=== PATIENT | female | born 1950 | race Caucasian/White ===

== ENCOUNTER 2022-07-30 13:00 | Outpatient (RCR) | payer MEDICARE, MEDICAID, SELFPAY ==
--- NOTE | 2022-05-12 14:20 | HP.PTEVAL_ITS ---
Patient's Visit Information ANA Lopez CASE is a 71 year old F referred to Physical Therapy by DANIEL CASTILLO with a diagnosis of R TKA 02/12/22. Date of Evaluation: 05/12/22 Physical Therapist: Bharath Scott, PT, ATC - Visit Plan Frequency: 3x /Week Duration: 4 Weeks Plan: R knee stretching and strengthening, balance and proprio, core strengthening, everardo, and HEP - Subjective DOS: 02/12/22. Pt reports she had a R TKA performed at that time. Pt reports she had home health after that for only 11 visits over the past 3 months. Pt reports she is still in a lot of pain at this time, more at some times than others. Pt reports she has done pretty well with her rehab at this time, but notes she is unable to fully extend her R knee. Pt reports she continues to experience sleep difficulty at this time secondary to pain. Pt reports occasional tingling and numbness in R LE. Pt has no stairs at home. Pt reports she is able to perform most of her house chores at this time, but is limited secondary to pain and fatigue. 1/10 pain at rest, 4/10 pain at worst (when she goes out and walks for a period of time) - Pain R knee Pain Intensity (Out of 10): 1 Pain Intensity Range: 4 - Objective Neuro: B LE sensation is WNL to light touch. Girth at joint line: L knee 36 cm, R knee 41 cm. ROM: L knee 0-10-120; R knee 0-20-110 degrees. MMT: L knee flex= 30, ext= 37 #F; R knee flex= 23, ext= 25 #F. TU.74 seconds. Stairs: Pt is very slow with negotiation. Requires 2 UE's. reciprocal up stairs, one at a time down stairs - Balance/Special Test Scores Lower Extremity Functional Score: 34 - Goals Goal 1:: Decrease R knee pain x 50% to aid with sleep Goal Time Frame: 4-6 Weeks Goal 2:: Increase R knee ROM x 20 degrees to aid with restoring a more normalized gait pattern Goal Time Frame: 4-6 Weeks Goal 3:: Increase R knee strength x 5-10 #F to aid with stair negotiation Goal Time Frame: 4-6 Weeks Goal 4:: I with HEP Goal Time Frame: 4-6 Weeks - Rehabilitation Potential Physical Therapy Diagnosis: Pt has R knee pain, weakness, and limited ROM secondary to R TKA Rehabilitation Potential: Good - Anticipated Interventions Patient/Client Instruction: Educate patient on: Condition, Plan of Care For the Purpose of:: To improve self management Therapeutic Exercise to Include: Strength training, Endurance training, Balance training, Gait and locomotor training, Passive ROM, Active ROM, Dynamic Lumbar Stabilization For the Purpose of:: To decrease pain, To increase ROM, To improve muscle performance and motor function Cryotherapy (ice pack, ice massage): Yes For the Purpose of:: To decrease pain Thank you for the opportunity to evaluate your patient. For Medicare and Medicare HMO plans, please review the plan of care and approve it. It will need to be FAXED BACK to us at [phone] for Medicare purposes. For Medicare only, by signing this I certify the plan of care. Please let me know if there are questions or concerns regarding this plan of care. Physician Signature: Date:
--- NOTE | 2022-06-15 15:07 | HP.PTREVAL ---
DANIEL CASTILLO, It has been my pleasure to treat ANA Lopez CASE over the last 12 visits for R TKA 02/12/22. Please see the progress note below for an update on the physical therapy plan of care! Subjective: Only mild pain this date Objective/Function: R knee pain ranges from 1-3/10. R knee MMT: flex= 21, ext= 38 #F. R knee ROM: 0-15-107 degrees Plan Plan: Recheck following DrArgelia visit Balance/Gait/Functional tests - Balance/Special Test Scores Lower Extremity Functional Score: 34 Goals Goal 1:: Decrease R knee pain x 50% to aid with sleep Goal Time Frame: 4-6 Weeks Goal Progress: Goal Met Goal 2:: Increase R knee ROM x 20 degrees to aid with restoring a more normalized gait pattern Goal Time Frame: 4-6 Weeks Goal Progress: Progressing Goal 3:: Increase R knee strength x 5-10 #F to aid with stair negotiation Goal Time Frame: 4-6 Weeks Goal Progress: Progressing Goal 4:: I with HEP Goal Time Frame: 4-6 Weeks Goal Progress: Goal Met Anticipated Interventions Patient/Client Instruction: Educate patient on: Condition, Plan of Care For the Purpose of:: To improve self management Therapeutic Exercise to Include: Strength training, Endurance training, Balance training, Gait and locomotor training, Passive ROM, Active ROM, Dynamic Lumbar Stabilization For the Purpose of:: To decrease pain, To increase ROM, To improve muscle performance and motor function Cryotherapy (ice pack, ice massage): Yes For the Purpose of:: To decrease pain Please do not hesitate to contact me at [phone] by phone or if you have questions or concerns regarding this new plan of care! Sincerely, Bharath Scott, PT, ATC
--- NOTE | 2022-07-05 10:35 | HP.PTREVAL ---
DANIEL CASTILLO, It has been my pleasure to treat ANA Lopez CASE over the last 17 visits for R TKA 02/12/22. Please see the progress note below for an update on the physical therapy plan of care! Subjective: Pt reports her pain ranges from 1-3/10 Objective/Function: R knee pain ranges from 1-3/10. R knee MMT: ext= 22 #F, flex= 35 #F. R knee ROM: 0-20-103. Pt is able to negotiate one flight of stairs, but negotiates stairs one step at a time and requires 2 handrails. Pt is showing excellent progress with strength and pain, but still lacks functional ROM for IADL's Plan Plan: Attempt to get 12 more visits to focus on functional strength and ROM of the R knee Balance/Gait/Functional tests - Balance/Special Test Scores Lower Extremity Functional Score: 43 Goals Goal 1:: Decrease R knee pain x 50% to aid with sleep Goal Time Frame: 4-6 Weeks Goal Progress: Goal Met Goal 2:: Increase R knee ROM x 20 degrees to aid with restoring a more normalized gait pattern Goal Time Frame: 4-6 Weeks Goal Progress: Progressing Goal 3:: Increase R knee strength x 5-10 #F to aid with stair negotiation Goal Time Frame: 4-6 Weeks Goal Progress: Progressing Goal 4:: I with HEP Goal Time Frame: 4-6 Weeks Goal Progress: Goal Met Goal 5:: Pt will be able to negotiate 10 stairs reciprocally with no handrails to aid with safety in the community Goal Time Frame: 4-6 Weeks Goal Progress: New goal Anticipated Interventions Patient/Client Instruction: Educate patient on: Condition, Plan of Care For the Purpose of:: To improve self management Therapeutic Exercise to Include: Strength training, Endurance training, Balance training, Gait and locomotor training, Passive ROM, Active ROM, Dynamic Lumbar Stabilization For the Purpose of:: To decrease pain, To increase ROM, To improve muscle performance and motor function Cryotherapy (ice pack, ice massage): Yes For the Purpose of:: To decrease pain Please do not hesitate to contact me at [phone] by phone or if you have questions or concerns regarding this new plan of care! Sincerely, Bharath Scott, PT, ATC
--- NOTE | 2022-11-18 17:36 | HP.PT.NRP ---
ANA Lopez CASE was seen in my office for initial evaluation on 05/12/22. The following Plan of Care was established for this patient: Initial Frequency: 3x /Week Initial Duration: 4 Weeks Patient/Client Instruction: Educate patient on: Condition, Plan of Care For the Purpose of:: To improve self management Therapeutic Exercise to Include: Strength training, Endurance training, Balance training, Gait and locomotor training, Passive ROM, Active ROM, Dynamic Lumbar Stabilization For the Purpose of:: To decrease pain, To increase ROM, To improve muscle performance and motor function Cryotherapy (ice pack, ice massage): Yes For the Purpose of:: To decrease pain This patient was last seen in our office . Pertinent comments regarding their Physical therapy will appear below: Care was transferred to another v # At this point I will be discontinuing this patient from physical therapy. I would be happy to see this patient again in the future if found appropriate by the physician. Thank you! Bharath Scott, PT, ATC Balance/Gait/Functional tests - Balance/Special Test Scores Lower Extremity Functional Score: 43
== END 2022-07-30 19:00 | disposition home or self-care (01) ==
LOC: PT 13:00
PROVIDERS: PCP Family Medicine
DX: M17.11 Unilateral primary osteoarthritis, right knee (principal); Z96.651 Presence of right artificial knee joint; Z47.1 Aftercare following joint replacement surgery
CPT/HCPCS: 97110; 97161; 97164

== ENCOUNTER 2023-02-21 11:00 | Outpatient (RCR) | payer MEDICARE, MEDICAID, SELFPAY ==
--- NOTE | 2022-08-11 10:49 | HP.PTEVAL ---
Patient's Visit Information ANA Lopez CASE is a 72 year old F referred to Physical Therapy by DANIEL CASTILLO with a diagnosis of S/P TOTAL KNEE ARTHOPLASTY ,RIGHT ,OSTOARTHRITIS RIGHT. Date of Evaluation: 08/11/22 Physical Therapist: Jer Herman, PT, Cert MDT, OCS - Visit Plan Frequency: 2x /Week Duration: 4 Weeks Plan: PT INTERVETIONS ROM/FLEXABILITY KNEE ,STRENGTHENING QUADS/HAMS/HIP ,AND FUNCTIIONAL STRENGTHNEING - Subjective This 72 y/o female presents to physical therapy with right TKA done by Dr. Luecro February 12 at [facility]. Patient d/c to home thus had to return to [facility] due pain for~ 5 days then transferred to [facility] ~ 2//2 weeks then had 2 months of [facility] PT . Then had PT at for TKR . Patient has is story home no stairs. Patient has both walk-in in shower and tub/shower. Patient has no pain . Patient uses cane occasionally . Patient sleeping good. Patient denies paresthesia/tingling. Patient seen June. Patient goal to ambualted with no cane and improve function. Patient TKA impairs function and ADLS'. Patient has had 2 other knee surgery arthroscopy . SOCIAL: significant other. VOCATION: retired - Objective POSTURE: mild forward posture knee slightly flexed forward. PALAPTION : unremarkable. NEURO: denies paresthesia/tingling ,reflexes C5-6-7 1/3 ,. EDEMA: absent. AROM: 10- 115 supine knee flexion. MMT: ( peak force) quads 36.7 , hamstrings 30.5 ,hip flexion 32.5 , ankle 5/5. GAIT: reciprocal pattern pattern mild stance swing phase swing phase. STAIRS: one step at descending ,ascending alternating 2 rails - Balance/Special Test Scores % Disability: 100 Lower Extremity Functional Score: 42 TUG Test Time Seconds: 10.2 - Goals Goal 1:: Patient to be I with comprehensive HEP Goal Time Frame: 4-6 Weeks Goal 2:: Patient normalize gait with improved swing phase during gait cycle Goal Time Frame: 4-6 Weeks Goal 3:: Patient to improve peak force by by 5-10 quads/hams improve function Goal Time Frame: 4-6 Weeks Goal 4:: Patient improve WOMAC by 5 points to improve function Goal Time Frame: 4-6 Weeks Goal 5:: Patient improve ROM flexion and extension by 5-10 degrees to improve gait Goal Time Frame: 4-6 Weeks Goal 6:: Patient to improve LFES score by 5 -10 points to improve gait - Rehabilitation Potential Physical Therapy Diagnosis: This patient underwent s/p TKR with current deficits of decrease ,gait ,ROM and stairs thus benefit from skilled PT Rehabilitation Potential: Good - Anticipated Interventions Patient/Client Instruction: Educate patient on: Condition, Plan of Care For the Purpose of:: To decrease pain, To increase ROM, To improve muscle performance and motor function, To improve ability to perform ADL's, To increase tolerance to activity/condition/position, To improve ability of physical actions for home/community/work/leisure, To improve health of tissue, To decrease soft tissue restriction, To increase flexibility/ROM Therapeutic Exercise to Include: Strength training, Endurance training, Balance training, Flexibilty training, Gait and locomotor training, Passive ROM, Active ROM Comment: quads/hams/hip For the Purpose of:: To decrease pain, To increase ROM, To improve muscle performance and motor function, To improve ability to perform ADL's, To increase tolerance to activity/condition/position, To improve ability of physical actions for home/community/work/leisure, To improve gait and locomotor functions, To improve health of tissue, To decrease soft tissue restriction, To increase flexibility/ROM, To improve endurance, To improve balance Thank you for the opportunity to evaluate your patient. For Medicare and Medicare HMO plans, please review the plan of care and approve it. It will need to be FAXED BACK to us at [phone] for Medicare purposes. For Medicare only, by signing this I certify the plan of care. Please let me know if there are questions or concerns regarding this plan of care. Physician Signature: Date:
--- NOTE | 2022-09-10 11:00 | HP.PTREVAL ---
DANIEL CASTILLO, It has been my pleasure to treat ANA Lopez CASE over the last 13 visits for S/P TOTAL KNEE ARTHOPLASTY ,RIGHT ,OSTOARTHRITIS RIGHT. Please see the progress note below for an update on the physical therapy plan of care! Subjective: Pt reports her balance is still poor. She notes she has lost her balance recently, mostly while negotiating stairs Objective/Function: R knee pain ranges from 2-3/10. R knee MMT: flex= 31, ext= 41 #F. R knee ROM: 0-15-115. Pt is progressing well toward Rx goals, but continues to experience unsteadiness with gait Plan Plan: PT INTERVETIONS ROM/FLEXABILITY KNEE ,STRENGTHENING QUADS/HAMS/HIP ,AND FUNCTIIONAL STRENGTHNEING Balance/Gait/Functional tests - Balance/Special Test Scores % Disability: 100 Lower Extremity Functional Score: 40 TUG Test Time Seconds: 10.2 Tug Test: <20 sec.=mostly independent Goals Goal 1:: Patient to be I with comprehensive HEP Goal Time Frame: 4-6 Weeks Goal Progress: Progressing Goal 2:: Patient normalize gait with improved swing phase during gait cycle Goal Time Frame: 4-6 Weeks Goal Progress: Goal Met Goal 3:: Patient to improve peak force by by 5-10 quads/hams improve function Goal Time Frame: 4-6 Weeks Goal Progress: Goal Met Goal 4:: Patient improve WOMAC by 5 points to improve function Goal Time Frame: 4-6 Weeks Goal Progress: Not tested today Goal 5:: Patient improve ROM flexion and extension by 5-10 degrees to improve gait Goal Time Frame: 4-6 Weeks Goal Progress: Progressing Goal 6:: Patient to improve LFES score by 5 -10 points to improve gait Anticipated Interventions Patient/Client Instruction: Educate patient on: Condition, Plan of Care For the Purpose of:: To decrease pain, To increase ROM, To improve muscle performance and motor function, To improve ability to perform ADL's, To increase tolerance to activity/condition/position, To improve ability of physical actions for home/community/work/leisure, To improve health of tissue, To decrease soft tissue restriction, To increase flexibility/ROM Therapeutic Exercise to Include: Strength training, Endurance training, Balance training, Flexibilty training, Gait and locomotor training, Passive ROM, Active ROM Comment: quads/hams/hip For the Purpose of:: To decrease pain, To increase ROM, To improve muscle performance and motor function, To improve ability to perform ADL's, To increase tolerance to activity/condition/position, To improve ability of physical actions for home/community/work/leisure, To improve gait and locomotor functions, To improve health of tissue, To decrease soft tissue restriction, To increase flexibility/ROM, To improve endurance, To improve balance Please do not hesitate to contact me at [phone] by phone or if you have questions or concerns regarding this new plan of care! Sincerely, Bharath Scott, PT, ATC
--- NOTE | 2022-10-29 07:18 | HP.PTREVAL_ITS ---
DANIEL CASTILLO, It has been my pleasure to treat ANA Lopez CASE over the last 26 visits for S/P TOTAL KNEE ARTHOPLASTY ,RIGHT ,OSTOARTHRITIS RIGHT. Please see the progress note below for an update on the physical therapy plan of care! Subjective: I am getting better overall, but I still have pain and feel weak Objective/Function: R knee pain is 2/10 and remains at that level. R knee MMT: flex= 22, ext= 39 #F. R knee ROM: 0-15-115. Pt is still progressing well with strength, but lacks functional ext ROM and still painful Plan Plan: Cont with progressing R LE stretching and strengthening Balance/Gait/Functional tests - Balance/Special Test Scores % Disability: 100 Lower Extremity Functional Score: 41 TUG Test Time Seconds: 10.2 Tug Test: <20 sec.=mostly independent Goals Goal 1:: Patient to be I with comprehensive HEP Goal Time Frame: 4-6 Weeks Goal Progress: Progressing Goal 2:: Patient normalize gait with improved swing phase during gait cycle Goal Time Frame: 4-6 Weeks Goal Progress: Goal Met Goal 3:: Patient to improve peak force by by 5-10 quads/hams improve function Goal Time Frame: 4-6 Weeks Goal Progress: Goal Met Goal 4:: Patient improve WOMAC by 5 points to improve function Goal Time Frame: 4-6 Weeks Goal Progress: Not tested today Goal 5:: Patient improve ROM flexion and extension by 5-10 degrees to improve gait Goal Time Frame: 4-6 Weeks Goal Progress: Progressing Goal 6:: Patient to improve LFES score by 5 -10 points to improve gait Anticipated Interventions Patient/Client Instruction: Educate patient on: Condition, Plan of Care For the Purpose of:: To decrease pain, To increase ROM, To improve muscle performance and motor function, To improve ability to perform ADL's, To increase tolerance to activity/condition/position, To improve ability of physical actions for home/community/work/leisure, To improve health of tissue, To decrease soft tissue restriction, To increase flexibility/ROM Therapeutic Exercise to Include: Strength training, Endurance training, Balance training, Flexibilty training, Gait and locomotor training, Passive ROM, Active ROM Comment: quads/hams/hip For the Purpose of:: To decrease pain, To increase ROM, To improve muscle per formance and motor function, To improve ability to perform ADL's, To increase tolerance to activity/condition/position, To improve ability of physical actions for home/community/work/leisure, To improve gait and locomotor functions, To improve health of tissue, To decrease soft tissue restriction, To increase flexibility/ROM, To improve endurance, To improve balance Please do not hesitate to contact me at [phone] by phone or if you have questions or concerns regarding this new plan of care! Sincerely, Bharath Scott, PT, ATC
--- NOTE | 2022-12-03 09:39 | HP.PTREVAL ---
DANIEL CASTILLO, It has been my pleasure to treat ANA Lopez CASE over the last 35 visits for S/P TOTAL KNEE ARTHOPLASTY ,RIGHT ,OSTOARTHRITIS RIGHT. Please see the progress note below for an update on the physical therapy plan of care! Subjective: I am really sore today. Pain woke me up last night. Objective/Function: R knee pain ranges from 3-5/10. R knee MMT: flex= 16, ext= 23 #F. R knee ROM: 0-10-108 degrees. Pt continues to have pain, limited ROM, and weakness in the R knee Plan Plan: Cont with progressing R knee ROM, R LE stretching and strengthening Balance/Gait/Functional tests - Balance/Special Test Scores % Disability: 100 Lower Extremity Functional Score: 37 TUG Test Time Seconds: 10.2 Tug Test: <20 sec.=mostly independent Goals Goal 1:: Patient to be I with comprehensive HEP Goal Time Frame: 4-6 Weeks Goal Progress: Progressing Goal 2:: Patient normalize gait with improved swing phase during gait cycle Goal Time Frame: 4-6 Weeks Goal Progress: Goal Met Goal 3:: Patient to improve peak force by by 5-10 quads/hams improve function Goal Time Frame: 4-6 Weeks Goal Progress: Progressing Goal 4:: Patient improve WOMAC by 5 points to improve function Goal Time Frame: 4-6 Weeks Goal Progress: Not tested today Goal 5:: Patient improve ROM flexion and extension by 5-10 degrees to improve gait Goal Time Frame: 4-6 Weeks Goal Progress: Not Progressing Goal 6:: Patient to improve LFES score by 5 -10 points to improve gait Goal Progress: regressed as of today due Anticipated Interventions Patient/Client Instruction: Educate patient on: Condition, Plan of Care For the Purpose of:: To decrease pain, To increase ROM, To improve muscle performance and motor function, To improve ability to perform ADL's, To increase tolerance to activity/condition/position, To improve ability of physical actions for home/community/work/leisure, To improve health of tissue, To decrease soft tissue restriction, To increase flexibility/ROM Therapeutic Exercise to Include: Strength training, Endurance training, Balance training, Flexibilty training, Gait and locomotor training, Passive ROM, Active ROM Comment: quads/hams/hip For the Purpose of:: To decrease pain, To increase ROM, To improve muscle performance and motor function, To improve ability to perform ADL's, To increase tolerance to activity/condition/position, To improve ability of physical actions for home/community/work/leisure, To improve gait and locomotor functions, To improve health of tissue, To decrease soft tissue restriction, To increase flexibility/ROM, To improve endurance, To improve balance Please do not hesitate to contact me at [phone] by phone or if you have questions or concerns regarding this new plan of care! Sincerely, Bharath Scott, PT, ATC
--- NOTE | 2023-01-06 11:27 | HP.PTREVAL_ITS ---
DANIEL CASTILLO, It has been my pleasure to treat ANA Lopez CASE over the last 43 visits for S/P TOTAL KNEE ARTHOPLASTY ,RIGHT ,OSTOARTHRITIS RIGHT. Please see the progress note below for an update on the physical therapy plan of care! Subjective: I was very sore yesterday. I am better today Objective/Function: R knee pain ranges from 2-3/10. R knee MMT: flex= 39, ext= 30 #F. R knee ROM: 0-18-110 degrees. Pt still lacks functional strength and ROM in her R knee for all IADL's Plan Plan: Focus on R knee quad strengthening and R knee ROM Balance/Gait/Functional tests - Balance/Special Test Scores % Disability: 100 Lower Extremity Functional Score: 43 TUG Test Time Seconds: 10.2 Tug Test: <20 sec.=mostly independent Goals Goal 1:: Patient to be I with comprehensive HEP Goal Time Frame: 4-6 Weeks Goal Progress: Goal Met Goal 2:: Patient normalize gait with improved swing phase during gait cycle Goal Time Frame: 4-6 Weeks Goal Progress: Goal Met Goal 3:: Patient to improve peak force by by 5-10 quads/hams improve function Goal Time Frame: 4-6 Weeks Goal Progress: Goal Met Goal 4:: Patient improve WOMAC by 5 points to improve function Goal Time Frame: 4-6 Weeks Goal Progress: Not tested today Goal 5:: Patient improve ROM flexion and extension by 5-10 degrees to improve gait Goal Time Frame: 4-6 Weeks Goal Progress: Progressing Goal 6:: Patient to improve LFES score by 5 -10 points to improve gait Goal Progress: Progressing Anticipated Interventions Patient/Client Instruction: Educate patient on: Condition, Plan of Care For the Purpose of:: To decrease pain, To increase ROM, To improve muscle performance and motor function, To improve ability to perform ADL's, To increase tolerance to activity/condition/position, To improve ability of physical actions for home/community/work/leisure, To improve health of tissue, To decrease soft tissue restriction, To increase flexibility/ROM Therapeutic Exercise to Include: Strength training, Endurance training, Balance training, Flexibilty training, Gait and locomotor training, Passive ROM, Active ROM Comment: quads/hams/hip For the Purpose of:: To decrease pain, To increase ROM, To improve muscle perfor diego and motor function, To improve ability to perform ADL's, To increase tolerance to activity/condition/position, To improve ability of physical actions for home/community/work/leisure, To improve gait and locomotor functions, To improve health of tissue, To decrease soft tissue restriction, To increase flexibility/ROM, To improve endurance, To improve balance Please do not hesitate to contact me at [phone] by phone or if you have questions or concerns regarding this new plan of care! Sincerely, Bharath Scott, PT, ATC
--- NOTE | 2023-02-21 11:34 | HP.PTDCSUM ---
Discharge Summary D/C summary: It has been my pleasure to treat ANA Lopez CASE referred by DANIEL CASTILLO, with the diagnosis of S/P TOTAL KNEE ARTHOPLASTY ,RIGHT ,OSTOARTHRITIS RIGHT for a total of 55 visit(s). Discharge Date: Please see the following information for a summary of their discharge status. Subjective Subjective: Minimal pain today, but a lot of stiffness Pain B legs: Pain Intensity (Out of 10): 1 Overall Improvement % Improvement: 90 Objective Objective/Function: R knee pain 1/10 R knee ROM: 0-15-110 R knee MMT: flex= 28, ext= 45 #F Pt is I with HEP Goals Goal 1:: Patient to be I with comprehensive HEP Goal Progress: Goal Met Goal 2:: Patient normalize gait with improved swing phase during gait cycle Goal Progress: Goal Met Goal 3:: Patient to improve peak force by by 5-10 quads/hams improve function Goal Progress: Goal Met Goal 4:: Patient improve WOMAC by 5 points to improve function Goal Progress: Not tested today Goal 5:: Patient improve ROM flexion and extension by 5-10 degrees to improve gait Goal Progress: Progressing Goal 6:: Patient to improve LFES score by 5 -10 points to improve gait Goal Progress: Goal Met Plan Plan: Discharge to HEP D/C Information d/c sentence: If there are questions or concerns regarding this patient's physical therapy, please feel free to call me at [phone]. Thank you for the referral of this patient. Sincerely, Bharath Scott, PT, ATC Balance/Gait/Functional tests Balance/Special Test Scores % Disability: 100 Lower Extremity Functional Score: 42 TUG Test Time Seconds: 10.2 Tug Test: <20 sec.=mostly independent
== END 2023-02-21 19:00 | disposition home or self-care (01) ==
LOC: PT 11:00
PROVIDERS: PCP Family Medicine
DX: M17.11 Unilateral primary osteoarthritis, right knee (principal); Z96.651 Presence of right artificial knee joint
CPT/HCPCS: 97110; 97162; 97164

== ENCOUNTER → 2023-05-19 | Outpatient (CLI) | payer MEDICARE, MEDICAID, SELFPAY ==
[2023-05-19 12:27] LABS: Absolute Lymphocyte Count 1.95 X10^3/uL (0.83-4.51); Absolute Neutrophil Count 4.8 X10^3/uL (2.0-7.7); Basophil# 0.07 X10^3/uL; Basophil% 0.8 % (0-1); Eosinophil# 0.78 X10^3/uL; Eosinophils% 9.4 % (0-5); Hematocrit 40.6 % (37-47); Hemoglobin 12.7 g/dL (12.0-15.0); Lymphocyte # 1.95 X10^3/ul (0.83-4.51); Lymphocyte % 23.6 % (19-41); Mean Corp Hgb Conc 31.3 g/dL (32-36); Mean Corpuscular Hgb 31.4 pg (27.0-32.0); Mean Corpuscular Volume 100.2 fL (81-99); Mean Platelet Vol. 11.5 fl (6.2-12.0); Monocyte# 0.63 X10^3/uL; Monocyte% 7.6 % (0-10); NRBC Flagged by Analyzer 0 % (0-5); Neutrophil # 4.81 X10^3/uL (2.7-7.7); Neutrophil % 58.2 % (47-70); Platelet Count 231 K/mm3 (150-450); RBC Distribution Width SD 51.5 fl (35.1-43.9); Red Blood Count 4.05 M/mm3 (4.2-5.4); White Blood Count 8.3 K/mm3 (4.4-11.0)
[2023-05-19 13:14] LABS: AST(SGOT) 9 U/L (15-37); Alanine Aminotransfer ALT/SGPT 23 U/L (13-56); Albumin, Serum 3.4 g/dL (3.2-5.0); Alkaline Phosphatase 86 U/L (45-117); Anion Gap 6 (5-15); BUN 15 mg/dL (7-18); BUN/Creat Ratio 13.5 RATIO (10-20); Calcium,Total 9.4 mg/dL (8.5-10.1); Chloride 111 mmol/L (98-107); Cholesterol 102 mg/dL (200); Creatinine, Serum 1.11 mg/dL (0.55-1.02); EST Glomerular Filtration Rate 51 mL/min (>60); Est Glom Filt Rate - Afr Amer 62 mL/min (>60); Globulin 3.3 g/dL (2.2-4.2); Glucose 127 mg/dL (74-106); High Density Lipoprotein 48 mg/dL; Potassium 4.7 mmol/L (3.5-5.1); Protein, Total 6.7 g/dL (6.4-8.2); Sodium Level 141 mmol/L (136-145); Thyroid Stim Hormone (TSH) 1.89 uIU/mL (0.358-3.74); Triglycerides 49 mg/dL; Very Low Density Lipoprotein 10 mg/dL (5-40)
== END | disposition home or self-care (01) ==
LOC: MFPLAB 10:27
PROVIDERS: PCP Family Medicine; Visit Provider Family Medicine
DX: E11.9 Type 2 diabetes mellitus without complications (principal); Z80.0 Family history of malignant neoplasm of digestive organs; E78.5 Hyperlipidemia, unspecified; I10 Essential (primary) hypertension
CPT/HCPCS: 36415; 80053; 80061; 83036; 84443; 85025

== ENCOUNTER 2023-05-24 20:16 | Emergency (ER) | payer MEDICARE, MEDICAID, SELFPAY ==
[2023-05-24 20:18] VITALS: BP 132/88; PULSE 83; RESP 15; TEMP 36.4; O2SAT 96
--- NOTE | 2023-05-24 20:53 | EKG12_ITS ---
Test Reason : LIGHT HEADEDNESS Blood Pressure : / mmHG Vent. Rate : 076 BPM Atrial Rate : 076 BPM P-R Int : 188 ms QRS Dur : 120 ms QT Int : 422 ms P-R-T Axes : 029 -53 -07 degrees QTc Int : 474 ms Normal sinus rhythm Left axis deviation Low voltage QRS Right bundle branch block Inferior infarct , age undetermined Anterolateral infarct , age undetermined Abnormal ECG Confirmed by EBENEZER SANTOS MD ([id number]), mapping editor CONOR VILLAR ([id number]) on 05/26/2023 2:06:13 PM Referred By: AYAZ Confirmed By:EBENEZER SANTOS MD
--- NOTE | 2023-05-24 20:55 | EX.ED.DYSGE1 ---
HPI History of Present Illness Chief Complaint: Dizziness Detail of Chief Complaint: Lightheaded Informant: patient Onset/Context/Timing Onset: Today Narrative Narrative: Patient presents secondary to feeling lightheaded. She has had recent vertigo and is currently on meclizine. She is currently going to physical therapy for both her knee as well as vestibular therapy for her vertigo. She states today she feels lightheaded and specifically designates this is different than her vertigo. She states she did see a new physician last week and they called her and told her she needs to drink more water. She does admit that she has been drinking a lot of plain water for the past 5 days. She is not sure if this is related to her symptoms. [facility] Medical History Diabetes type 2, controlled HTN (hypertension) Vertigo Allergy/AdvReac Type Severity Reaction Status Date / Time codeine AdvReac HYPERACTIVI Verified 05/24/23 20:24 TY hydrochlorothiazide AdvReac DRY MOUTH Verified 05/24/23 20:24 [From Hyzaar] losartan [From Hyzaar] AdvReac DRY MOUTH Verified 05/24/23 20:24 pioglitazone [From Actos] AdvReac WEIGHT GAIN Verified 05/24/23 20:25 ADVAIR DISKUS AdvReac Mild ELEVATED Uncoded 05/24/23 20:25 LIVER FUNCTION Social History Smoking Status: Unknown if ever smoked ROS ROS ED Constitutional Constitutional ED: Denies chills or fever(s) Eyes Eyes: Denies discharge from eye(s) ENT ENT ED: Denies discharge from eye(s), rhinorrhea or sore throat Cardiovascular Cardiovascular: Denies chest pain or palpitations Respiratory/Chest Respiratory/Chest: Denies cough or dyspnea Gastrointestinal Gastrointestinal: Denies abdominal pain, nausea or vomiting Genitourinary Genitourinary ED: Denies difficulty urinating or dysuria Musculoskeletal Musculoskeletal: Denies back pain or extremity pain Integumentary Denies Abrasions or rash Neurologic Neurologic: Denies headache(s) or weakness Psychiatric Psychiatric: Denies anxiety or depression Allergic/Immunologic Allergic/Immunologic ED: Denies lip swelling or urticaria EXAM Physical Exam Const Vital Signs: 05/24/23 20:18 05/24/23 20:44 05/24/23 22:04 Temperature 97.5 F L Temperature Source Temporal Pulse Rate 83 79 Respiratory Rate 15 20 H Respiratory Pattern Normal Blood Pressure 132/88 H 139/79 H Blood Pressure Mean 102 99 Pulse Ox 96 96 Oxygen Delivery Method Room Air Room Air Positive well nourished and well developed General Appearance ED: well developed HEENT Reports normocephalic and head/scalp atraumatic Eyes PERRL and EOMs intact bilaterally Neck supple Chest Wall inspection of chest normal and palpation of chest normal Resp normal respiratory effort and clear to auscultation bilaterally Cardio regular rate and regular rhythm GI non-tender Palpation: soft Extremity Extremity Narrative: Mild right knee tenderness palpation. Neuro oriented x3 and no sensory deficits noted Sensorium / Orientation: alert Motor Exam: strength 5/5 throughout Psych mental status grossly normal Skin no rashes or lesions noted MDM MDM MDM Narrative Medical decision making narrative: Patient placed on monitoring specialist. EKG obtained to evaluate for cardiac arrhythmia/ischemia. Labwork obtained to evaluate for leukocytosis, anemia, and electrolyte derangement. Patient given IV fluids. Lab Data Attestation: I reviewed the patient's lab results. Labs: Laboratory Results - last 24 hr 05/24/23 05/24/23 21:15 21:30 WBC 10.6 RBC 4.53 Hgb 14.1 Hct 44.2 MCV 97.6 MCH 31.1 MCHC 31.9 L RDW Std Deviation 49.3 H RDW Coeff of Kwesi 13.7 Plt Count 255 MPV 11.0 Immature Gran % (Auto) 0.400 Neut % (Auto) 60.0 Lymph % (Auto) 23.4 [place] % (Auto) 8.3 Eos % (Auto) 7.0 H Baso % (Auto) 0.9 Absolute Neuts (auto) 6.3 Absolute Lymphs (auto) 2.47 Nucleated RBC % 0 Sodium 141 Potassium 4.3 Chloride 110 H Carbon Dioxide 24.0 Anion Gap 7 BUN 12 Creatinine 1.40 H Est GFR (MDRD) Af Amer 47 L Est GFR (MDRD) Non-Af 39 L BUN/Creatinine Ratio 8.6 L Glucose 148 H Calcium 9.8 Total Bilirubin 0.30 Direct Bilirubin 0.10 AST 18 ALT 36 Alkaline Phosphatase 93 Total Protein 7.2 Albumin 3.8 Globulin 3.4 Urine Color Yellow Urine Clarity Clear Urine pH 6.5 Ur Specific [place] 1.010 Urine Protein Negative Urine Glucose (UA) 1000 H Urine Ketones Negative Urine Occult Blood Negative Urine Nitrite Negative Urine Bilirubin Negative Urine Urobilinogen Normal Ur Leukocyte Esterase 25 H Urine RBC 0 SEEN Urine WBC 0-5 SEEN Ur Squamous Epith Cells 0-5 SEEN Urine Bacteria 0 SEEN Urine Mucus 0 SEEN EKG Initial EKG: Attestation: I personally reviewed and interpreted this EKG as follows: Interpretation: Sinus Rhythm (Sinus at 76 with no acute ischemia.) Treatment and Re-Evaluation :: CBC was normal white count at 10.6 with a hemoglobin of 14.1. Chemistry studies remarkable for a BUN of 12 and a creatinine 1.4. On the her creatinine was 1.11. Her glucose is 148. LFTs are unremarkable. Urinalysis reveals glucose but no evidence of infection. EKG is sinus rhythm at 76 bpm with no acute ischemia. Patient was able to get up and ambulate to the restroom and back without difficulty. She states she does feel improved. I did review her medication list. She is on metformin. I advised her we would need to keep a close eye on her creatinine values given that she is on metformin. After she had blood work drawn on the her PCP advised her to increase fluid intake and she has been drinking a lot of water since that time. In spite of that, her creatinine has increased to 1.4. I have asked her to call her PCPs office tomorrow to notify them of her symptoms and lab findings tonight. My guess is she will have repeat labs drawn next week. Patient is comfortable with this plan. Discharge Plan Triage Chief Complaint: Dizziness ED Provider: Ingrid Castro Dx/Rx/DC Orders Clinical Impression: Lightheadedness Instructions: ED Dizziness, Uncertain Cause Primary Care Provider: Jessica Felder Referrals: Jessica Felder MD [Primary Care Provider] - 1 Week Activity Restrictions/Additional Instructions: As discussed, please call Dr. Felder's office tomorrow. Your creatinine was 1.11 on May 19. In spite of increasing your fluid intake and drinking more water, your creatinine has worsened to 1.4 on tonight's labs. My guess is they will want to follow this closely because of your metformin use. You will likely need repeat labs next week. Disposition Disposition: Home, Self Care
[2023-05-24] MEDS: 0.9% Normal Saline (500mL Bag) 500 ML 1000 ML IV (21:18)
[2023-05-24 21:25] LABS: Absolute Lymphocyte Count 2.47 X10^3/uL (0.83-4.51); Absolute Neutrophil Count 6.3 X10^3/uL (2.0-7.7); Basophil% 0.9 % (0-1); Eosinophil# 0.74 X10^3/uL; Hematocrit 44.2 % (37-47); Hemoglobin 14.1 g/dL (12.0-15.0); Lymphocyte # 2.47 X10^3/ul (0.83-4.51); Lymphocyte % 23.4 % (19-41); Mean Corp Hgb Conc 31.9 g/dL (32-36); Mean Corpuscular Hgb 31.1 pg (27.0-32.0); Mean Corpuscular Volume 97.6 fL (81-99); Monocyte# 0.88 X10^3/uL; Monocyte% 8.3 % (0-10); NRBC Flagged by Analyzer 0 % (0-5); Neutrophil # 6.34 X10^3/uL (2.7-7.7); Platelet Count 255 K/mm3 (150-450); RBC Distribution Width CV 13.7 % (11.6-14.6); RBC Distribution Width SD 49.3 fl (35.1-43.9); Red Blood Count 4.53 M/mm3 (4.2-5.4); White Blood Count 10.6 K/mm3 (4.4-11.0)
[2023-05-24 21:38] LABS: Bacteria 0 SEEN /hpf (None Seen); Mucous, Urine 0 SEEN /hpf (<or=2+); Red Blood Cells-Urine 0 SEEN /hpf (0-5)
[2023-05-24 21:40] LABS: Color, Urine Yellow (Yellow); Glucose, Dipstick 1000 mg/dl (Normal); Ketone-Dipstick Negative (Negative); Leukocyte Esterase-Dipstick 25 /ul (Negative); Nitrite-Dipstick Negative (Negative); Occult Blood-Urine Negative /ul (Negative); Protein-Dipstick Negative (Negative); Urine Bilirubin Dipstick Negative (Negative); Urine Clarity Clear (Clear); Urine Urobilinogen Normal (Normal); Urine pH 6.5 (5.0 - 8.0)
[2023-05-24 21:42] LABS: AST(SGOT) 18 U/L (15-37); Alanine Aminotransfer ALT/SGPT 36 U/L (13-56); Albumin, Serum 3.8 g/dL (3.2-5.0); Alkaline Phosphatase 93 U/L (45-117); Anion Gap 7 (5-15); BUN 12 mg/dL (7-18); BUN/Creat Ratio 8.6 RATIO (10-20); Calcium,Total 9.8 mg/dL (8.5-10.1); Chloride 110 mmol/L (98-107); EST Glomerular Filtration Rate 39 mL/min (>60); Est Glom Filt Rate - Afr Amer 47 mL/min (>60); Globulin 3.4 g/dL (2.2-4.2); Glucose 148 mg/dL (74-106); Potassium 4.3 mmol/L (3.5-5.1); Protein, Total 7.2 g/dL (6.4-8.2); Sodium Level 141 mmol/L (136-145)
[2023-05-24 21:58] LABS: Squamous Epithelial Cells - UA 0-5 SEEN /hpf (5-10); White Blood Cells 0-5 SEEN /hpf (0-5)
[2023-05-24 22:04] VITALS: BP 139/79; PULSE 79; RESP 20; O2SAT 96
== END 2023-05-24 22:40 | disposition home or self-care (01) ==
PROVIDERS: Emergency Provider Emergency Medicine; PCP Family Medicine; Visit Provider Emergency Medicine
DX: R42 Dizziness and giddiness (principal); E11.9 Type 2 diabetes mellitus without complications; I10 Essential (primary) hypertension
CPT/HCPCS: 80048; 80076; 81001; 85025; 93005; 96360; 99283; J7040; A4216

== ENCOUNTER → 2023-06-06 | Outpatient (CLI) | payer MEDICARE, MEDICAID, SELFPAY ==
--- NOTE | 2023-06-06 12:36 | US_ITS ---
STUDY: RENAL ULTRASOUND - COMPLETE REASON FOR EXAM: Female, 72 years old. Hx of cyst on right kidney TECHNIQUE: Ultrasound evaluation of the kidneys was performed with real-time and static durán-scale imaging. COMPARISON: None. FINDINGS: RIGHT KIDNEY: Normal location of the right kidney, which is normal in size. The right kidney measures 12.7 cm. There is a normal cortex of the right kidney. The renal cortex measures 1.2 cm. 2 cm parapelvic cyst in the midsection of right kidney. There are no right renal calculi. There is no right hydronephrosis. DISTAL RIGHT URETER: There is non-visualization of the distal right ureter. There is no demonstrated right ureterovesical junction calculus. There is a visualized right ureteral jet. LEFT KIDNEY: Normal location of the left kidney, which is normal in size. The left kidney measures 13.6 cm. There is a normal cortex of the left kidney. The renal cortex measures 1.1 cm. 2 cm parapelvic cyst in the midsection left kidney. There are no left renal calculi. There is no left hydronephrosis. DISTAL LEFT URETER: There is non-visualization of the distal left ureter. There is no demonstrated left ureterovesical junction calculus. There is a visualized left ureteral jet. BLADDER: The distended urinary bladder has a volume of 88 ml. The empty urinary bladder has a volume of ml. There is a normal wall thickness of the distended urinary bladder. There is no demonstrated mass within the urinary bladder. There are no demonstrated bladder calculi. US/Kidney and Bladder IMPRESSION: Normal ultrasound of the kidneys and urinary bladder. Small bilateral renal cysts. Electronically Signed: Chava Fong MD at 23:27 EDT ,
== END | disposition home or self-care (01) ==
LOC: US 12:36
PROVIDERS: PCP Family Medicine; Referring Provider Family Medicine; Visit Provider Family Medicine
DX: N28.1 Cyst of kidney, acquired (principal)
CPT/HCPCS: 76770

== ENCOUNTER 2023-07-18 10:30 | Outpatient (RCR) | payer MEDICARE, MEDICAID, SELFPAY ==
--- NOTE | 2023-03-04 15:14 | HP.PTEVAL ---
Patient's Visit Information Visit Information Visit Information: ANA Lopez CASE is a 72 year old F referred to Physical Therapy by AIMEE GIBSON with a diagnosis of R TKA. Date of Evaluation: 03/04/23 Physical Therapist: Bharath Scott, PT, ATC Visit Plan Frequency: 2x /Week Duration: 4-6 Weeks Plan: R knee stretching and strengthening, balance and proprio, core stab ex's, nustep, and HEP Subjective Subjective: DOS: February 12 2022. Pt notes she had a R TKA performed at that time. Pt reports she had home health for 8 weeks after her surgery which was not very helpful. Pt notes her knee has been stiff and sore ever since her surgery. Pt reports she did come here for a couple months in the past, but notes she continues to struggle with stair negotiation and prolonged standing/walking. Pt notes she has to sit down if she is on her feet for greater than one hour. Pt is retired at this time. Pt reports no tingling or numbness in her feet other than the bottom of her feet secondary to neuropathy. Pt reports she continues to have sleep difficulty secondary to pain. Pt reports her major goal for coming back at this time is to return to being able to perform all her IADL's without limitation. 2/10 pain while sitting here in the clinic, 6/10 with prolonged standing (like when she is cooking in her kitchen) Pain R knee: Pain Intensity (Out of 10): 2 Pain Intensity Range: 6 Objective Objective: Neuro: B LE sensation is WNL to light touch. B patellar reflex= 1/3 Girth at joint line: L knee 37 cm, R knee 42 cm ROM: R knee 0-15-107, L knee 0-7-115 MMT: R knee flex= 31, ext= 22 #F: L knee flex= 35, ext= 40 #F Gait: Pt is able to ambulate 340 feet until feeling fatigued and needing to rest Balance/Special Test Scores WOMAC Total Score: 35 WOMAC Percentatge: 63.5500 Goals Goal 1:: Decrease R knee pain x 50% to aid with sleep Goal Time Frame: 4-6 Weeks Goal 2:: Increase R knee ext ROM x 10 degrees to aid with IADL's Goal Time Frame: 4-6 Weeks Goal 3:: Pt will be able to ambulate greater than 1000 feet to aid with community ambulation Goal Time Frame: 4-6 Weeks Goal 4:: I with HEP Goal Time Frame: 4-6 Weeks Rehabilitation Potential Physical Therapy Diagnosis: Pt has R knee pain, weakness, and limited ROM secondary to R TKA Rehabilitation Potential: Good Anticipated Interventions Patient/Client Instruction: Educate patient on: Condition and Plan of Care For the Purpose of:: To improve self management Therapeutic Exercise to Include: Strength training, Endurance training, Balance training, Flexibilty training, Passive ROM, Active ROM and Dynamic Lumbar Stabilization For the Purpose of:: To decrease pain, To increase ROM and To improve muscle performance and motor function Text: Thank you for the opportunity to evaluate your patient. For Medicare and Medicare HMO plans, please review the plan of care and approve it. It will need to be FAXED BACK to us at [phone] for Medicare purposes. For Medicare only, by signing this I certify the plan of care. Please let me know if there are questions or concerns regarding this plan of care. Physician Signature: Date:
--- NOTE | 2023-05-16 14:08 | HP.PTEVAL_ITS ---
Patient's Visit Information Visit Information Visit Information: ANA Lopez CASE is a 72 year old F referred to Physical Therapy by AIMEE GIBSON with a diagnosis of R TKA 02/12/22. Date of Evaluation: 03/04/23 Physical Therapist: Los Mejía, DPT, OCS, CSCS Visit Plan Frequency: 2x /Week Duration: 4-6 Weeks Plan: Attempt to get 12 more Rx's approved for strengthening, balance, and ROM Subjective Subjective: DOS: February 12 2022. Pt notes she had a R TKA performed at that time. Pt reports she had home health for 8 weeks after her surgery which was not very helpful. Pt notes her knee has been stiff and sore ever since her surgery. Pt reports she did come here for a couple months in the past, but notes she continues to struggle with stair negotiation and prolonged standing/walking. Pt notes she has to sit down if she is on her feet for greater than one hour. Pt is retired at this time. Pt reports no tingling or numbness in her feet other than the bottom of her feet secondary to neuropathy. Pt reports she continues to have sleep difficulty secondary to pain. Pt reports her major goal for coming back at this time is to return to being able to perform all her IADL's without limitation. 2/10 pain while sitting here in the clinic, 6/10 with prolonged standing (like when she is cooking in her kitchen) Pain R knee: Pain Intensity (Out of 10): 1 Pain Intensity Range: 6 Objective Objective: Neuro: B LE sensation is WNL to light touch. B patellar reflex= 1/3 Girth at joint line: L knee 37 cm, R knee 42 cm ROM: R knee 0-15-107, L knee 0-7-115 MMT: R knee flex= 31, ext= 22 #F: L knee flex= 35, ext= 40 #F Gait: Pt is able to ambulate 340 feet until feeling fatigued and needing to rest Balance/Special Test Scores Dizziness Score: 30 Lower Extremity Functional Score: 39 WOMAC Total Score: 35 WOMAC Percentatge: 63.5500 Goals Goal 1:: Decrease R knee pain x 50% to aid with sleep Goal Time Frame: 4-6 Weeks Goal 2:: Increase R knee ext ROM x 10 degrees to aid with IADL's Goal Time Frame: 4-6 Weeks Goal 3:: Pt will be able to ambulate greater than 1000 feet to aid with community ambulation Goal Time Frame: 4-6 Weeks Goal 4:: I with HEP Goal Time Frame: 4-6 Weeks Rehabilitation Potential Physical Therapy Diagnosis: Pt has R knee pain, weakness, and limited ROM secondary to R TKA Rehabilitation Potential: Good Anticipated Interventions Patient/Client Instruction: Educate patient on: Condition and Plan of Care For the Purpose of:: To improve self management Therapeutic Exercise to Include: Strength training, Endurance training, Balance training, Flexibilty training, Passive ROM, Active ROM and Dynamic Lumbar Stabilization For the Purpose of:: To decrease pain, To increase ROM and To improve muscle performance and motor function Text: Thank you for the opportunity to evaluate your patient. For Medicare and Medicare HMO plans, please review the plan of care and approve it. It will need to be FAXED BACK to us at [phone] for Medicare purposes. For Medicare only, by signing this I certify the plan of care. Please let me know if there are questions or concerns regarding this plan of care. Physician Signature: Date:___
--- NOTE | 2023-05-16 14:22 | HP.PTEVAL2 ---
Patient's Visit Information Visit Information Visit Information: ANA Lopez CASE is a 72 year old F referred to Physical Therapy by AIMEE GIBSON with a diagnosis of vertigo. Date of Evaluation: 05/16/23 Physical Therapist: Los Mejía, DANIELLET, OCS, CSCS Visit Plan Frequency: 1-2x /Week Duration: 2-4 Weeks Plan: 1-2x/week x 2-4 weeks as needed for positional treatments and exercises to tolerance and need. Subjective Subjective: HAving PT for R TKA currently. Has been getting dizzy for 3 weeks. Woke up in middle of night and went to bathroom and had to sit down quick as things were spinning, rested for 15 min then went back to bed and lied down and it started spinning again. That lasted for a while spinning every time she moved. Went to ER, 7 hours, diagnosed as vertigo. Wanted to see ENT adn neurosurgeon. Treated with meclizine which helped a little. Had manpreet x ray and EKG in hospital and bloodwork. Lately is sleeping in recliner to avoid lying. no spinning lately. Bent over to clean up floor and spun at that point. Would spin if she lies down. Went away when she rested. Feels normal when not spinning. No balance problems or falls. Objective Objective: Walks into PT with a limp on R due to TKA but I without AD. Trasnfer I. Steps with L only with rail. cervical AROM WFL and without pain but hesitant. UE AROM WFL. - R HD + L HD for 12 second up torsional nystagmus. Treeated with L modified caitlyn adn then did not wish to lie down again. Balance/Special Gait Scores Functional Gait Assessment Score: 23 % Disability: 23.3400 Goals Goal 1:: abolish vertigo 100% Goal Time Frame: 2-4 Weeks Goal 2:: Lie down at night and get to sleep without spinning Goal Time Frame: 2-4 Weeks Goal 3:: 100% activities including bending without issues Goal Time Frame: 2-4 Weeks Goal 4:: DHI 4 or less Goal Time Frame: 2-4 Weeks Rehabilitation Potential Physical Therapy Diagnosis: L PC BPPV casuing trouble lying down and danger with bending and spinning. Rehabilitation Potential: Good Anticipated Interventions Patient/Client Instruction: Educate patient on: Condition and Plan of Care For the Purpose of:: To increase tolerance to activity/condition/position For the Purpose of:: To increase tolerance to activity/condition/position text: Thank you for the opportunity to evaluate your patient. For Medicare and Medicare HMO plans, please review the plan of care and approve it. It will need to be FAXED BACK to us at [phone] for Medicare purposes. For Medicare only, by signing this I certify the plan of care. Please let me know if there are questions or concerns regarding this plan of care. Physician Signature: Date:
--- NOTE | 2023-06-02 12:00 | HP.PTDCSUM ---
Discharge Summary D/C summary: It has been my pleasure to treat ANA PAPPAS CASE referred by AIMEE GIBSON, with the diagnosis of R TKA 02/12/22 for a total of 23 visit(s). Discharge Date: Please see the following information for a summary of their discharge status. Subjective Subjective: I am a little sore from cleaning yesterday Pain R knee: Pain Intensity (Out of 10): 1 Overall Improvement % Improvement: 85 Objective Objective/Function: No increase in pain today with Rx. Goals Goal 1:: Decrease R knee pain x 50% to aid with sleep Goal Progress: Progressing Goal 2:: Increase R knee ext ROM x 10 degrees to aid with IADL's Goal Progress: Goal Met Goal 3:: Pt will be able to ambulate greater than 1000 feet to aid with community ambulation Goal Progress: Not Progressing Goal 4:: I with HEP Goal Progress: Progressing Plan Plan: Cont to focus on R LE strengthening at this time D/C Information d/c sentence: If there are questions or concerns regarding this patient's physical therapy, please feel free to call me at [phone]. Thank you for the referral of this patient. Sincerely, Los Mejía, DPT, OCS, CSCS Balance/Gait/Functional tests Balance/Special Test Scores Dizziness Score: 2 Lower Extremity Functional Score: 39 WOMAC Total Score: 35 WOMAC Percentage: 63.5500 Improvement % Improvement: 85
--- NOTE | 2023-06-09 13:50 | HP.PTREVAL ---
Re-Evaluation Intro: AIMEE GIBSON, It has been my pleasure to treat ANA PAPPAS CASE over the last 25 visits for R TKA 02/12/22. Please see the progress note below for an update on the physical therapy plan of care! Subjective Subjective: Pt reports pain ranges from 1-3/10 Objective Objective/Function: R knee pain ranges from 1-3/10 Pt is able to ambulate 680 feet until needing to sit and rest R knee ext ROM -5 degrees Pt is I with HEP Plan Plan Plan: Wait for Dr visit next week. Discharge or continue pending on visit. Balance/Gait/Functional tests Balance/Special Test Scores Dizziness Score: 2 Lower Extremity Functional Score: 38 WOMAC Total Score: 35 WOMAC Percentage: 63.5500 Goals Goals Goal 1:: Decrease R knee pain x 50% to aid with sleep Goal Time Frame: 4-6 Weeks Goal Progress: Goal Met Goal 2:: Increase R knee ext ROM x 10 degrees to aid with IADL's Goal Time Frame: 4-6 Weeks Goal Progress: Progressing Goal 3:: Pt will be able to ambulate greater than 1000 feet to aid with community ambulation Goal Time Frame: 4-6 Weeks Goal Progress: Progressing Goal 4:: I with HEP Goal Time Frame: 4-6 Weeks Goal Progress: Progressing Anticipated Interventions Anticipated Interventions Patient/Client Instruction: Educate patient on: Condition and Plan of Care For the Purpose of:: To improve self management Therapeutic Exercise to Include: Strength training, Endurance training, Balance training, Flexibilty training, Passive ROM, Active ROM and Dynamic Lumbar Stabilization For the Purpose of:: To decrease pain, To increase ROM and To improve muscle performance and motor function Re-Evaluation Ending Re-evaluation ending: Please do not hesitate to contact me at [phone] by phone or if you have questions or concerns regarding this new plan of care! Sincerely, Bharath Scott, PT, ATC
== END 2023-07-18 19:00 | disposition home or self-care (01) ==
LOC: PT 10:30
PROVIDERS: PCP Family Medicine
DX: M17.11 Unilateral primary osteoarthritis, right knee (principal); Z96.651 Presence of right artificial knee joint
CPT/HCPCS: 97110; 97161; 97164; 97530

== ENCOUNTER 2023-12-01 10:00 | Outpatient (RCR) | payer MEDICARE, MEDICAID, SELFPAY ==
[2023-12-01 10:40] VITALS: BP 128/65; PULSE 91; RESP 18; TEMP 35.8; BMI 32.8
--- NOTE | 2023-12-01 13:09 | HP.PCM_ITS ---
History of Present Illness Date of Service: 12/01/23 Chief Complaint: Left foot ulceration History of Wound: Patient is a 73-year-old female with PMHx of diabetes mellitus type 2, HTN, obesity who presents to the wound care center with new ulceration of the dorsal aspect of the left foot. Patient states that 3 weeks ago her foot began to swell and overnight developed a blister to the top of the left foot which subsequently ruptured and broke down into a ulceration. She did follow with her PCP Dr. Felder. Patient was prescribed antibiotics however she does not know what they were but did complete antibiotic course. Patient has been applying antibiotic ointment and Band-Aids to the top of the foot. Patient feels that her wound is not progressing and healing. Her most recent A1c on 11/23/2023 was 7.5%. Patient states that she was down around 6.4% however this has gone up since last year. Patient continues to wear shoe gear but states she goes barefoot inside of her house and refuses to wear shoe gear inside house. She denies constitutional symptoms. Denies further complaints. [facility] Medical History Diabetes type 2, controlled HTN (hypertension) Vertigo Home Medications atorvastatin 40 mg tablet 40 mg PO DAILY 12/01/23 [History Last Taken Unknown] canagliflozin 300 mg tablet (Invokana) 300 mg PO DAILY 12/01/23 [History Last Taken Unknown] carvedilol 6.25 mg tablet 6.25 mg PO BID 12/01/23 [History Last Taken Unknown] lisinopril 20 mg tablet 20 mg PO DAILY 12/01/23 [History Last Taken Unknown] metformin 500 mg tablet 500 mg PO BID 12/01/23 [History Last Taken Unknown] phentermine 37.5 mg tablet 37.5 mg PO DAILY 12/01/23 [History Last Taken Unknown] topiramate 25 mg tablet 25 mg PO BID 12/01/23 [History Last Taken Unknown] Allergy/AdvReac Type Severity Reaction Status Date / Time codeine AdvReac HYPERACTIVI Verified 05/24/23 20:24 TY hydrochlorothiazide AdvReac DRY MOUTH Verified 05/24/23 20:24 [From Hyzaar] losartan [From Hyzaar] AdvReac DRY MOUTH Verified 05/24/23 20:24 pioglitazone [From Actos] AdvReac WEIGHT GAIN Verified 05/24/23 20:25 ADVAIR DISKUS AdvReac Mild ELEVATED Uncoded 05/24/23 20:25 LIVER FUNCTION Social History Smoking Status: Never smoker ROS Constitutional Constitutional: Denies change in weight, chills, fatigue or fever(s) Eyes Eyes: Denies blurry vision, change in vision or double vision ENT HEENT: Denies dysphagia, nasal congestion or sore throat Cardiovascular Cardiovascular: Denies chest pain, claudication or palpitations Respiratory/Chest Respiratory/Chest: Denies cough, shortness of breath at rest or wheezing Gastrointestinal Gastrointestinal: Denies abdominal pain, constipation, diarrhea, nausea or vomiting Genitourinary Genitourinary: Denies dysuria, hematuria or urinary urgency Musculoskeletal Musculoskeletal: Denies joint pain, joint stiffness or joint swelling Integumentary Integumentary: Denies lesions, pruritus or rash Neurologic Neurologic: Denies dizziness, numbness or seizures Psychiatric Psychiatric: Denies depression Endocrine Endocrinology: Denies cold intolerance or heat intolerance Hematologic/Lymphatic Hematologic/Lymphatic: Denies easy bleeding or easy bruising Vital Signs Vital Signs Vital Signs: 12/01/23 10:40 Temperature 96.4 F L Temperature Source Temporal Pulse Rate 91 Respiratory Rate 18 Blood Pressure 128/65 H Blood Pressure Mean 86 Blood Pressure Source Monitor Blood Pressure Position Semi-Fowlers Blood Pressure Location Left Arm Weight Weight: 92.079 kg Body Mass Index (BMI) 32.8 Physical Exam Const alert, oriented x3 and no apparent distress General Appearance: cooperative HEENT normocephalic Eyes General Eye: normal appearance of both eyes Neck General: normal visual inspection Lymph Lymphatic: no lymphadenopathy noted and no lymphedema noted Resp normal respiratory effort Cardio regular rate and regular rhythm Extremity normal capillary refill, no calf tenderness and no pedal edema Extremity Narrative: Vascular: DP and PT pulses weakly palpable bilateral. CFT less than 5 seconds to digits of foot bilateral. Doppler demonstrates biphasic pedal pulses bilateral. Normal temperature gradient. Hair growth is diminished to the digits of the foot bilateral. Neurologic: Gross sensation intact. Light sensation intact. Protective sensation is diminished to bilateral foot consistent with diabetic peripheral polyneuropathy. Dermatological: Skin is mildly xerotic on the plantar aspect. Skin demonstrates normal turgor. Negative Stemmer sign second digit bilateral. Dorsal aspect of the left foot demonstrates full-thickness ulceration to the level of the subcutaneous tissue at the central aspect of the ulceration with surrounding fibrogranular tissue. There is some undermining of the wound from the 6:00 to 12 o'clock position. No exposure of tendinous structures. There is periwound rubor noted in addition to skin irritation secondary to application of Band-Aids/adhesive dressing. No erythema, no malodor, no purulent drainage, no lymphangitis/lymphedema, no palpable fluctuance/bogginess noted. Musculoskeletal: Muscle strength 5 of 5 age-appropriate bilateral. Decreased range of motion of the ankle joint dorsiflexion with the knee extended without pain or crepitus bilateral. Decreased range of motion of the first metatarsophalangeal joint in dorsiflexion without pain or crepitus bilateral. Skin no rashes or lesions noted, skin turgor normal and no jaundice Neuro moves all extremities Debridement Note Debridement Note Wound debrided: Dorsal left foot Laterality: Left Wound Grade/Stage: Kaur stage I Type of Debridement: Excisional debridement Anesthesia Used: 5% Lidocaine Gel Depth: Down to and including healthy tissue and in the subcutaneous layer Percentage of wound debrided: 100 Instrument Used: 5mm curette Tissue Removed: Fibrous, devitalized subcutaneous, biofilm, slough Severity: Fat Layer Exposed Amount of bleeding with debridement: Mild Bleeding Controlled with: Compression and gauze Patient tolerated procedure: Patient tolerated procedure well Post-Debridement Measurements and Additional Note: Post-Debridement Measurements/Treatment - Nurse 1 - General Ulcer Assessment Start: 12/01/23 10:39 Freq: Status: Active Protocol: [email or web address] Activity Type Activity Date Activity User E-sign Co-sign Detail Recorded Client Recorded Date Recorded By Document 12/01/23 10:40 Desktop 12/01/23 10:47 RB 12/01/23 10:40 - Today's Visit Information Type of service Initial Visit Arrival Mode Ambulatory Transfer Assistance None Patient Identification Verified (Name & Yes ) Patient Requires Transmission-Based No Precautions Height and Weight Height 5 ft 6 in Weight 92.079 kg Weight in Pounds 203.0 lbs Body Mass Index (BMI) 32.8 BMI Classification Obese BSA - Jasiel 2.01 Vital Signs Temperature (97.8 F-99.1 F) 96.4 F L Temperature Source Temporal Pulse Rate (60-100) 91 Pulse Location Monitor Respiratory Rate (12-18) 18 Respiratory rate source Observation Blood Pressure (90/60-120/80) 128/65 H Blood Pressure Mean 86 Source Monitor Position Semi-Fowlers Blood Pressure Location Left Arm History Since Last Visit- (Skip if this is Patient's initial visit) Have you changed medications since your No last visit? Any new allergies or adverse reactions No Had a fall/change in ADL's that may No increase risk of falls Signs or symptoms of abuse and/or No neglect since last visit Have you been in the hospital since your No last visit? Has dressing in place as prescribed Yes Has compression in place as prescribed No Has offloadiing in place as prescribed No Experienced any changes in pain level or No management Pain Scale: 0-10 Numeric Is Patient Pain Free? Yes Lower Extremity Assessment/ Foot Assessment/ Toe Nail Assessment Right -Posterior Tibial Palpable Yes -Posterior Tibial Doppler Multiphasic -Dorsalis Pedis Palpable Yes -Dorsalis Pedis Doppler Inaudible -Extremity Color Normal -Hair Growth on Legs Yes -Hair Growth on Toes Yes -Temperature of Extremity Cool -Capillary Refill Less than 3 Seconds -Dependent Rubor No -Blanched when Elevated No -Lipodermatosclerosis No -Thick No -Discolored No -Deformed No -Improper Length & Hygeine Yes Left -Posterior Tibial Palpable Yes -Posterior Tibial Doppler Multiphasic -Dorsalis Pedis Palpable Yes -Dorsalis Pedis Doppler Multiphasic -Extremity Color Red -Hair Growth on Legs Yes -Hair Growth on Toes No -Temperature of Extremity Cool -Capillary Refill Less than 3 Seconds -Dependent Rubor No -Blanched when Elevated No -Lipodermatosclerosis No -Other Deformity No -Prior Foot Ulcer No -Charcot Joint No -Prior Amputation No -Thick No -Discolored No -Deformed No -Improper Length & Hygeine Yes Neuropathy Assessment Feet - Top Side and Bottom <Entered> (a) Communication Assessment Preferred language Japanese Business Analyst Required No Able to Read Yes Able to Write Yes Communication Tools None Caregiver Communication Skills No Impairment Impairment Right Hearing Abillity Normal Left Hearing Abillity Normal Visual Assistive Devices Glasses Teaching Assessment Preferences Verbal,Written Barriers to Learning None Readiness To Learn Good Willingness to Engage in Self Management Med Activies Readiness to Engage in Self Management Med Activities Anxiety Level Calm Cooperation Cooperative Perception Coherent Interest in Health Problem Asks Questions Education Importance Acknowledges Need Does Patient Smoke tobacco or other No substances Smoking Status Never smoker Is Patient Diabetic No Functional Assessment Recent Decline in Ability to Perform Denies Any Declines Assistive Device With Patient No Culture/Taoism/Electro Mechanical Solar Technician Cultural/Taoism Needs that may affect No Treatment Plan Would you allow our [facility] presentation team member to No meet you for the purpose of spiritual/ emotional support? Electro Mechanical Solar Technician to contact place of mormonism No Teaching: Wound Center *Welcome to the Wound Center -Person Taught Patient -Teaching Method Discussion -Response to teaching Verbalize understanding (a) 1 - - plantar 2 - + dorsal WC - Nurse 1 - General Ulcer Measurement Start: 12/01/23 10:39 Freq: Status: Active Protocol: Activity Type Activity Date Activity User E-sign Co-sign Detail Recorded Client Recorded Date Recorded By Document 12/01/23 10:40 RB Desktop 12/01/23 10:47 RB 12/01/23 10:40 Wound Center Nurse 1 1. L foot dorsal -Combined with other wound No -Current Size (cm) - Length 2 -Current Size (cm) - Width 1.2 -Current Size (cm) - Depth 0.6 -Total Square Cm 2.4 -Photo Taken Yes -Tunneling No -Undermining/Tunneling Yes -Undermining/Tunneling Starts (O'clock 4 ) -Undermining/Tunneling Ends (O'clock) 8 -Maximum Distance (cm) 1.8 -Circular Undermining No -Exudate Amt Medium -Exudate Type Serosanguineous -Wound Margin Distinct, Outline Attached -Granulation Amt Medium (34-66%) -Granulation Quality [place] -Slough/Fibrin Yes -Necrosis Amt Medium (34-66%) -Necrotic Tissue Type Adherent Slough -Structure Exposed N/A -Texture (Stormy-wound Skin Appearance) Assessed -Moisture (Stormy-wound Skin Appearance) Assessed -Color (Stormy-wound Skin Appearance) Erythema -Temperature (Stormy-wound Skin No Abnormality Appearance) (Pt Warm) -Tenderness on Palpation (Stormy-wound No Skin Appearance) -Ulcer Cleansing Wound Cleanser -Foul Odor after Cleansing No -Anesthetic Used 5% Lidocaine Gel Lower Limb Edema Present Yes Right Calf (cm) 33 Right Ankle (cm) 21 Left Calf (cm) 34.3 Left Ankle (cm) 21.5 WC - Nurse 2 - General Ulcer CM Notes Start: 12/01/23 10:39 Freq: Status: Active Protocol: Activity Type Activity Date Activity User E-sign Co-sign Detail Recorded Client Recorded Date Recorded By Document 12/01/23 11:04 [facility] Desktop 12/01/23 11:20 [facility] 12/01/23 11:04 Wound Center Nurse 2 1. L foot dorsal -Time 11:04 -Correct Patient Yes -Correct Side, Site, Position Yes -Correct Procedure Yes -Procedure Performed Yes -Type of Procedure Debridement -Clinical Debridement Subcutaneous -Tissue Removed Subcutaneous -Post Debridement (cm) - Length 2.4 -Post Debridement (cm) - Width 1.4 -Post Debridement (cm) - Depth 1 -Total Square (Post) (cm) 3.36 -Area of Debridement (cm) - Length 2.4 -Area of Debridement (cm) - Width 1.4 -Total Square (Area) (cm) 3.36 -Tunneling No -Undermining/Tunneling Yes -Undermining/Tunneling Starts (O'clock 6 ) -Undermining/Tunneling Ends (O'clock) 12 -Maximum Distance (cm) 1.2 -Wound/Ulcer Outcome Not Healed -Ulcer Cleansing Rinsed/ Irrigated with Saline -Foul Odor after Cleansing No -Bioengineered Tissue No -Bleeding Controlled with Pressure -Treatment Response Procedure Tolerated Well -Debridement - Subq, 1st 20sq cm Yes Pain Scale: 0-10 Numeric Is Patient Pain Free? Yes Assessment/Plan Assessment/Plan (1) Non-pressure chronic ulcer of other part of right foot with fat layer exposed: CODE(S): L97.512 - Non-pressure chronic ulcer of other part of right foot with fat layer exposed (2) Type 2 diabetes mellitus without complications: CODE(S): E11.9 - Type 2 diabetes mellitus without complications (3) Type 2 diabetes mellitus with foot ulcer: CODE(S): E11.621 - Type 2 diabetes mellitus with foot ulcer; L97.509 - Non-pressure chronic ulcer of other part of unspecified foot with unspecified severity (4) Essential (primary) hypertension: CODE(S): I10 - Essential (primary) hypertension (5) Obesity, unspecified: CODE(S): E66.9 - Obesity, unspecified PLAN: Plan Patient seen and evaluated Ulceration has been present for 3 weeks treated at home by patient and by PCP prior to referral to wound care center. Dorsal aspect of the left foot demonstrates full-thickness ulceration to the level of the subcutaneous tissue at the central aspect of the ulceration with surrounding fibrogranular tissue. There is some undermining of the wound from the 6:00 to 12 o'clock position. No exposure of tendinous structures. No signs of infection Ulceration underwent debridement as noted in the clinical panel above. Ulceration postdebridement measures 2.4 cm x 1.4 cm x 1.0 cm. No signs of infection. Dakin's wet-to-dry dressing was applied to the foot. She was instructed to change dressing daily. She was then offloaded in surgical shoe to the left foot to prevent dorsal irritation secondary to shoe gear strapping/laces. Will consider application of advanced wound care product, EpiFix for application at next visit. Previous A1c 7.5% on 11/23/2023. Discussed continued glycemic control to bring A1c down with goal of 6.5% to optimize wound healing. Encourage lifestyle modification with daily exercise. Discussed proper diabetic diet today. Discussed adequate protein intake to continue to aid in wound healing. Gage supplementation was also recommended. Long discussion was had with patient about the necessity to not go barefoot about her house as she has lack of protective sensation secondary to diabetic peripheral polyneuropathy. Discussed that socks include barefoot. Encouraged shoe gear to be worn at all times. Supportive shoe gear was discussed with the patient today. Patient adamantly states I am not can wear shoes in my house, I go barefoot everywhere. Discussed continued progression of ulceration with possible infection given lack of sensation increases her risk of lower extremity amputation. Patient remains adamant stating will this is the first wound I have ever had on my feet, so I think I am doing okay. Given our discussion today it is obvious patient will not continue to follow recommended advice for shoe gear. Discussed signs and symptoms of infection. Discussed with the patient that if she begins to have increasing redness about the ulcerative site that moves up the foot/leg, purulent drainage from the wound site, increasing foul odor from the wound, or if she experiences fever greater than 101 degree accompanied by nausea, vomiting, chills that these are signs of a progressing infection and she should report to the ED to receive IV antibiotics and further evaluation. She voices understanding of this today. The following work up and care recommendations were made: Dressing: Dakin's wet-to-dry. Change dressing daily. Wash: Soap and water Tissue growth optimization: Ashley's Offload: Surgical shoe to left foot to offload preventing dorsal irritation from shoe gear Vascular: Weakly DP and PT pulses, biphasic Doppler pulses. Edema: Currently no edema. Continue to elevate lower extremities at times of rest Infection: No signs of infection Pain: May take [id number] Tylenol for discomfort Host factors: DM type II with peripheral polyneuropathy, noncompliance in shoe gear/barefoot status, HTN, obesity I answered all the patient's questions. To return to the wound healing center in 1 week or call sooner if the patient has any questions or concerns.
== END 2023-12-06 23:59 | disposition home or self-care (01) ==
LOC: WC 10:00
PROVIDERS: PCP Family Medicine; Referring Provider Family Medicine; Visit Provider Student in an Organized Health Care Education/Training Program
DX: E11.621 Type 2 diabetes mellitus with foot ulcer (principal); L97.512 Non-pressure chronic ulcer of other part of right foot with fat layer exposed; L97.522 Non-pressure chronic ulcer of other part of left foot with fat layer exposed; E11.42 Type 2 diabetes mellitus with diabetic polyneuropathy; I10 Essential (primary) hypertension; E66.9 Obesity, unspecified; Z79.84 Long term (current) use of oral hypoglycemic drugs
CPT/HCPCS: 11042; 99214; G0463

== ENCOUNTER 2024-01-05 11:15 | Outpatient (RCR) | payer MEDICARE, MEDICAID, SELFPAY ==
[2023-12-07 00:57] VITALS: BP 128/65; PULSE 91; RESP 18; TEMP 35.8; BMI 32.8
[2023-12-08 11:06] VITALS: BP 116/61; PULSE 105; RESP 18; TEMP 36.6; BMI 32.8
--- NOTE | 2023-12-08 12:29 | PN.PCM_ITS ---
History of Present Illness Date of Service: 12/08/23 Chief Complaint: Left foot ulceration History of Wound: Patient is a 73-year-old female with PMHx of diabetes mellitus type 2, HTN, obesity who presents to the wound care center with new ulceration of the dorsal aspect of the left foot. Patient states that 3 weeks ago her foot began to swell and overnight developed a blister to the top of the left foot which subsequently ruptured and broke down into a ulceration. She did follow with her PCP Dr. Felder. Patient was prescribed antibiotics however she does not know what they were but did complete antibiotic course. Patient has been applying antibiotic ointment and Band-Aids to the top of the foot. Patient feels that her wound is not progressing and healing. Her most recent A1c on 11/23/2023 was 7.5%. Patient states that she was down around 6.4% however this has gone up since last year. Patient continues to wear shoe gear but states she goes barefoot inside of her house and refuses to wear shoe gear inside house. She denies constitutional symptoms. Denies further complaints. Objective Data Objective Data Vital Signs: Vital Signs Temp Pulse Resp BP O2 Del Method 97.8 F 105 H 18 116/61 Room Air 12/08/23 11:06 12/08/23 11:06 12/08/23 11:06 12/08/23 11:06 12/08/23 11:06 Oxygen Delivery Method Room Air Weight: 92.079 kg Body Mass Index (BMI) 32.8 Physical Exam Const alert, oriented x3 and no apparent distress General Appearance: cooperative HEENT normocephalic Eyes General Eye: normal appearance of both eyes Neck General: normal visual inspection Lymph Lymphatic: no lymphadenopathy noted and no lymphedema noted Resp normal respiratory effort Cardio regular rate and regular rhythm Extremity normal capillary refill, no calf tenderness and no pedal edema Extremity Narrative: Vascular: DP and PT pulses weakly palpable bilateral. CFT less than 5 seconds to digits of foot bilateral. Doppler demonstrates biphasic pedal pulses bilateral. Normal temperature gradient. Hair growth is diminished to the digits of the foot bilateral. Neurologic: Gross sensation intact. Light sensation intact. Protective sensation is diminished to bilateral foot consistent with diabetic peripheral polyneuropathy. Dermatological: Skin is mildly xerotic on the plantar aspect. Skin demonstrates normal turgor. Negative Stemmer sign second digit bilateral. Dorsal aspect of the left foot demonstrates full-thickness ulceration to the level of the subcutaneous tissue at the central aspect of the ulceration with surrounding fibrogranular tissue. There is some undermining of the wound from the 6:00 to 12 o'clock position. No exposure of tendinous structures. There is periwound rubor noted in addition to skin irritation secondary to application of Band- Aids/adhesive dressing. No erythema, no malodor, no purulent drainage, no lymphangitis/lymphedema, no palpable fluctuance/bogginess noted. Musculoskeletal: Muscle strength 5 of 5 age-appropriate bilateral. Decreased ra nge of motion of the ankle joint dorsiflexion with the knee extended without pain or crepitus bilateral. Decreased range of motion of the first metatarsophalangeal joint in dorsiflexion without pain or crepitus bilateral. Skin no rashes or lesions noted, skin turgor normal and no jaundice Neuro moves all extremities Debridement Note Debridement Note Wound debrided: Left dorsal foot Laterality: Left Wound Grade/Stage: Kaur stage I Type of Debridement: Excisional debridement Anesthesia Used: 5% Lidocaine Gel Depth: Down to and including healthy tissue and in the subcutaneous layer Percentage of wound debrided: 100 Instrument Used: 5mm curette Tissue Removed: Fibrous, devitalized subcutaneous, biofilm, slough Severity: Fat Layer Exposed Amount of bleeding with debridement: Mild Bleeding Controlled with: Compression and gauze Patient tolerated procedure: Patient tolerated procedure well Post-Debridement Measurements and Additional Note: Post-Debridement Measurements/Treatment - Nurse 1 - General Ulcer Assessment Start: 12/08/23 11:04 Freq: Status: Active Protocol: MACIE Activity Type Activity Date Activity User E-sign Co-sign Detail Recorded Client Recorded Date Recorded By Document 12/08/23 11:06 KW Desktop 12/08/23 11:11 KW 12/08/23 11:06 - Today's Visit Information Type of service Follow-up Visit (Physician/ACCOUNTING REPRESENTATIVE ) Arrival Mode Ambulatory Patient Identification Verified (Name & Yes ) Height and Weight Body Mass Index (BMI) 32.8 BMI Classification Obese Vital Signs Temperature (97.8 F-99.1 F) 97.8 F Temperature Source Temporal Pulse Rate (60-100) 105 H Pulse Location Monitor Respiratory Rate (12-18) 18 Respiratory rate source Observation Oxygen Delivery Method Room Air Blood Pressure (90/60-120/80) 116/61 Blood Pressure Mean (mm Hg) 79 Source Monitor Position Semi-Fowlers Blood Pressure Location Left Arm History Since Last Visit- (Skip if this is Patient's initial visit) Have you changed medications since your No last visit? Any new allergies or adverse reactions No Had a fall/change in ADL's that may No increase risk of falls Signs or symptoms of abuse and/or No neglect since last visit Have you been in the hospital since your No last visit? Has dressing in place as prescribed Yes Has compression in place as prescribed Yes Has offloadiing in place as prescribed Yes Experienced any changes in pain level or No management Left Footwear Surgical Shoe with pressure relief insole Right Footwear Regular Shoe Pain Scale: 0-10 Numeric Is Patient Pain Free? Yes - Nurse 1 - General Ulcer Measurement Start: 12/08/23 11:04 Freq: Status: Active Protocol: Activity Type Activity Date Activity User E-sign Co-sign Detail Recorded Client Recorded Date Recorded By Document 12/08/23 11:06 [employer] 12/08/23 11:11 12/08/23 11:06 Wound Center Nurse 1 1. L foot dorsal -Current Size (cm) - Length 1.5 -Current Size (cm) - Width 1 -Current Size (cm) - Depth 0.3 -Total Square Cm 1.5 -Exudate Amt Small -Exudate Type Serosanguineous -Wound Margin Distinct, Outline Attached -Granulation Amt Large (67-100%) -Granulation Quality Red -Necrosis Amt Small (1-33%) -Necrotic Tissue Type Adherent Slough -Texture (Stormy-wound Skin Appearance) Assessed -Moisture (Stormy-wound Skin Appearance) Assessed -Color (Stormy-wound Skin Appearance) Assessed, Erythema -Temperature (Stormy-wound Skin No Abnormality Appearance) (Pt Warm) -Ulcer Cleansing Rinsed/ Irrigated with Saline -Foul Odor after Cleansing No -Anesthetic Used 5% Lidocaine Gel - Nurse 2 - General Ulcer CM Notes Start: 12/08/23 11:04 Freq: Status: Active Protocol: Activity Type Activity Date Activity User E-sign Co-sign Detail Recorded Client Recorded Date Recorded By Document 12/08/23 11:34 [facility] [employer] 12/08/23 11:49 [facility] 12/08/23 11:34 Wound Center Nurse 2 -Time 11:34 -Correct Patient Yes -Correct Side, Site, Position Yes -Correct Procedure Yes -Procedure Performed Yes -Type of Procedure Debridement -Clinical Debridement Subcutaneous -Tissue Removed Subcutaneous -Post Debridement (cm) - Length 2 -Post Debridement (cm) - Width 1.1 -Post Debridement (cm) - Depth 0.6 -Total Square (Post) (cm) 2.2 -Area of Debridement (cm) - Length 2 -Area of Debridement (cm) - Width 1.1 -Total Square (Area) (cm) 2.2 -Tunneling No -Undermining/Tunneling Yes -Undermining/Tunneling Starts (O'clock 12 ) -Undermining/Tunneling Ends (O'clock) 12 -Maximum Distance (cm) 1 -Undermining/Tunneling Starts #2 (O' 9 clock) -Undermining/Tunneling Ends #2 (O' 9 clock) -Maximum Distance #2 (cm) 0.5 -Circular Undermining No -Wound/Ulcer Outcome Not Healed -Ulcer Cleansing Rinsed/ Irrigated with Saline -Foul Odor after Cleansing No -Bioengineered Tissue No -Bleeding Controlled with Pressure -Treatment Response Procedure Tolerated Well -Offloading Yes -Type of Offloading Surgical Shoe -Debridement - Subq, 1st 20sq cm Yes Pain Scale: 0-10 Numeric Is Patient Pain Free? Yes - Nurse 3 - General Ulcer D/C NN Start: 12/08/23 11:04 Freq: Status: Active Protocol: Activity Type Activity Date Activity User E-sign Co-sign Detail Recorded Client Recorded Date Recorded By Document 12/08/23 11:54 KW Desktop 12/08/23 11:55 KW 12/08/23 11:54 Wound Care Center Nurse 3 1. L foot dorsal -Other Dressing gauze moistened with dakins -Primary Dressing Covered/Secured with Dry Gauze & Roll Gauze, Secured with Tape Pain Scale: 0-10 Numeric Is Patient Pain Free? 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 layer exposed: CODE(S): L97.512 - Non-pressure chronic ulcer of other part of right foot with fat layer exposed (2) Type 2 diabetes mellitus without complications: CODE(S): E11.9 - Type 2 diabetes mellitus without complications (3) Type 2 diabetes mellitus with foot ulcer: CODE(S): E11.621 - Type 2 diabetes mellitus with foot ulcer; L97.509 - Non-pressure chronic ulcer of other part of unspecified foot with unspecified severity (4) Essential (primary) hypertension: CODE(S): I10 - Essential (primary) hypertension (5) Obesity, unspecified: CODE(S): E66.9 - Obesity, unspecified PLAN: Plan Patient seen and evaluated Ulceration has been present for 3 weeks treated at home by patient and by PCP prior to referral to wound care center. Dorsal aspect of the left foot demonstrates full-thickness ulceration to the level of the subcutaneous tissue at the central aspect of the ulceration with surrounding fibrogranular tissue. There is some undermining of the wound from the 6:00 to 12 o'clock position. No exposure of tendinous structures. No signs of infection Ulceration underwent debridement as noted in the clinical panel above. Ulceration postdebridement measures 1.8 cm x 1.1 cm x 0.6 cm. No signs of infection. Dakin's wet-to-dry dressing was applied to the foot. She was instructed to change dressing daily. She was then offloaded in surgical shoe to the left foot to prevent dorsal irritation secondary to shoe gear strapping/laces. There is reduction in ulcerative size versus previous visit. Applied for advanced wound care product, EpiFix for application, awaiting insurance approval. Will consider collagen based product at next visit. Previous A1c 7.5% on 11/23/2023. Discussed continued glycemic control to bring A1c down with goal of 6.5% to optimize wound healing. Encourage lifestyle modification with daily exercise. Discussed proper diabetic diet today. Discussed adequate protein intake to continue to aid in wound healing. Gage supplementation was also recommended. Long discussion was had with patient on 12/01/23 about the necessity to not go barefoot about her house as she has lack of protective sensation secondary to diabetic peripheral polyneuropathy. Discussed that socks include barefoot. Encouraged shoe gear to be worn at all times. Supportive shoe gear was discussed with the patient today. Patient adamantly states I am not can wear shoes in my house, I go barefoot everywhere. Discussed continued progression of ulceration with possible infection given lack of sensation increases her risk of lower extremity amputation. Patient remains adamant stating will this is the first wound I have ever had on my feet, so I think I am doing okay. Given our discussion today it is obvious patient will not continue to follow recommended advice for shoe gear. Discussed signs and symptoms of infection. Discussed with the patient that if she begins to have increasing redness about the ulcerative site that moves up the foot/leg, purulent drainage from the wound site, increasing foul odor from the wound, or if she experiences fever greater than 101 degree accompanied by nausea, vomiting, chills that these are signs of a progressing infection and she should report to the ED to receive IV antibiotics and further evaluation. She voices understanding of this today. The following work up and care recommendations were made: Dressing: Dakin's wet-to-dry. Change dressing daily. Wash: Soap and water Tissue growth optimization: Dakin's Offload: Surgical shoe to left foot to offload preventing dorsal irritation from shoe gear Vascular: Weakly DP and PT pulses, biphasic Doppler pulses. Edema: Currently no edema. Continue to elevate lower extremities at times of rest Infection: No signs of infection Pain: May take [id number] Tylenol for discomfort Host factors: DM type II with peripheral polyneuropathy, noncompliance in shoe gear/barefoot status, HTN, obesity I answered all the patient's questions. To return to the wound healing center in 1 week or call sooner if the patient has any questions or concerns.
[2023-12-15 10:54] VITALS: BP 110/60; PULSE 102; RESP 20; TEMP 36.7; BMI 32.8
--- NOTE | 2023-12-15 12:17 | PN.PCM_ITS ---
History of Present Illness Date of Service: 12/15/23 Chief Complaint: Left foot ulceration History of Wound: Patient is a 73-year-old female with PMHx of diabetes mellitus type 2, HTN, obesity who presents to the wound care center with new ulceration of the dorsal aspect of the left foot. Patient states that 3 weeks ago her foot began to swell and overnight developed a blister to the top of the left foot which subsequently ruptured and broke down into a ulceration. She did follow with her PCP Dr. Felder. Patient was prescribed antibiotics however she does not know what they were but did complete antibiotic course. Patient has been applying antibiotic ointment and Band-Aids to the top of the foot. Patient feels that her wound is not progressing and healing. Her most recent A1c on 11/23/2023 was 7.5%. Patient states that she was down around 6.4% however this has gone up since last year. Patient continues to wear shoe gear but states she goes barefoot inside of her house and refuses to wear shoe gear inside house. She denies constitutional symptoms. Denies further complaints. Subjective Subjective This is a 73-year-old female who presents to the wound care center today for a follow-up of a left dorsal foot ulceration. She states that she has been continuing to change the dressing daily with Dakin's. States that she can see that the wound is improving. Denies constitutional symptoms. Denies further complaints. Objective Data Objective Data Vital Signs: Vital Signs Temp Pulse Resp BP O2 Del Method 98.1 F 102 H 20 H 110/60 Room Air 12/15/23 10:54 12/15/23 10:54 12/15/23 10:54 12/15/23 10:54 12/08/23 11:06 Oxygen Delivery Method Room Air Weight: 92.079 kg Body Mass Index (BMI) 32.8 Physical Exam Const alert, oriented x3 and no apparent distress General Appearance: cooperative HEENT normocephalic Eyes General Eye: normal appearance of both eyes Neck General: normal visual inspection Lymph Lymphatic: no lymphadenopathy noted and no lymphedema noted Resp normal respiratory effort Cardio regular rate and regular rhythm Extremity normal capillary refill, no calf tenderness and no pedal edema Extremity Narrative: Vascular: DP and PT pulses weakly palpable bilateral. CFT less than 5 seconds to digits of foot bilateral. Doppler demonstrates biphasic pedal pulses bilateral. Normal temperature gradient. Hair growth is diminished to the digits of the foot bilateral. Neurologic: Gross sensation intact. Light sensation intact. Protective sensation is diminished to bilateral foot consistent with diabetic peripheral polyneuropathy. Dermatological: Skin is mildly xerotic on the plantar aspect. Skin demonstrates normal turgor. Negative Stemmer sign second digit bilateral. Dorsal aspect of the left foot demonstrates full-thickness ulceration to the level of the subcutaneous tissue at the central aspect of the ulceration with surrounding fibrogranular tissue. There is some undermining of the wound from the 6:00 to 12 o'clock position. No exposure of tendinous structures. There is periwound rubor noted in addition to skin irritation secondary to application of Band-A ids/adhesive dressing. No erythema, no malodor, no purulent drainage, no lymphangitis/lymphedema, no palpable fluctuance/bogginess noted. Musculoskeletal: Muscle strength 5 of 5 age-appropriate bilateral. Decreased range of motion of the ankle joint dorsiflexion with the knee extended without pain or crepitus bilateral. Decreased range of motion of the first metatarsophalangeal joint in dorsiflexion without pain or crepitus bilateral. Skin no rashes or lesions noted, skin turgor normal and no jaundice Neuro moves all extremities Debridement Note Debridement Note Wound debrided: Left dorsal foot Laterality: Left Wound Grade/Stage: Kaur stage I Type of Debridement: Excisional debridement Anesthesia Used: 5% Lidocaine Gel and - (8 cc 1% lidocaine with epinephrine) Depth: Down to and including healthy tissue and in the subcutaneous layer Percentage of wound debrided: 100 Instrument Used: 5mm curette Tissue Removed: Fibrous, devitalized subcutaneous, biofilm, slough Severity: Fat Layer Exposed Amount of bleeding with debridement: Mild Bleeding Controlled with: Compression and gauze Patient tolerated procedure: Patient tolerated procedure well Post-Debridement Measurements and Additional Note: Post-Debridement Measurements/Treatment MADELINE - Nurse 1 - General Ulcer Assessment Start: 12/08/23 11:04 Freq: Status: Active Protocol: MACIE Activity Type Activity Date Activity User E-sign Co-sign Detail Recorded Client Recorded Date Recorded By Document 12/08/23 11:06 KW Desktop 12/08/23 11:11 KW Document 12/15/23 10:54 DL Desktop 12/15/23 10:57 DL 12/08/23 12/15/23 11:06 10:54 - Today's Visit Information Type of service Follow-up Visit Follow-up Visit (Physician/FOUNDRY TECHNICIAN (Physician/FOUNDRY TECHNICIAN ) ) Arrival Mode Ambulatory Ambulatory Transfer Assistance None Patient Identification Verified (Name & Yes Yes ) Patient Requires Transmission-Based No Precautions Height and Weight Body Mass Index (BMI) 32.8 32.8 BMI Classification Obese Obese Vital Signs Temperature (97.8 F-99.1 F) 97.8 F 98.1 F Temperature Source Temporal Temporal Pulse Rate (60-100) 105 H 102 H Pulse Location Monitor Monitor Respiratory Rate (12-18) 18 20 H Respiratory rate source Observation Observation Oxygen Delivery Method Room Air Blood Pressure (90/60-120/80) 116/61 110/60 Blood Pressure Mean (mm Hg) 79 76 Source Monitor Monitor Position Semi-Fowlers Blood Pressure Location Left Arm History Since Last Visit- (Skip if this is Patient's initial visit) Have you changed medications since your No No last visit? Any new allergies or adverse reactions No No Had a fall/change in ADL's that may No No increase risk of falls Signs or symptoms of abuse and/or No No neglect since last visit Have you been in the hospital since your No No last visit? Has dressing in place as prescribed Yes Yes Has compression in place as prescribed Yes Yes Has offloadiing in place as prescribed Yes Yes Experienced any changes in pain level or No management Left Footwear Surgical Shoe Surgical Shoe with pressure with pressure relief insole relief insole Right Footwear Regular Shoe Pain Scale: 0-10 Numeric Is Patient Pain Free? Yes Yes - Nurse 1 - General Ulcer Measurement Start: 12/08/23 11:04 Freq: Status: Active Protocol: Activity Type Activity Date Activity User E-sign Co-sign Detail Recorded Client Recorded Date Recorded By Document 12/08/23 11:06 KW Desktop 12/08/23 11:11 KW Document 12/15/23 10:54 DL Desktop 12/15/23 10:57 DL 12/08/23 12/15/23 11:06 10:54 Wound Center Nurse 1 1. L foot dorsal -Current Size (cm) - Length 1.5 1.6 -Current Size (cm) - Width 1 1.1 -Current Size (cm) - Depth 0.3 0.6 -Total Square Cm 1.5 1.76 -Exudate Amt Small Medium -Exudate Type Serosanguineous Serosanguineous -Wound Margin Distinct, Distinct, Outline Outline Attached Attached -Granulation Amt Large (67-100%) Large (67-100%) -Granulation Quality Red Red -Necrosis Amt Small (1-33%) Small (1-33%) -Necrotic Tissue Type Adherent Slough Adherent Slough -Structure Exposed N/A -Texture (Stormy-wound Skin Appearance) Assessed Scarring -Moisture (Stormy-wound Skin Appearance) Assessed No Abnormality -Color (Stormy-wound Skin Appearance) Assessed, Erythema Erythema -Temperature (Stormy-wound Skin No Abnormality No Abnormality Appearance) (Pt Warm) (Pt Warm) -Tenderness on Palpation (Stormy-wound No Skin Appearance) -Ulcer Cleansing Rinsed/ Soap and Water Irrigated with Saline -Foul Odor after Cleansing No No -Anesthetic Used 5% Lidocaine 5% Lidocaine Gel Gel WC - Nurse 2 - General Ulcer CM Notes Start: 12/08/23 11:04 Freq: Status: Active Protocol: Activity Type Activity Date Activity User E-sign Co-sign Detail Recorded Client Recorded Date Recorded By Document 12/08/23 11:34 [facility] Desktop 12/08/23 11:49 [facility] Document 12/15/23 11:06 Desktop 12/15/23 11:23 DS 12/08/23 12/15/23 11:34 11:06 Wound Center Nurse 2 1. L foot dorsal -Time 11:34 11:07 -Correct Patient Yes Yes -Correct Side, Site, Position Yes Yes -Correct Procedure Yes Yes -Procedure Performed Yes Yes -Type of Procedure Debridement Debridement -Clinical Debridement Subcutaneous Subcutaneous -Tissue Removed Subcutaneous Subcutaneous -Post Debridement (cm) - Length 2 1.6 -Post Debridement (cm) - Width 1.1 1.3 -Post Debridement (cm) - Depth 0.6 0.6 -Total Square (Post) (cm) 2.2 2.08 -Area of Debridement (cm) - Length 2 1.6 -Area of Debridement (cm) - Width 1.1 1.3 -Total Square (Area) (cm) 2.2 2.08 -Tunneling No Yes -Tunneling Position (O'clock) 12 -Tunneling Distance (cm) 0.4 -Undermining/Tunneling Yes No -Undermining/Tunneling Starts (O'clock 12 ) -Undermining/Tunneling Ends (O'clock) 12 -Maximum Distance (cm) 1 -Undermining/Tunneling Starts #2 (O' 9 clock) -Undermining/Tunneling Ends #2 (O' 9 clock) -Maximum Distance #2 (cm) 0.5 -Circular Undermining No No -Wound/Ulcer Outcome Not Healed Not Healed -Ulcer Cleansing Rinsed/ Rinsed/ Irrigated with Irrigated with Saline Saline -Foul Odor after Cleansing No -Bioengineered Tissue No -Injectable Lidocaine w/ Epi (%) 1 -Injectable Lidocaine w/ Epi (mls) 10 -Bleeding Controlled with Pressure Pressure -Treatment Response Procedure Procedure Tolerated Well Tolerated Well -Offloading Yes Yes -Type of Offloading Surgical Shoe Surgical Shoe -Debridement - Subq, 1st 20sq cm Yes Yes Pain Scale: 0-10 Numeric Is Patient Pain Free? Yes Yes - Nurse 3 - General Ulcer D/C NN Start: 12/08/23 11:04 Freq: Status: Active Protocol: Activity Type Activity Date Activity User E-sign Co-sign Detail Recorded Client Recorded Date Recorded By Document 12/08/23 11:54 KW Desktop 12/08/23 11:55 KW 12/08/23 11:54 Wound Care Center Nurse 3 1. L foot dorsal -Other Dressing gauze moistened with dakins -Primary Dressing Covered/Secured with Dry Gauze & Roll Gauze, Secured with Tape Pain Scale: 0-10 Numeric Is Patient Pain Free? Yes WC - Visit Discharge Discharge Condition Stable Ambulatory Status Ambulatory Transportation Private Auto Medication Reconcilliation completed & No provided to patient/care provider Clinical Summary of Care Provided Yes Assessment/Plan Assessment/Plan (1) Non-pressure chronic ulcer of other part of left foot with fat layer exposed: CODE(S): L97.522 - Non-pressure chronic ulcer of other part of left foot with fat layer exposed (2) Type 2 diabetes mellitus without complications: CODE(S): E11.9 - Type 2 diabetes mellitus without complications (3) Type 2 diabetes mellitus with foot ulcer: CODE(S): E11.621 - Type 2 diabetes mellitus with foot ulcer; L97.509 - Non-pressure chronic ulcer of other part of unspecified foot with unspecified severity (4) Essential (primary) hypertension: CODE(S): I10 - Essential (primary) hypertension (5) Obesity, unspecified: CODE(S): E66.9 - Obesity, unspecified PLAN: Plan Patient seen and evaluated Ulceration has been present for 3 weeks treated at home by patient and by PCP prior to referral to wound care center. Dorsal aspect of the left foot demonstrates full-thickness ulceration to the level of the subcutaneous tissue at the central aspect of the ulceration with surrounding fibrogranular tissue. There is some undermining of the wound from the 6:00 to 12 o'clock position, which is improving. No exposure of tendinous structures. No signs of infection Ulceration underwent debridement as noted in the clinical panel above. Ulceration postdebridement measures 1.6 cm x 1.3 cm x 0.6 cm. No signs of infection. Dakin's wet-to-dry dressing was applied to the foot. She was instructed to change dressing daily. She was then offloaded in surgical shoe to the left foot to prevent dorsal irritation secondary to shoe gear strapping/laces. There is continued reduction in ulcerative size versus previous visit. Ulceration is granulating in well at previous areas of undermining. Applied for advanced wound care product, EpiFix for application, awaiting insurance approval. Will consider collagen based product at next visit. Previous A1c 7.5% on 11/23/2023. Discussed continued glycemic control to bring A1c down with goal of 6.5% to optimize wound healing. Encourage lifestyle mo dification with daily exercise. Discussed proper diabetic diet today. Discussed adequate protein intake to continue to aid in wound healing. Gage supplementation was also recommended. Long discussion was had with patient on 12/01/23 about the necessity to not go barefoot about her house as she has lack of protective sensation secondary to diabetic peripheral polyneuropathy. Discussed that socks include barefoot. Encouraged shoe gear to be worn at all times. Supportive shoe gear was discussed with the patient today. Patient adamantly states I am not can wear shoes in my house, I go barefoot everywhere. Discussed continued progression of ulceration with possible infection given lack of sensation increases her risk of lower extremity amputation. Patient remains adamant stating will this is the first wound I have ever had on my feet, so I think I am doing okay. Given our discussion today it is obvious patient will not continue to follow recommended advice for shoe gear. Discussed signs and symptoms of infection. Discussed with the patient that if she begins to have increasing redness about the ulcerative site that moves up the foot/leg, purulent drainage from the wound site, increasing foul odor from the wound, or if she experiences fever greater than 101 degree accompanied by nausea, vomiting, chills that these are signs of a progressing infection and she should report to the ED to receive IV antibiotics and further evaluation. She voices understanding of this today. The following work up and care recommendations were made: Dressing: Dakin's wet-to-dry. Change dressing daily. Wash: Soap and water Tissue growth optimization: Dakin's Offload: Surgical shoe to left foot to offload preventing dorsal irritation from shoe gear Vascular: Weakly DP and PT pulses, biphasic Doppler pulses. Edema: Currently no edema. Continue to elevate lower extremities at times of rest Infection: No signs of infection Pain: May take [id number] Tylenol for discomfort Host factors: DM type II with peripheral polyneuropathy, noncompliance in shoe gear/barefoot status, HTN, obesity I answered all the patient's questions. To return to the wound healing center in 1 week or call sooner if the patient has any questions or concerns.
[2023-12-22 11:06] VITALS: BP 125/78; PULSE 98; RESP 20; TEMP 36.6; BMI 32.8
--- NOTE | 2023-12-22 13:12 | PCM.WC.PN ---
History of Present Illness Date of Service: 12/22/23 Chief Complaint: Left foot ulceration History of Wound: Patient is a 73-year-old female with PMHx of diabetes mellitus type 2, HTN, obesity who presents to the wound care center with new ulceration of the dorsal aspect of the left foot. Patient states that 3 weeks ago her foot began to swell and overnight developed a blister to the top of the left foot which subsequently ruptured and broke down into a ulceration. She did follow with her PCP Dr. Felder. Patient was prescribed antibiotics however she does not know what they were but did complete antibiotic course. Patient has been applying antibiotic ointment and Band-Aids to the top of the foot. Patient feels that her wound is not progressing and healing. Her most recent A1c on 11/23/2023 was 7.5%. Patient states that she was down around 6.4% however this has gone up since last year. Patient continues to wear shoe gear but states she goes barefoot inside of her house and refuses to wear shoe gear inside house. She denies constitutional symptoms. Denies further complaints. Subjective Subjective This is a 73-year-old female who presents to the wound care center today for a follow-up of a left dorsal foot ulceration. She states that she has been continuing to change the dressing daily with Dakin's. States that she can see that the wound continuing to improve. Denies constitutional symptoms. Denies further complaints. Objective Data Objective Data Vital Signs: Vital Signs Temp Pulse Resp BP O2 Del Method 98 F 98 20 H 125/78 H Room Air 12/22/23 11:06 12/22/23 11:06 12/22/23 11:06 12/22/23 11:06 12/08/23 11:06 Oxygen Delivery Method Room Air Weight: 92.079 kg Body Mass Index (BMI) 32.8 Physical Exam Const alert, oriented x3 and no apparent distress General Appearance: cooperative HEENT normocephalic Eyes General Eye: normal appearance of both eyes Neck General: normal visual inspection Lymph Lymphatic: no lymphadenopathy noted and no lymphedema noted Resp normal respiratory effort Cardio regular rate and regular rhythm Extremity normal capillary refill, no calf tenderness and no pedal edema Extremity Narrative: Vascular: DP and PT pulses weakly palpable bilateral. CFT less than 5 seconds to digits of foot bilateral. Doppler demonstrates biphasic pedal pulses bilateral. Normal temperature gradient. Hair growth is diminished to the digits of the foot bilateral. Neurologic: Gross sensation intact. Light sensation intact. Protective sensation is diminished to bilateral foot consistent with diabetic peripheral polyneuropathy. Dermatological: Skin is mildly xerotic on the plantar aspect. Skin demonstrates normal turgor. Negative Stemmer sign second digit bilateral. Dorsal aspect of the left foot demonstrates full-thickness ulceration to the level of the subcutaneous tissue at the central aspect of the ulceration with surrounding fibrogranular tissue. There is some undermining of the wound from the 6:00 to 12 o'clock position. No exposure of tendinous structures. There is periwound rubor noted in addition to skin irritation secondary to application of Band-Aids/adhesive dressing. No erythema, no malodor, no purulent drainage, no lymphangitis/lymphedema, no palpable fluctuance/bogginess noted. Musculoskeletal: Muscle strength 5 of 5 age-appropriate bilateral. Decreased range of motion of the ankle joint dorsiflexion with the knee extended without pain or crepitus bilateral. Decreased range of motion of the first metatarsophalangeal joint in dorsiflexion without pain or crepitus bilateral. Skin no rashes or lesions noted, skin turgor normal and no jaundice Neuro moves all extremities Debridement Note Debridement Note Wound debrided: Left dorsal foot Laterality: Left Wound Grade/Stage: Kaur stage I Type of Debridement: Excisional debridement Anesthesia Used: 5% Lidocaine Gel Depth: Down to and including healthy tissue and in the subcutaneous layer Percentage of wound debrided: 100 Instrument Used: 5mm curette Tissue Removed: Fibrous, devitalized subcutaneous, biofilm, slough Severity: Fat Layer Exposed Amount of bleeding with debridement: Mild Bleeding Controlled with: Compression and gauze Patient tolerated procedure: Patient tolerated procedure well Post-Debridement Measurements and Additional Note: Post-Debridement Measurements/Treatment MADELINE - Nurse 1 - General Ulcer Assessment Start: 12/08/23 11:04 Freq: Status: Active Protocol: MACIE Activity Type Activity Date Activity User E-sign Co-sign Detail Recorded Client Recorded Date Recorded By Document 12/08/23 11:06 KW Desktop 12/08/23 11:11 KW Document 12/15/23 10:54 DL Desktop 12/15/23 10:57 DL Document 12/22/23 11:06 DL [email or web address] 12/22/23 11:11 DL 12/08/23 12/15/23 12/22/23 11:06 10:54 11:06 WC - Today's Visit Information Type of service Follow-up Visit Follow-up Visit Follow-up Visit (Physician/DIAL REFINISHER (Physician/DIAL REFINISHER (Physician/DIAL REFINISHER ) ) ) Arrival Mode Ambulatory Ambulatory Ambulatory Transfer Assistance None None Patient Identification Verified (Name & Yes Yes Yes ) Patient Requires Transmission-Based No No Precautions Height and Weight Body Mass Index (BMI) 32.8 32.8 32.8 BMI Classification Obese Obese Obese Vital Signs Temperature (97.8 F-99.1 F) 97.8 F 98.1 F 98 F Temperature Source Temporal Temporal Temporal Pulse Rate (60-100) 105 H 102 H 98 Pulse Location Monitor Monitor Monitor Respiratory Rate (12-18) 18 20 H 20 H Respiratory rate source Observation Observation Observation Oxygen Delivery Method Room Air Blood Pressure (90/60-120/80) 116/61 110/60 125/78 H Blood Pressure Mean (mm Hg) 79 76 93 Source Monitor Monitor Monitor Position Semi-Fowlers Blood Pressure Location Left Arm History Since Last Visit- (Skip if this is Patient's initial visit) Have you changed medications since your No No No last visit? Any new allergies or adverse reactions No No No Had a fall/change in ADL's that may No No No increase risk of falls Signs or symptoms of abuse and/or No No No neglect since last visit Have you been in the hospital since your No No No last visit? Has dressing in place as prescribed Yes Yes Yes Has compression in place as prescribed Yes Yes Yes Has offloadiing in place as prescribed Yes Yes Yes Experienced any changes in pain level or No No management Left Footwear Surgical Shoe Surgical Shoe Surgical Shoe with pressure with pressure with pressure relief insole relief insole relief insole Right Footwear Regular Shoe Pain Scale: 0-10 Numeric Is Patient Pain Free? Yes Yes Yes - Nurse 1 - General Ulcer Measurement Start: 12/08/23 11:04 Freq: Status: Active Protocol: Activity Type Activity Date Activity User E-sign Co-sign Detail Recorded Client Recorded Date Recorded By Document 12/08/23 11:06 KW Desktop 12/08/23 11:11 KW Document 12/15/23 10:54 DL Desktop 12/15/23 10:57 DL Document 12/22/23 11:06 DL 10..25.7 12/22/23 11:11 DL 12/08/23 12/15/23 12/22/23 11:06 10:54 11:06 Wound Center Nurse 1 1. L foot dorsal -Current Size (cm) - Length 1.5 1.6 1.6 -Current Size (cm) - Width 1 1.1 1 -Current Size (cm) - Depth 0.3 0.6 0.5 -Total Square Cm 1.5 1.76 1.6 -Exudate Amt Small Medium Small -Exudate Type Serosanguineous Serosanguineous Serosanguineous -Wound Margin Distinct, Distinct, Distinct, Outline Outline Outline Attached Attached Attached -Granulation Amt Large (67-100%) Large (67-100%) Medium (34-66%) -Granulation Quality Red Red Red -Necrosis Amt Small (1-33%) Small (1-33%) Medium (34-66%) -Necrotic Tissue Type Adherent Slough Adherent Slough Adherent Slough -Structure Exposed N/A N/A -Texture (Stormy-wound Skin Appearance) Assessed Scarring Scarring -Moisture (Stormy-wound Skin Appearance) Assessed No Abnormality No Abnormality -Color (Stormy-wound Skin Appearance) Assessed, Erythema Erythema Erythema -Temperature (Tsormy-wound Skin No Abnormality No Abnormality No Abnormality Appearance) (Pt Warm) (Pt Warm) (Pt Warm) -Tenderness on Palpation (Stormy-wound No No Skin Appearance) -Ulcer Cleansing Rinsed/ Soap and Water Soap and Water Irrigated with Saline -Foul Odor after Cleansing No No No -Anesthetic Used 5% Lidocaine 5% Lidocaine 5% Lidocaine Gel Gel Gel WC - Nurse 2 - General Ulcer CM Notes Start: 12/08/23 11:04 Freq: Status: Active Protocol: Activity Type Activity Date Activity User E-sign Co-sign Detail Recorded Client Recorded Date Recorded By Document 12/08/23 11:34 [facility] Desktop 12/08/23 11:49 BM Document 12/15/23 11:06 DS Desktop 12/15/23 11:23 DS Document 12/22/23 11:25 [facility] [email or web address] 12/22/23 11:29 [facility] 05/02/24 05/09/24 05/16/24 11:34 11:06 11:25 Wound Center Nurse 2 1. L foot dorsal -Time : 11:07 11:25 -Correct Patient Yes Yes Yes -Correct Side, Site, Position Yes Yes Yes -Correct Procedure Yes Yes Yes -Procedure Performed Yes Yes Yes -Type of Procedure Debridement Debridement Debridement -Clinical Debridement Subcutaneous Subcutaneous Subcutaneous -Tissue Removed Subcutaneous Subcutaneous Subcutaneous -Post Debridement (cm) - Length 2 1.6 1.6 -Post Debridement (cm) - Width 1.1 1.3 1 -Post Debridement (cm) - Depth 0.6 0.6 0.4 -Total Square (Post) (cm) 2.2 2.08 1.6 -Area of Debridement (cm) - Length 2 1.6 1.6 -Area of Debridement (cm) - Width 1.1 1.3 1 -Total Square (Area) (cm) 2.2 2.08 1.6 -Tunneling No Yes No -Tunneling Position (O'clock) 12 -Tunneling Distance (cm) 0.4 -Undermining/Tunneling Yes No No -Undermining/Tunneling Starts (O'clock 12 ) -Undermining/Tunneling Ends (O'clock) 12 -Maximum Distance (cm) 1 -Undermining/Tunneling Starts #2 (O' 9 clock) -Undermining/Tunneling Ends #2 (O' 9 clock) -Maximum Distance #2 (cm) 0.5 -Circular Undermining No No No -Wound/Ulcer Outcome Not Healed Not Healed Not Healed -Ulcer Cleansing Rinsed/ Rinsed/ Rinsed/ Irrigated with Irrigated with Irrigated with Saline Saline Saline -Foul Odor after Cleansing No No -Bioengineered Tissue No No -Injectable Lidocaine w/ Epi (%) 1 -Injectable Lidocaine w/ Epi (mls) 10 -Bleeding Controlled with Pressure Pressure Pressure -Treatment Response Procedure Procedure Procedure Tolerated Well Tolerated Well Tolerated Well -Offloading Yes Yes Yes -Type of Offloading Surgical Shoe Surgical Shoe Surgical Shoe -Debridement - Subq, 1st 20sq cm Yes Yes Yes Pain Scale: 0-10 Numeric Is Patient Pain Free? Yes Yes Yes WC - Nurse 3 - General Ulcer D/C NN Start: 12/08/23 11:04 Freq: Status: Active Protocol: Activity Type Activity Date Activity User E-sign Co-sign Detail Recorded Client Recorded Date Recorded By Document 12/08/23 11:54 KW Desktop 05/02/24 11:55 KW Document 12/22/23 11:33 [id number] 12/22/23 11:34 GM 12/08/23 12/22/23 11:54 11:33 Wound Care Center Nurse 3 1. L foot dorsal -Ulcer Cleansing Not Cleansed -Negative Pressure Wound Therapy N/A -Primary Dressing Applied AMD Dressing 4x4,C Hydrogel ($),Collagen Powder ($) -Other Dressing gauze moistened with dakins -Primary Dressing Covered/Secured with Dry Gauze & Dry Gauze & Roll Gauze, Roll Gauze, Secured with Secured with Tape Tape -AMD Dressing 4x4 1 Pain Scale: 0-10 Numeric Is Patient Pain Free? Yes Yes WC - Visit Discharge Discharge Condition Stable Stable Ambulatory Status Ambulatory Ambulatory Transportation Private Auto Private Auto Medication Reconcilliation completed & No provided to patient/care provider Clinical Summary of Care Provided Yes Yes Assessment/Plan Assessment/Plan (1) Non-pressure chronic ulcer of other part of left foot with fat layer exposed: CODE(S): L97.522 - Non-pressure chronic ulcer of other part of left foot with fat layer exposed (2) Type 2 diabetes mellitus without complications: CODE(S): E11.9 - Type 2 diabetes mellitus without complications (3) Type 2 diabetes mellitus with foot ulcer: CODE(S): E11.621 - Type 2 diabetes mellitus with foot ulcer; L97.509 - Non-pressure chronic ulcer of other part of unspecified foot with unspecified severity (4) Essential (primary) hypertension: CODE(S): I10 - Essential (primary) hypertension (5) Obesity, unspecified: CODE(S): E66.9 - Obesity, unspecified PLAN: Plan Patient seen and evaluated Ulceration has been present for 3 weeks treated at home by patient and by PCP prior to referral to wound care center. Dorsal aspect of the left foot demonstrates full-thickness ulceration to the level of the subcutaneous tissue at the central aspect of the ulceration with surrounding fibrogranular tissue. There is some undermining of the wound from the 6:00 to 12 o'clock position, which is resolved. No exposure of tendinous structures. No signs of infection Ulceration underwent debridement as noted in the clinical panel above. Ulceration postdebridement measures 1.6 cm x 1.0 cm x 0.4 cm. No signs of infection. Collagen powder, hydrogel, and PHMB dressing applied to the foot. She was instructed to change dressing daily. Discussed washing with Dakin's prior to her applying the collagen powder. She was then offloaded in surgical shoe to the left foot to prevent dorsal irritation secondary to shoe gear strapping/laces. There is continued reduction in ulcerative size versus previous visit. Ulceration is granulating in well at previous areas of undermining. Applied for advanced wound care product, EpiFix for application, insurance has denied stating not medically necessary. Previous A1c 7.5% on 11/23/2023. Discussed continued glycemic control to bring A1c down with goal of 6.5% to optimize wound healing. Encourage lifestyle modification with daily exercise. Discussed proper diabetic diet today. Discussed adequate protein intake to continue to aid in wound healing. Gage supplementation was also recommended. Long discussion was had with patient on 12/01/23 about the necessity to not go barefoot about her house as she has lack of protective sensation secondary to diabetic peripheral polyneuropathy. Discussed that socks include barefoot. Encouraged shoe gear to be worn at all times. Supportive shoe gear was discussed with the patient today. Patient adamantly states I am not can wear shoes in my house, I go barefoot everywhere. Discussed continued progression of ulceration with possible infection given lack of sensation increases her risk of lower extremity amputation. Patient remains adamant stating will this is the first wound I have ever had on my feet, so I think I am doing okay. Given our discussion today it is obvious patient will not continue to follow recommended advice for shoe gear. Discussed signs and symptoms of infection. Discussed with the patient that if she begins to have increasing redness about the ulcerative site that moves up the foot/leg, purulent drainage from the wound site, increasing foul odor from the wound, or if she experiences fever greater than 101 degree accompanied by nausea, vomiting, chills that these are signs of a progressing infection and she should report to the ED to receive IV antibiotics and further evaluation. She voices understanding of this today. The following work up and care recommendations were made: Dressing: Wash with Dakin's. Apply collagen powder, hydrogel, PHMB dressing. Change dressing daily. Wash: Soap and water Tissue growth optimization: Collagen powder/hydrogel Offload: Surgical shoe to left foot to offload preventing dorsal irritation from shoe gear Vascular: Weakly DP and PT pulses, biphasic Doppler pulses. Edema: Currently no edema. Continue to elevate lower extremities at times of rest Infection: No signs of infection Pain: May take [id number] Tylenol for discomfort Host factors: DM type II with peripheral polyneuropathy, noncompliance in shoe gear/barefoot status, HTN, obesity I answered all the patient's questions. To return to the wound healing center in 1 week or call sooner if the patient has any questions or concerns.
[2023-12-29 11:43] VITALS: BP 118/42; PULSE 93; RESP 18; TEMP 35.5; BMI 32.8
--- NOTE | 2023-12-29 12:30 | PN.PCM_ITS ---
History of Present Illness Date of Service: 12/29/23 Chief Complaint: Left foot ulceration History of Wound: Patient is a 73-year-old female with PMHx of diabetes mellitus type 2, HTN, obesity who presents to the wound care center with new ulceration of the dorsal aspect of the left foot. Patient states that 3 weeks ago her foot began to swell and overnight developed a blister to the top of the left foot which subsequently ruptured and broke down into a ulceration. She did follow with her PCP Dr. Felder. Patient was prescribed antibiotics however she does not know what they were but did complete antibiotic course. Patient has been applying antibiotic ointment and Band-Aids to the top of the foot. Patient feels that her wound is not progressing and healing. Her most recent A1c on 11/23/2023 was 7.5%. Patient states that she was down around 6.4% however this has gone up since last year. Patient continues to wear shoe gear but states she goes barefoot inside of her house and refuses to wear shoe gear inside house. She denies constitutional symptoms. Denies further complaints. Subjective Subjective This is a 73-year-old female who presents to the wound care center today for a follow-up of a left dorsal foot ulceration. She states that she has been continuing to change the dressing daily with the collagen powder. States that she can see that the wound continuing to improve. States she has called the insurance about her being denied for wound care product. Denies constitutional symptoms. Denies further complaints. Objective Data Objective Data Vital Signs: Vital Signs Temp Pulse Resp BP O2 Del Method 96 F L 93 18 118/42 L Room Air 12/29/23 11:43 12/29/23 11:43 12/29/23 11:43 12/29/23 11:43 12/08/23 11:06 Oxygen Delivery Method Room Air Weight: 92.079 kg Body Mass Index (BMI) 32.8 Physical Exam Const alert, oriented x3 and no apparent distress General Appearance: cooperative HEENT normocephalic Eyes General Eye: normal appearance of both eyes Neck General: normal visual inspection Lymph Lymphatic: no lymphadenopathy noted and no lymphedema noted Resp normal respiratory effort Cardio regular rate and regular rhythm Extremity normal capillary refill, no calf tenderness and no pedal edema Extremity Narrative: Vascular: DP and PT pulses weakly palpable bilateral. CFT less than 5 seconds to digits of foot bilateral. Doppler demonstrates biphasic pedal pulses bilateral. Normal temperature gradient. Hair growth is diminished to the digits of the foot bilateral. Neurologic: Gross sensation intact. Light sensation intact. Protective sensation is diminished to bilateral foot consistent with diabetic peripheral polyneuropathy. Dermatological: Skin is mildly xerotic on the plantar aspect. Skin demonstrates normal turgor. Negative Stemmer sign second digit bilateral. Dorsal aspect of the left foot demonstrates full-thickness ulceration to the level of the subcutaneous tissue at the central aspect of the ulceration with surrounding fibrogranular tissue. There is some undermining of the wound from the 6:00 to 12 o'clock position. No exposure of tendinous structures. There is periwound rubor noted in addition to skin irritation secondary to application of Band- Aids/adhesive dressing. No erythema, no malodor, no purulent drainage, no lymphangitis/lymphedema, no palpable fluctuance/bogginess noted. Musculoskeletal: Muscle strength 5 of 5 age-appropriate bilateral. Decreased range of motion of the ankle joint dorsiflexion with the knee extended without pain or crepitus bilateral. Decreased range of motion of the first metatarsophalangeal joint in dorsiflexion without pain or crepitus bilateral. Skin no rashes or lesions noted, skin turgor normal and no jaundice Neuro moves all extremities Debridement Note Debridement Note Wound debrided: Left dorsal foot Laterality: Left Wound Grade/Stage: Kaur stage I Type of Debridement: Excisional debridement Anesthesia Used: 5% Lidocaine Gel Depth: Down to and including healthy tissue and in the subcutaneous layer Percentage of wound debrided: 100 Instrument Used: 5mm curette Tissue Removed: Fibrous, devitalized subcutaneous, biofilm, slough Severity: Fat Layer Exposed Amount of bleeding with debridement: Mild Bleeding Controlled with: Compression and gauze Patient tolerated procedure: Patient tolerated procedure well Post-Debridement Measurements and Additional Note: Post-Debridement Measurements/Treatment MADELINE - Nurse 1 - General Ulcer Assessment Start: 12/08/23 11:04 Freq: Status: Active Protocol: MACIE Activity Type Activity Date Activity User E-sign Co-sign Detail Recorded Client Recorded Date Recorded By Document 12/08/23 11:06 KW Desktop 12/08/23 11:11 KW Document 12/15/23 10:54 DL Desktop 12/15/23 10:57 DL Document 12/22/23 11:06 DL [id number] 12/22/23 11:11 DL Document 12/29/23 11:43 RB wound cemter 12/29/23 11:46 RB 12/08/23 12/15/23 12/22/23 11:06 10:54 11:06 WC - Today's Visit Information Type of service Follow-up Visit Follow-up Visit Follow-up Visit (Physician/KNIFE EDGER (Physician/KNIFE EDGER (Physician/KNIFE EDGER ) ) ) Arrival Mode Ambulatory Ambulatory Ambulatory Transfer Assistance None None Patient Identification Verified (Name & Yes Yes Yes ) Patient Requires Transmission-Based No No Precautions Height and Weight Body Mass Index (BMI) 32.8 32.8 32.8 BMI Classification Obese Obese Obese Vital Signs Temperature (97.8 F-99.1 F) 97.8 F 98.1 F 98 F Temperature Source Temporal Temporal Temporal Pulse Rate (60-100) 105 H 102 H 98 Pulse Location Monitor Monitor Monitor Respiratory Rate (12-18) 18 20 H 20 H Respiratory rate source Observation Observation Observation Oxygen Delivery Method Room Air Blood Pressure (90/60-120/80) 116/61 110/60 125/78 H Blood Pressure Mean (mm Hg) 79 76 93 Source Monitor Monitor Monitor Position Semi-Fowlers Blood Pressure Location Left Arm History Since Last Visit- (Skip if this is Patient's initial visit) Have you changed medications since your No No No last visit? Any new allergies or adverse reactions No No No Had a fall/change in ADL's that may No No No increase risk of falls Signs or symptoms of abuse and/or No No No neglect since last visit Have you been in the hospital since your No No No last visit? Has dressing in place as prescribed Yes Yes Yes Has compression in place as prescribed Yes Yes Yes Has offloadiing in place as prescribed Yes Yes Yes Experienced any changes in pain level or No No management Left Footwear Surgical Shoe Surgical Shoe Surgical Shoe with pressure with pressure with pressure relief insole relief insole relief insole Right Footwear Regular Shoe Pain Scale: 0-10 Numeric Is Patient Pain Free? Yes Yes Yes 12/29/23 11:43 WC - Today's Visit Information Type of service Follow-up Visit (Physician/KNIFE EDGER ) Arrival Mode Ambulatory Transfer Assistance None Patient Identification Verified (Name & Yes ) Patient Requires Transmission-Based No Precautions Height and Weight Body Mass Index (BMI) 32.8 BMI Classification Obese Vital Signs Temperature (97.8 F-99.1 F) 96 F L Temperature Source Temporal Pulse Rate (60-100) 93 Pulse Location Monitor Respiratory Rate (12-18) 18 Respiratory rate source Observation Oxygen Delivery Method Blood Pressure (90/60-120/80) 118/42 L Blood Pressure Mean (mm Hg) 67 Source Monitor Position Semi-Fowlers Blood Pressure Location Left Arm History Since Last Visit- (Skip if this is Patient's initial visit) Have you changed medications since your No last visit? Any new allergies or adverse reactions No Had a fall/change in ADL's that may No increase risk of falls Signs or symptoms of abuse and/or No neglect since last visit Have you been in the hospital since your No last visit? Has dressing in place as prescribed Yes Has compression in place as prescribed No Has offloadiing in place as prescribed No Experienced any changes in pain level or No management Left Footwear Right Footwear Pain Scale: 0-10 Numeric Is Patient Pain Free? Yes WC - Nurse 1 - General Ulcer Measurement Start: 12/08/23 11:04 Freq: Status: Active Protocol: Activity Type Activity Date Activity User E-sign Co-sign Detail Recorded Client Recorded Date Recorded By Document 12/08/23 11:06 KW Desktop 12/08/23 11:11 KW Document 12/15/23 10:54 DL Desktop 12/15/23 10:57 DL Document 12/22/23 11:06 DL [email or web address] 12/22/23 11:11 DL Document 12/29/23 11:43 RB wound cemter 12/29/23 11:46 RB 12/08/23 12/15/23 12/22/23 11:06 10:54 11:06 Wound Center Nurse 1 1. L foot dorsal -Combined with other wound -Current Size (cm) - Length 1.5 1.6 1.6 -Current Size (cm) - Width 1 1.1 1 -Current Size (cm) - Depth 0.3 0.6 0.5 -Total Square Cm 1.5 1.76 1.6 -Tunneling -Undermining/Tunneling -Circular Undermining -Exudate Amt Small Medium Small -Exudate Type Serosanguineous Serosanguineous Serosanguineous -Wound Margin Distinct, Distinct, Distinct, Outline Outline Outline Attached Attached Attached -Granulation Amt Large (67-100%) Large (67-100%) Medium (34-66%) -Granulation Quality Red Red Red -Slough/Fibrin -Necrosis Amt Small (1-33%) Small (1-33%) Medium (34-66%) -Necrotic Tissue Type Adherent Slough Adherent Slough Adherent Slough -Structure Exposed N/A N/A -Texture (Stormy-wound Skin Appearance) Assessed Scarring Scarring -Moisture (Stormy-wound Skin Appearance) Assessed No Abnormality No Abnormality -Color (Stormy-wound Skin Appearance) Assessed, Erythema Erythema Erythema -Temperature (Stormy-wound Skin No Abnormality No Abnormality No Abnormality Appearance) (Pt Warm) (Pt Warm) (Pt Warm) -Tenderness on Palpation (Stormy-wound No No Skin Appearance) -Ulcer Cleansing Rinsed/ Soap and Water Soap and Water Irrigated with Saline -Foul Odor after Cleansing No No No -Anesthetic Used 5% Lidocaine 5% Lidocaine 5% Lidocaine Gel Gel Gel Lower Limb Edema Present Right Calf (cm) Right Ankle (cm) 12/29/23 11:43 Wound Center Nurse 1 1. L foot dorsal -Combined with other wound No -Current Size (cm) - Length 1.3 -Current Size (cm) - Width 0.8 -Current Size (cm) - Depth 0.2 -Total Square Cm 1.04 -Tunneling No -Undermining/Tunneling No -Circular Undermining No -Exudate Amt Medium -Exudate Type Serosanguineous -Wound Margin Distinct, Outline Attached -Granulation Amt Medium (34-66%) -Granulation Quality [place] -Slough/Fibrin Yes -Necrosis Amt Medium (34-66%) -Necrotic Tissue Type Adherent Slough -Structure Exposed N/A -Texture (Stormy-wound Skin Appearance) Assessed -Moisture (Stormy-wound Skin Appearance) Assessed -Color (Stormy-wound Skin Appearance) Assessed -Temperature (Stormy-wound Skin No Abnormality Appearance) (Pt Warm) -Tenderness on Palpation (Stormy-wound No Skin Appearance) -Ulcer Cleansing Wound Cleanser -Foul Odor after Cleansing No -Anesthetic Used 5% Lidocaine Gel Lower Limb Edema Present Yes Right Calf (cm) 35 Right Ankle (cm) 21.5 WC - Nurse 2 - General Ulcer CM Notes Start: 12/08/23 11:04 Freq: Status: Active Protocol: Activity Type Activity Date Activity User E-sign Co-sign Detail Recorded Client Recorded Date Recorded By Document 12/08/23 11:34 [facility] Desktop 12/08/23 11:49 BM Document 12/15/23 11:06 DS Desktop 12/15/23 11:23 DS Document 12/22/23 11:25 [facility] [email or web address] 12/22/23 11:29 [facility] Document 12/29/23 12:09 [facility] [id number] 12/29/23 12:14 [facility] 12/08/23 12/15/23 12/22/23 11:34 11:06 11:25 Wound Center Nurse 2 1. L foot dorsal -Time 11:34 11:07 11:25 -Correct Patient Yes Yes Yes -Correct Side, Site, Position Yes Yes Yes -Correct Procedure Yes Yes Yes -Procedure Performed Yes Yes Yes -Type of Procedure Debridement Debridement Debridement -Clinical Debridement Subcutaneous Subcutaneous Subcutaneous -Tissue Removed Subcutaneous Subcutaneous Subcutaneous -Post Debridement (cm) - Length 2 1.6 1.6 -Post Debridement (cm) - Width 1.1 1.3 1 -Post Debridement (cm) - Depth 0.6 0.6 0.4 -Total Square (Post) (cm) 2.2 2.08 1.6 -Area of Debridement (cm) - Length 2 1.6 1.6 -Area of Debridement (cm) - Width 1.1 1.3 1 -Total Square (Area) (cm) 2.2 2.08 1.6 -Tunneling No Yes No -Tunneling Position (O'clock) 12 -Tunneling Distance (cm) 0.4 -Undermining/Tunneling Yes No No -Undermining/Tunneling Starts (O'clock 12 ) -Undermining/Tunneling Ends (O'clock) 12 -Maximum Distance (cm) 1 -Undermining/Tunneling Starts #2 (O' 9 clock) -Undermining/Tunneling Ends #2 (O' 9 clock) -Maximum Distance #2 (cm) 0.5 -Circular Undermining No No No -Wound/Ulcer Outcome Not Healed Not Healed Not Healed -Ulcer Cleansing Rinsed/ Rinsed/ Rinsed/ Irrigated with Irrigated with Irrigated with Saline Saline Saline -Foul Odor after Cleansing No No -Bioengineered Tissue No No -Injectable Lidocaine w/ Epi (%) 1 -Injectable Lidocaine w/ Epi (mls) 10 -Bleeding Controlled with Pressure Pressure Pressure -Treatment Response Procedure Procedure Procedure Tolerated Well Tolerated Well Tolerated Well -Offloading Yes Yes Yes -Type of Offloading Surgical Shoe Surgical Shoe Surgical Shoe -Debridement - Subq, 1st 20sq cm Yes Yes Yes Pain Scale: 0-10 Numeric Is Patient Pain Free? Yes Yes Yes 12/29/23 12:09 Wound Center Nurse 2 1. L foot dorsal -Time 12:10 -Correct Patient Yes -Correct Side, Site, Position Yes -Correct Procedure Yes -Procedure Performed Yes -Type of Procedure Debridement -Clinical Debridement Subcutaneous -Tissue Removed Subcutaneous -Post Debridement (cm) - Length 1.2 -Post Debridement (cm) - Width 0.8 -Post Debridement (cm) - Depth 0.4 -Total Square (Post) (cm) 0.96 -Area of Debridement (cm) - Length 1.2 -Area of Debridement (cm) - Width 0.8 -Total Square (Area) (cm) 0.96 -Tunneling No -Tunneling Position (O'clock) -Tunneling Distance (cm) -Undermining/Tunneling No -Undermining/Tunneling Starts (O'clock ) -Undermining/Tunneling Ends (O'clock) -Maximum Distance (cm) -Undermining/Tunneling Starts #2 (O' clock) -Undermining/Tunneling Ends #2 (O' clock) -Maximum Distance #2 (cm) -Circular Undermining No -Wound/Ulcer Outcome Not Healed -Ulcer Cleansing Rinsed/ Irrigated with Saline -Foul Odor after Cleansing No -Bioengineered Tissue No -Injectable Lidocaine w/ Epi (%) -Injectable Lidocaine w/ Epi (mls) -Bleeding Controlled with Pressure -Treatment Response Procedure Tolerated Well -Offloading Yes -Type of Offloading Surgical Shoe -Debridement - Subq, 1st 20sq cm Yes Pain Scale: 0-10 Numeric Is Patient Pain Free? Yes WC - Nurse 3 - General Ulcer D/C NN Start: 12/08/23 11:04 Freq: Status: Active Protocol: Activity Type Activity Date Activity User E-sign Co-sign Detail Recorded Client Recorded Date Recorded By Document 12/08/23 11:54 KW Desktop 12/08/23 11:55 KW Document 12/22/23 11:33 [id number] 12/22/23 11:34 12/08/23 12/22/23 11:54 11:33 Wound Care Center Nurse 3 1. L foot dorsal -Ulcer Cleansing Not Cleansed -Negative Pressure Wound Therapy N/A -Primary Dressing Applied AMD Dressing 4x4,C Hydrogel ($),Collagen Powder ($) -Other Dressing gauze moistened with dakins -Primary Dressing Covered/Secured with Dry Gauze & Dry Gauze & Roll Gauze, Roll Gauze, Secured with Secured with Tape Tape -AMD Dressing 4x4 1 Pain Scale: 0-10 Numeric Is Patient Pain Free? Yes Yes WC - Visit Discharge Discharge Condition Stable Stable Ambulatory Status Ambulatory Ambulatory Transportation Private Auto Private Auto Medication Reconcilliation completed & No provided to patient/care provider Clinical Summary of Care Provided Yes Yes Assessment/Plan Assessment/Plan (1) Non-pressure chronic ulcer of other part of left foot with fat layer exposed: CODE(S): L97.522 - Non-pressure chronic ulcer of other part of left foot with fat layer exposed (2) Type 2 diabetes mellitus without complications: CODE(S): E11.9 - Type 2 diabetes mellitus without complications (3) Type 2 diabetes mellitus with foot ulcer: CODE(S): E11.621 - Type 2 diabetes mellitus with foot ulcer; L97.509 - Non-pressure chronic ulcer of other part of unspecified foot with unspecified severity (4) Essential (primary) hypertension: CODE(S): I10 - Essential (primary) hypertension (5) Obesity, unspecified: CODE(S): E66.9 - Obesity, unspecified PLAN: Plan Patient seen and evaluated Ulceration had been present for 3 weeks treated at home by patient and by PCP prior to referral to wound care center. Dorsal aspect of the left foot demonstrates full-thickness ulceration to the level of the subcutaneous tissue at the central aspect of the ulceration with surrounding fibrogranular tissue. There was some undermining of the wound from the 6:00 to 12 o'clock position, which is resolved. No exposure of tendinous structures. No signs of infection Ulceration underwent debridement as noted in the clinical panel above. Ulceration postdebridement measures 1.2 cm x 0.8 cm x 0.4 cm. No signs of infection. Collagen powder, hydrogel, and PHMB dressing applied to the foot. She was instructed to change dressing daily. Discussed washing with Dakin's prior to her applying the collagen powder. She was then offloaded in surgical shoe to the left foot to prevent dorsal irritation secondary to shoe gear strapping/laces. There is continued reduction in ulcerative size versus previous visit. Ulceration is granulating in well at previous areas of undermining. Applied for advanced wound care product, EpiFix for application, insurance has denied stating not medically necessary. Previous A1c 7.5% on 11/23/2023. Discussed continued glycemic control to bring A1c down with goal of 6.5% to optimize wound healing. Encourage lifestyle modification with daily exercise. Discussed proper diabetic diet today. Discussed adequate protein intake to continue to aid in wound healing. Gage supplementation was also recommended. Long discussion was had with patient on 12/01/23 about the necessity to not go barefoot about her house as she has lack of protective sensation secondary to diabetic peripheral polyneuropathy. Discussed that socks include barefoot. Encouraged shoe gear to be worn at all times. Supportive shoe gear was discussed with the patient today. Patient adamantly states I am not can wear shoes in my house, I go barefoot everywhere. Discussed continued progression of ulceration with possible infection given lack of sensation increases her risk of lower extremity amputation. Patient remains adamant stating will this is the first wound I have ever had on my feet, so I think I am doing okay. Given our discussion today it is obvious patient will not continue to follow recommended advice for shoe gear. Discussed signs and symptoms of infection. Discussed with the patient that if she begins to have increasing redness about the ulcerative site that moves up the foot/leg, purulent drainage from the wound site, increasing foul odor from the wound, or if she experiences fever greater than 101 degree accompanied by nausea, vomiting, chills that these are signs of a progressing infection and she should report to the ED to receive IV antibiotics and further evaluation. She voices understanding of this today. The following work up and care recommendations were made: Dressing: Wash with Dakin's. Apply collagen powder, hydrogel, PHMB dressing. Change dressing daily. Wash: Soap and water Tissue growth optimization: Collagen powder/hydrogel/PHMB dressing Offload: Surgical shoe to left foot to offload preventing dorsal irritation from shoe gear Vascular: Weakly DP and PT pulses, biphasic Doppler pulses. Edema: Currently no edema. Continue to elevate lower extremities at times of rest Infection: No signs of infection Pain: May take [id number] Tylenol for discomfort Host factors: DM type II with peripheral polyneuropathy, noncompliance in shoe gear/barefoot status, HTN, obesity I answered all the patient's questions. To return to the wound healing center in 1 week or call sooner if the patient has any questions or concerns.
[2024-01-05 11:15] VITALS: BP 130/81; PULSE 98; RESP 16; TEMP 36.4; BMI 32.8
--- NOTE | 2024-01-05 12:08 | PN.PCM_ITS ---
History of Present Illness Date of Service: 01/05/24 Chief Complaint: Left foot ulceration History of Wound: Patient is a 73-year-old female with PMHx of diabetes mellitus type 2, HTN, obesity who presents to the wound care center with new ulceration of the dorsal aspect of the left foot. Patient states that 3 weeks ago her foot began to swell and overnight developed a blister to the top of the left foot which subsequently ruptured and broke down into a ulceration. She did follow with her PCP Dr. Felder. Patient was prescribed antibiotics however she does not know what they were but did complete antibiotic course. Patient has been applying antibiotic ointment and Band-Aids to the top of the foot. Patient feels that her wound is not progressing and healing. Her most recent A1c on 11/23/2023 was 7.5%. Patient states that she was down around 6.4% however this has gone up since last year. Patient continues to wear shoe gear but states she goes barefoot inside of her house and refuses to wear shoe gear inside house. She denies constitutional symptoms. Denies further complaints. Subjective Subjective This is a 73-year-old female who presents to the wound care center today for a follow-up of a left dorsal foot ulceration. She states that she has been continuing to change the dressing daily with the collagen powder. States that she can see that the wound continuing to improve and getting smaller. States insurance still denying graft product. Denies constitutional symptoms. Denies further complaints. Objective Data Objective Data Vital Signs: Vital Signs Temp Pulse Resp BP O2 Del Method 97.6 F L 98 16 130/81 H Room Air 01/05/24 11:15 01/05/24 11:15 01/05/24 11:15 01/05/24 11:15 01/05/24 11:15 Oxygen Delivery Method Room Air Weight: 92.079 kg Body Mass Index (BMI) 32.8 Physical Exam Const alert, oriented x3 and no apparent distress General Appearance: cooperative HEENT normocephalic Eyes General Eye: normal appearance of both eyes Neck General: normal visual inspection Lymph Lymphatic: no lymphadenopathy noted and no lymphedema noted Resp normal respiratory effort Cardio regular rate and regular rhythm Extremity normal capillary refill, no calf tenderness and no pedal edema Extremity Narrative: Vascular: DP and PT pulses weakly palpable bilateral. CFT less than 5 seconds to digits of foot bilateral. Doppler demonstrates biphasic pedal pulses bilateral. Normal temperature gradient. Hair growth is diminished to the digits of the foot bilateral. Neurologic: Gross sensation intact. Light sensation intact. Protective sensation is diminished to bilateral foot consistent with diabetic peripheral polyneuropathy. Dermatological: Skin is mildly xerotic on the plantar aspect. Skin demonstrates normal turgor. Negative Stemmer sign second digit bilateral. Dorsal aspect of the left foot demonstrates full-thickness ulceration to the level of the subcutaneous tissue at the central aspect of the ulceration with surrounding fibrogranular tissue. There is some undermining of the wound from the 6:00 to 12 o'clock position. No exposure of tendinous structures. There is periwound rubor noted in addition to skin irritation secondary to application of Band- Aids/adhesive dressing. No erythema, no malodor, no purulent drainage, no lymphangitis/lymphedema, no palpable fluctuance/bogginess noted. Musculoskeletal: Muscle strength 5 of 5 age-appropriate bilateral. Decreased range of motion of the ankle joint dorsiflexion with the knee extended without pain or crepitus bilateral. Decreased range of motion of the first metatarsophalangeal joint in dorsiflexion without pain or crepitus bilateral. Skin no rashes or lesions noted, skin turgor normal and no jaundice Neuro moves all extremities Debridement Note Debridement Note Wound debrided: Dorsal left foot Laterality: Left Wound Grade/Stage: Kaur stage I Type of Debridement: Excisional debridement Anesthesia Used: 5% Lidocaine Gel Depth: Down to and including healthy tissue and in the subcutaneous layer Percentage of wound debrided: 100 Instrument Used: 3mm curette Tissue Removed: Fibrous, devitalized subcutaneous, biofilm, slough Severity: Fat Layer Exposed Amount of bleeding with debridement: Mild Bleeding Controlled with: Compression and gauze Patient tolerated procedure: Patient tolerated procedure well Post-Debridement Measurements and Additional Note: Post-Debridement Measurements/Treatment MADELINE - Nurse 1 - General Ulcer Assessment Start: 12/08/23 11:04 Freq: Status: Active Protocol: MACIE Activity Type Activity Date Activity User E-sign Co-sign Detail Recorded Client Recorded Date Recorded By Document 12/08/23 11:06 KW Desktop 12/08/23 11:11 KW Document 12/15/23 10:54 DL Desktop 12/15/23 10:57 DL Document 12/22/23 11:06 DL [id number] 12/22/23 11:11 DL Document 12/29/23 11:43 RB wound cemter 12/29/23 11:46 RB Document 01/05/24 11:15 KW wound center 01/05/24 11:21 KW 12/08/23 12/15/23 12/22/23 11:06 10:54 11:06 WC - Today's Visit Information Type of service Follow-up Visit Follow-up Visit Follow-up Visit (Physician/CORRIDOR REDEVELOPMENT MANAGER (Physician/CORRIDOR REDEVELOPMENT MANAGER (Physician/CORRIDOR REDEVELOPMENT MANAGER ) ) ) Arrival Mode Ambulatory Ambulatory Ambulatory Transfer Assistance None None Patient Identification Verified (Name & Yes Yes Yes ) Patient Requires Transmission-Based No No Precautions Height and Weight Body Mass Index (BMI) 32.8 32.8 32.8 BMI Classification Obese Obese Obese Vital Signs Temperature (97.8 F-99.1 F) 97.8 F 98.1 F 98 F Temperature Source Temporal Temporal Temporal Pulse Rate (60-100) 105 H 102 H 98 Pulse Location Monitor Monitor Monitor Respiratory Rate (12-18) 18 20 H 20 H Respiratory rate source Observation Observation Observation Oxygen Delivery Method Room Air Blood Pressure (90/60-120/80) 116/61 110/60 125/78 H Blood Pressure Mean (mm Hg) 79 76 93 Source Monitor Monitor Monitor Position Semi-Fowlers Blood Pressure Location Left Arm History Since Last Visit- (Skip if this is Patient's initial visit) Have you changed medications since your No No No last visit? Any new allergies or adverse reactions No No No Had a fall/change in ADL's that may No No No increase risk of falls Signs or symptoms of abuse and/or No No No neglect since last visit Have you been in the hospital since your No No No last visit? Has dressing in place as prescribed Yes Yes Yes Has compression in place as prescribed Yes Yes Yes Has offloadiing in place as prescribed Yes Yes Yes Experienced any changes in pain level or No No management Left Footwear Surgical Shoe Surgical Shoe Surgical Shoe with pressure with pressure with pressure relief insole relief insole relief insole Right Footwear Regular Shoe Pain Scale: 0-10 Numeric Is Patient Pain Free? Yes Yes Yes 12/29/23 01/05/24 11:43 11:15 WC - Today's Visit Information Type of service Follow-up Visit Follow-up Visit (Physician/CORRIDOR REDEVELOPMENT MANAGER (Physician/CORRIDOR REDEVELOPMENT MANAGER ) ) Arrival Mode Ambulatory Transfer Assistance None Patient Identification Verified (Name & Yes Yes ) Patient Requires Transmission-Based No Precautions Height and Weight Body Mass Index (BMI) 32.8 32.8 BMI Classification Obese Obese Vital Signs Temperature (97.8 F-99.1 F) 96 F L 97.6 F L Temperature Source Temporal Temporal Pulse Rate (60-100) 93 98 Pulse Location Monitor Monitor Respiratory Rate (12-18) 18 16 Respiratory rate source Observation Observation Oxygen Delivery Method Room Air Blood Pressure (90/60-120/80) 118/42 L 130/81 H Blood Pressure Mean (mm Hg) 67 97 Source Monitor Monitor Position Semi-Fowlers Semi-Fowlers Blood Pressure Location Left Arm Left Arm History Since Last Visit- (Skip if this is Patient's initial visit) Have you changed medications since your No No last visit? Any new allergies or adverse reactions No No Had a fall/change in ADL's that may No No increase risk of falls Signs or symptoms of abuse and/or No No neglect since last visit Have you been in the hospital since your No No last visit? Has dressing in place as prescribed Yes No Has compression in place as prescribed No N/A Has offloadiing in place as prescribed No Experienced any changes in pain level or No No management Left Footwear Surgical Shoe with pressure relief insole Right Footwear Regular Shoe Pain Scale: 0-10 Numeric Is Patient Pain Free? Yes Yes WC - Nurse 1 - General Ulcer Measurement Start: 12/08/23 11:04 Freq: Status: Active Protocol: Activity Type Activity Date Activity User E-sign Co-sign Detail Recorded Client Recorded Date Recorded By Document 12/08/23 11:06 KW Desktop 12/08/23 11:11 KW Document 12/15/23 10:54 DL Desktop 12/15/23 10:57 DL Document 12/22/23 11:06 DL [email or web address] 12/22/23 11:11 DL Document 12/29/23 11:43 RB wound cemter 12/29/23 11:46 RB Document 01/05/24 11:15 KW wound center 01/05/24 11:21 KW 12/08/23 12/15/23 12/22/23 11:06 10:54 11:06 Wound Center Nurse 1 1. L foot dorsal -Combined with other wound -Current Size (cm) - Length 1.5 1.6 1.6 -Current Size (cm) - Width 1 1.1 1 -Current Size (cm) - Depth 0.3 0.6 0.5 -Total Square Cm 1.5 1.76 1.6 -Tunneling -Undermining/Tunneling -Circular Undermining -Exudate Amt Small Medium Small -Exudate Type Serosanguineous Serosanguineous Serosanguineous -Wound Margin Distinct, Distinct, Distinct, Outline Outline Outline Attached Attached Attached -Granulation Amt Large (67-100%) Large (67-100%) Medium (34-66%) -Granulation Quality Red Red Red -Slough/Fibrin -Necrosis Amt Small (1-33%) Small (1-33%) Medium (34-66%) -Necrotic Tissue Type Adherent Slough Adherent Slough Adherent Slough -Structure Exposed N/A N/A -Texture (Stormy-wound Skin Appearance) Assessed Scarring Scarring -Moisture (Stormy-wound Skin Appearance) Assessed No Abnormality No Abnormality -Color (Stormy-wound Skin Appearance) Assessed, Erythema Erythema Erythema -Temperature (Stormy-wound Skin No Abnormality No Abnormality No Abnormality Appearance) (Pt Warm) (Pt Warm) (Pt Warm) -Tenderness on Palpation (Stormy-wound No No Skin Appearance) -Ulcer Cleansing Rinsed/ Soap and Water Soap and Water Irrigated with Saline -Foul Odor after Cleansing No No No -Anesthetic Used 5% Lidocaine 5% Lidocaine 5% Lidocaine Gel Gel Gel Lower Limb Edema Present Right Calf (cm) Right Ankle (cm) 12/29/23 01/05/24 11:43 11:15 Wound Center Nurse 1 1. L foot dorsal -Combined with other wound No -Current Size (cm) - Length 1.3 1.2 -Current Size (cm) - Width 0.8 0.6 -Current Size (cm) - Depth 0.2 0.3 -Total Square Cm 1.04 0.72 -Tunneling No -Undermining/Tunneling No -Circular Undermining No -Exudate Amt Medium Small -Exudate Type Serosanguineous Serosanguineous -Wound Margin Distinct, Distinct, Outline Outline Attached Attached -Granulation Amt Medium (34-66%) Medium (34-66%) -Granulation Quality [place] -Slough/Fibrin Yes -Necrosis Amt Medium (34-66%) Medium (34-66%) -Necrotic Tissue Type Adherent Slough Adherent Slough -Structure Exposed N/A -Texture (Stormy-wound Skin Appearance) Assessed Assessed, Localized Edema -Moisture (Stormy-wound Skin Appearance) Assessed Assessed -Color (Stormy-wound Skin Appearance) Assessed Assessed, Erythema -Temperature (Stormy-wound Skin No Abnormality No Abnormality Appearance) (Pt Warm) (Pt Warm) -Tenderness on Palpation (Stormy-wound No Skin Appearance) -Ulcer Cleansing Wound Cleanser Rinsed/ Irrigated with Saline -Foul Odor after Cleansing No No -Anesthetic Used 5% Lidocaine 5% Lidocaine Gel Gel Lower Limb Edema Present Yes Right Calf (cm) 35 Right Ankle (cm) 21.5 WC - Nurse 2 - General Ulcer CM Notes Start: 12/08/23 11:04 Freq: Status: Active Protocol: Activity Type Activity Date Activity User E-sign Co-sign Detail Recorded Client Recorded Date Recorded By Document 12/08/23 11:34 [facility] Desktop 12/08/23 11:49 [facility] Document 12/15/23 11:06 Desktop 12/15/23 11:23 DS Document 12/22/23 11:25 [facility] [id number] 12/22/23 11:29 [facility] Document 12/29/23 12:09 [facility] [id number] 12/29/23 12:14 [facility] Document 01/05/24 11:44 [facility] 01/05/24 11:48 [facility] 12/08/23 12/15/23 12/22/23 11:34 11:06 11:25 Wound Center Nurse 2 1. L foot dorsal -Time 11:34 11:07 11:25 -Correct Patient Yes Yes Yes -Correct Side, Site, Position Yes Yes Yes -Correct Procedure Yes Yes Yes -Procedure Performed Yes Yes Yes -Type of Procedure Debridement Debridement Debridement -Clinical Debridement Subcutaneous Subcutaneous Subcutaneous -Tissue Removed Subcutaneous Subcutaneous Subcutaneous -Post Debridement (cm) - Length 2 1.6 1.6 -Post Debridement (cm) - Width 1.1 1.3 1 -Post Debridement (cm) - Depth 0.6 0.6 0.4 -Total Square (Post) (cm) 2.2 2.08 1.6 -Area of Debridement (cm) - Length 2 1.6 1.6 -Area of Debridement (cm) - Width 1.1 1.3 1 -Total Square (Area) (cm) 2.2 2.08 1.6 -Tunneling No Yes No -Tunneling Position (O'clock) 12 -Tunneling Distance (cm) 0.4 -Undermining/Tunneling Yes No No -Undermining/Tunneling Starts (O'clock 12 ) -Undermining/Tunneling Ends (O'clock) 12 -Maximum Distance (cm) 1 -Undermining/Tunneling Starts #2 (O' 9 clock) -Undermining/Tunneling Ends #2 (O' 9 clock) -Maximum Distance #2 (cm) 0.5 -Circular Undermining No No No -Wound/Ulcer Outcome Not Healed Not Healed Not Healed -Ulcer Cleansing Rinsed/ Rinsed/ Rinsed/ Irrigated with Irrigated with Irrigated with Saline Saline Saline -Foul Odor after Cleansing No No -Bioengineered Tissue No No -Injectable Lidocaine w/ Epi (%) 1 -Injectable Lidocaine w/ Epi (mls) 10 -Bleeding Controlled with Pressure Pressure Pressure -Treatment Response Procedure Procedure Procedure Tolerated Well Tolerated Well Tolerated Well -Offloading Yes Yes Yes -Type of Offloading Surgical Shoe Surgical Shoe Surgical Shoe -Debridement - Subq, 1st 20sq cm Yes Yes Yes Pain Scale: 0-10 Numeric Is Patient Pain Free? Yes Yes Yes 12/29/23 01/05/24 12:09 11:44 Wound Center Nurse 2 1. L foot dorsal -Time 12:10 11:45 -Correct Patient Yes Yes -Correct Side, Site, Position Yes Yes -Correct Procedure Yes Yes -Procedure Performed Yes Yes -Type of Procedure Debridement Debridement -Clinical Debridement Subcutaneous Subcutaneous -Tissue Removed Subcutaneous Subcutaneous -Post Debridement (cm) - Length 1.2 1 -Post Debridement (cm) - Width 0.8 0.5 -Post Debridement (cm) - Depth 0.4 0.4 -Total Square (Post) (cm) 0.96 0.5 -Area of Debridement (cm) - Length 1.2 1 -Area of Debridement (cm) - Width 0.8 0.5 -Total Square (Area) (cm) 0.96 0.5 -Tunneling No No -Tunneling Position (O'clock) -Tunneling Distance (cm) -Undermining/Tunneling No No -Undermining/Tunneling Starts (O'clock ) -Undermining/Tunneling Ends (O'clock) -Maximum Distance (cm) -Undermining/Tunneling Starts #2 (O' clock) -Undermining/Tunneling Ends #2 (O' clock) -Maximum Distance #2 (cm) -Circular Undermining No No -Wound/Ulcer Outcome Not Healed Not Healed -Ulcer Cleansing Rinsed/ Rinsed/ Irrigated with Irrigated with Saline Saline -Foul Odor after Cleansing No No -Bioengineered Tissue No No -Injectable Lidocaine w/ Epi (%) -Injectable Lidocaine w/ Epi (mls) -Bleeding Controlled with Pressure Pressure -Treatment Response Procedure Procedure Tolerated Well Tolerated Well -Offloading Yes Yes -Type of Offloading Surgical Shoe Surgical Shoe -Debridement - Subq, 1st 20sq cm Yes Yes Pain Scale: 0-10 Numeric Is Patient Pain Free? Yes Yes - Nurse 3 - General Ulcer D/C NN Start: 12/08/23 11:04 Freq: Status: Active Protocol: Activity Type Activity Date Activity User E-sign Co-sign Detail Recorded Client Recorded Date Recorded By Document 12/08/23 11:54 KW Desktop 12/08/23 11:55 KW Document 12/22/23 11:33 [id number] 12/22/23 11:34 Document 01/05/24 11:51 [facility] 01/05/24 11:52 [facility] 12/08/23 12/22/23 01/05/24 11:54 11:33 11:51 Wound Care Center Nurse 3 1. L foot dorsal -Ulcer Cleansing Not Cleansed Rinsed/ Irrigated with Saline -Foul Odor after Cleansing No -Negative Pressure Wound Therapy N/A -Primary Dressing Applied AMD Dressing AMD Dressing 4x4,C Hydrogel 4x4,Collagen ($),Collagen Powder ($) Powder ($) -Other Dressing gauze moistened DRSG PER DL [employer] with arya -Primary Dressing Covered/Secured with Dry Gauze & Dry Gauze & Dry Gauze & Roll Gauze, Roll Gauze, Roll Gauze, Secured with Secured with Secured with Tape Tape Tape -AMD Dressing 4x4 1 3 Treatment Response Procedure Tolerated Well Pain Scale: 0-10 Numeric Is Patient Pain Free? Yes Yes Yes WC - Visit Discharge Discharge Condition Stable Stable Stable Ambulatory Status Ambulatory Ambulatory Ambulatory Transportation Private Auto Private Auto Private Auto Medication Reconcilliation completed & No provided to patient/care provider Clinical Summary of Care Provided Yes Yes Assessment/Plan Assessment/Plan (1) Non-pressure chronic ulcer of other part of left foot with fat layer exposed: CODE(S): L97.522 - Non-pressure chronic ulcer of other part of left foot with fat layer exposed (2) Type 2 diabetes mellitus without complications: CODE(S): E11.9 - Type 2 diabetes mellitus without complications (3) Type 2 diabetes mellitus with foot ulcer: CODE(S): E11.621 - Type 2 diabetes mellitus with foot ulcer; L97.509 - Non-pressure chronic ulcer of other part of unspecified foot with unspecified severity (4) Essential (primary) hypertension: CODE(S): I10 - Essential (primary) hypertension (5) Obesity, unspecified: CODE(S): E66.9 - Obesity, unspecified PLAN: Plan Patient seen and evaluated Ulceration had been present for 3 weeks treated at home by patient and by PCP prior to referral to wound care center. Dorsal aspect of the left foot demonstrates full-thickness ulceration to the level of the subcutaneous tissue at the central aspect of the ulceration with surrounding fibrogranular tissue. There was some undermining of the wound from the 6:00 to 12 o'clock position, which is resolved. No exposure of tendinous structures. No signs of infection Ulceration underwent debridement as noted in the clinical panel above. Ulceration postdebridement measures 1.0 cm x 0.5 cm x 0.4 cm. No signs of infection. Collagen powder, hydrogel, and PHMB dressing applied to the foot. She was instructed to change dressing daily. Discussed washing with Dakin's prior to her applying the collagen powder. She was then offloaded in surgical shoe to the left foot to prevent dorsal irritation secondary to shoe gear strapping/laces. There is continued reduction in ulcerative size versus previous visit. Ulceration is granulating in well and there is no remaining undermining. Applied for advanced wound care product, EpiFix for application, insurance has denied stating not medically necessary. Previous A1c 7.5% on 11/23/2023. Discussed continued glycemic control to bring A1c down with goal of 6.5% to optimize wound healing. Encourage lifestyle modif ication with daily exercise. Discussed proper diabetic diet today. Discussed adequate protein intake to continue to aid in wound healing. Gage supplementation was also recommended. Long discussion was had with patient on 12/01/23 about the necessity to not go barefoot about her house as she has lack of protective sensation secondary to diabetic peripheral polyneuropathy. Discussed that socks include barefoot. Encouraged shoe gear to be worn at all times. Supportive shoe gear was discussed with the patient today. Patient adamantly states I am not can wear shoes in my house, I go barefoot everywhere. Discussed continued progression of ulceration with possible infection given lack of sensation increases her risk of lower extremity amputation. Patient remains adamant stating will this is the first wound I have ever had on my feet, so I think I am doing okay. Given our discussion today it is obvious patient will not continue to follow recommended advice for shoe gear. Discussed signs and symptoms of infection. Discussed with the patient that if she begins to have increasing redness about the ulcerative site that moves up the foot/leg, purulent drainage from the wound site, increasing foul odor from the wound, or if she experiences fever greater than 101 degree accompanied by nausea, vomiting, chills that these are signs of a progressing infection and she should report to the ED to receive IV antibiotics and further evaluation. She voices understanding of this today. The following work up and care recommendations were made: Dressing: Wash with Dakin's. Apply collagen powder, hydrogel, PHMB dressing. Change dressing daily. Wash: Soap and water Tissue growth optimization: Collagen powder/hydrogel/PHMB dressing Offload: Surgical shoe to left foot to offload preventing dorsal irritation from shoe gear Vascular: Weakly DP and PT pulses, biphasic Doppler pulses. Edema: Currently no edema. Continue to elevate lower extremities at times of rest Infection: No signs of infection Pain: May take [id number] Tylenol for discomfort Host factors: DM type II with peripheral polyneuropathy, noncompliance in shoe gear/barefoot status, HTN, obesity I answered all the patient's questions. To return to the wound healing center in 1 week or call sooner if the patient has any questions or concerns.
== END 2024-01-06 23:59 | disposition home or self-care (01) ==
LOC: WC 11:15
PROVIDERS: PCP Family Medicine; Referring Provider Family Medicine; Visit Provider Student in an Organized Health Care Education/Training Program
DX: E11.621 Type 2 diabetes mellitus with foot ulcer (principal); L97.512 Non-pressure chronic ulcer of other part of right foot with fat layer exposed; E11.42 Type 2 diabetes mellitus with diabetic polyneuropathy; I10 Essential (primary) hypertension; E66.9 Obesity, unspecified
CPT/HCPCS: 11042

== ENCOUNTER 2024-02-02 11:30 | Outpatient (RCR) | payer MEDICARE, MEDICAID, SELFPAY ==
[2024-01-07 01:14] VITALS: BP 128/65; PULSE 91; RESP 18; TEMP 35.8; BMI 32.8
[2024-01-12 11:21] VITALS: BP 133/79; PULSE 93; RESP 18; TEMP 36.1; BMI 32.8
--- NOTE | 2024-01-12 18:22 | PCM.WC.PN ---
History of Present Illness Date of Service: 01/12/24 Chief Complaint: Left foot ulceration History of Wound: Patient is a 73-year-old female with PMHx of diabetes mellitus type 2, HTN, obesity who presents to the wound care center with new ulceration of the dorsal aspect of the left foot. Patient states that 3 weeks ago her foot began to swell and overnight developed a blister to the top of the left foot which subsequently ruptured and broke down into a ulceration. She did follow with her PCP Dr. Felder. Patient was prescribed antibiotics however she does not know what they were but did complete antibiotic course. Patient has been applying antibiotic ointment and Band-Aids to the top of the foot. Patient feels that her wound is not progressing and healing. Her most recent A1c on 11/23/2023 was 7.5%. Patient states that she was down around 6.4% however this has gone up since last year. Patient continues to wear shoe gear but states she goes barefoot inside of her house and refuses to wear shoe gear inside house. She denies constitutional symptoms. Denies further complaints. Subjective Subjective This is a 73-year-old female who presents to the wound care center today for a follow-up of a left dorsal foot ulceration. She states that she has been continuing to change the dressing daily with the collagen powder. States that she can see that the wound continuing to get smaller. States she has been on 3 different times with the insurance company and continues to state they deny coverage for the advanced wound care product. Denies constitutional symptoms. Denies further complaints. Objective Data Objective Data Vital Signs: Vital Signs Temp Pulse Resp BP 96.9 F L 93 18 133/79 H 01/12/24 11:21 01/12/24 11:21 01/12/24 11:21 01/12/24 11:21 Weight: 92.079 kg Body Mass Index (BMI) 32.8 Physical Exam Const alert, oriented x3 and no apparent distress General Appearance: cooperative HEENT normocephalic Eyes General Eye: normal appearance of both eyes Neck General: normal visual inspection Lymph Lymphatic: no lymphadenopathy noted and no lymphedema noted Resp normal respiratory effort Cardio regular rate and regular rhythm Extremity normal capillary refill, no joint enlargement, no calf tenderness and no pedal edema Extremity Narrative: Vascular: DP and PT pulses weakly palpable bilateral. CFT less than 5 seconds to digits of foot bilateral. Doppler demonstrates biphasic pedal pulses bilateral. Normal temperature gradient. Hair growth is diminished to the digits of the foot bilateral. Neurologic: Gross sensation intact. Light sensation intact. Protective sensation is diminished to bilateral foot consistent with diabetic peripheral polyneuropathy. Dermatological: Skin is mildly xerotic on the plantar aspect. Skin demonstrates normal turgor. Negative Stemmer sign second digit bilateral. Dorsal aspect of the left foot demonstrates full-thickness ulceration to the level of the subcutaneous tissue with healthy granular base. No erythema, no malodor, no purulent drainage, no lymphangitis/lymphedema, no palpable fluctuance/bogginess noted. Musculoskeletal: Muscle strength 5 of 5 age-appropriate bilateral. Decreased range of motion of the ankle joint dorsiflexion with the knee extended without pain or crepitus bilateral. Decreased range of motion of the first metatarsophalangeal joint in dorsiflexion without pain or crepitus bilateral. Skin no rashes or lesions noted, skin turgor normal and no jaundice Neuro moves all extremities Debridement Note Debridement Note Wound debrided: Left dorsal foot Laterality: Left Wound Grade/Stage: Kaur stage I Type of Debridement: Excisional debridement Anesthesia Used: 5% Lidocaine Gel Depth: Down to and including healthy tissue and in the subcutaneous layer Percentage of wound debrided: 100 Instrument Used: 3mm curette Tissue Removed: Fibrous, devitalized subcutaneous, biofilm, slough Severity: Fat Layer Exposed Amount of bleeding with debridement: Mild Bleeding Controlled with: Compression and gauze Patient tolerated procedure: Patient tolerated procedure well Post-Debridement Measurements and Additional Note: Post-Debridement Measurements/Treatment - Nurse 1 - General Ulcer Assessment Start: 01/12/24 11:20 Freq: Status: Active Protocol: [email or web address] Activity Type Activity Date Activity User E-sign Co-sign Detail Recorded Client Recorded Date Recorded By Document 01/12/24 11:21 DL [email or web address] 01/12/24 11:25 DL 01/12/24 11:21 - Today's Visit Information Type of service Follow-up Visit (Physician/[facility] [employer] ) Arrival Mode Ambulatory Transfer Assistance None Patient Identification Verified (Name & Yes ) Patient Requires Transmission-Based No Precautions Height and Weight Body Mass Index (BMI) 32.8 BMI Classification Obese Vital Signs Temperature (97.8 F-99.1 F) 96.9 F L Temperature Source Temporal Pulse Rate (60-100) 93 Pulse Location Monitor Respiratory Rate (12-18) 18 Respiratory rate source Observation Blood Pressure (90/60-120/80) 133/79 H Blood Pressure Mean (mm Hg) 97 Source Monitor History Since Last Visit- (Skip if this is Patient's initial visit) Have you changed medications since your No last visit? Any new allergies or adverse reactions No Had a fall/change in ADL's that may No increase risk of falls Signs or symptoms of abuse and/or No neglect since last visit Have you been in the hospital since your No last visit? Has dressing in place as prescribed Yes Has compression in place as prescribed No Has offloadiing in place as prescribed Yes Experienced any changes in pain level or No management Pain Scale: 0-10 Numeric Is Patient Pain Free? Yes WC - Nurse 1 - General Ulcer Measurement Start: 01/12/24 11:20 Freq: Status: Active Protocol: Activity Type Activity Date Activity User E-sign Co-sign Detail Recorded Client Recorded Date Recorded By Document 01/12/24 11:21 DL [email or web address] 01/12/24 11:25 DL 01/12/24 11:21 Wound Center Nurse 1 1. L foot dorsal -Current Size (cm) - Length 0.8 -Current Size (cm) - Width 0.5 -Current Size (cm) - Depth 0.4 -Total Square Cm 0.40 -Exudate Amt Medium -Exudate Type Serosanguineous -Wound Margin Distinct, Outline Attached -Granulation Amt Large (67-100%) -Granulation Quality Red -Necrosis Amt Small (1-33%) -Necrotic Tissue Type Adherent Slough -Structure Exposed N/A -Texture (Stormy-wound Skin Appearance) Scarring -Moisture (Stormy-wound Skin Appearance) No Abnormality -Color (Stormy-wound Skin Appearance) No Abnormality -Temperature (Stormy-wound Skin No Abnormality Appearance) (Pt Warm) -Tenderness on Palpation (Stormy-wound No Skin Appearance) -Ulcer Cleansing Soap and Water -Foul Odor after Cleansing No -Anesthetic Used 5% Lidocaine Gel WC - Nurse 2 - General Ulcer CM Notes Start: 01/12/24 11:20 Freq: Status: Active Protocol: Activity Type Activity Date Activity User E-sign Co-sign Detail Recorded Client Recorded Date Recorded By Document 01/12/24 12:12 [facility] 01/12/24 12:14 [facility] 01/12/24 12:12 Wound Center Nurse 2 -Time 12:12 -Correct Patient Yes -Correct Side, Site, Position Yes -Correct Procedure Yes -Procedure Performed Yes -Type of Procedure Debridement -Clinical Debridement Subcutaneous -Tissue Removed Subcutaneous -Post Debridement (cm) - Length 0.9 -Post Debridement (cm) - Width 0.5 -Post Debridement (cm) - Depth 0.2 -Total Square (Post) (cm) 0.45 -Area of Debridement (cm) - Length 0.9 -Area of Debridement (cm) - Width 0.5 -Total Square (Area) (cm) 0.45 -Tunneling No -Undermining/Tunneling No -Circular Undermining No -Wound/Ulcer Outcome Not Healed -Ulcer Cleansing Rinsed/ Irrigated with Saline -Foul Odor after Cleansing No -Bioengineered Tissue No -Bleeding Controlled with Pressure -Treatment Response Procedure Tolerated Well -Offloading No -Debridement - Subq, 1st 20sq cm Yes Pain Scale: 0-10 Numeric Is Patient Pain Free? Yes - Nurse 3 - General Ulcer D/C NN Start: 01/12/24 11:20 Freq: Status: Active Protocol: Activity Type Activity Date Activity User E-sign Co-sign Detail Recorded Client Recorded Date Recorded By Document 01/12/24 12:26 wound center 01/12/24 12:27 01/12/24 12:26 Wound Care Center Nurse 3 1. L foot dorsal -Ulcer Cleansing Rinsed/ Irrigated with Saline -Primary Dressing Applied AMD Dressing 4x4,C Hydrogel ($),Collagen Powder ($) -Primary Dressing Covered/Secured with Dry Gauze,Dry Gauze & Roll Gauze,Secured with Tape -AMD Dressing 4x4 2 Pain Scale: 0-10 Numeric Is Patient Pain Free? Yes WC - Visit Discharge Discharge Condition Stable Ambulatory Status Ambulatory Transportation Private Auto Medication Reconcilliation completed & No provided to patient/care provider Clinical Summary of Care Provided Yes Assessment/Plan Assessment/Plan (1) Non-pressure chronic ulcer of other part of left foot with fat layer exposed: CODE(S): L97.522 - Non-pressure chronic ulcer of other part of left foot with fat layer exposed (2) Type 2 diabetes mellitus without complications: CODE(S): E11.9 - Type 2 diabetes mellitus without complications (3) Type 2 diabetes mellitus with foot ulcer: CODE(S): E11.621 - Type 2 diabetes mellitus with foot ulcer; L97.509 - Non-pressure chronic ulcer of other part of unspecified foot with unspecified severity (4) Essential (primary) hypertension: CODE(S): I10 - Essential (primary) hypertension (5) Obesity, unspecified: CODE(S): E66.9 - Obesity, unspecified PLAN: Plan Patient seen and evaluated Ulceration had been present for 3 weeks treated at home by patient and by PCP prior to referral to wound care center. Dorsal aspect of the left foot demonstrates full-thickness ulceration to the level of the subcutaneous tissue with healthy granular base. Wound is granulating in well. No signs of infection Ulceration underwent debridement as noted in the clinical panel above. Ulceration postdebridement measures 0.9 cm x 0.5 cm x 0.2 cm. No signs of infection. Collagen powder, hydrogel, and PHMB dressing applied to the foot. She was instructed to change dressing daily. Discussed washing with Dakin's prior to her applying the collagen powder. She was then offloaded in surgical shoe to the left foot to prevent dorsal irritation secondary to shoe gear strapping/laces. There is continued reduction in ulcerative size versus previous visit. Ulceration is granulating in well and there is no remaining undermining. Applied for advanced wound care product, EpiFix for application, insurance has denied stating not medically necessary. Previous A1c 7.5% on 11/23/2023. Discussed continued glycemic control to bring A1c down with goal of 6.5% to optimize wound healing. Encourage lifestyle modification with daily exercise. Discussed proper diabetic diet today. Discussed adequate protein intake to continue to aid in wound healing. Gage supplementation was also recommended. Long discussion was had with patient on 12/01/23 about the necessity to not go barefoot about her house as she has lack of protective sensation secondary to diabetic peripheral polyneuropathy. Discussed that socks include barefoot. Encouraged shoe gear to be worn at all times. Supportive shoe gear was discussed with the patient today. Patient adamantly states I am not can wear shoes in my house, I go barefoot everywhere. Discussed continued progression of ulceration with possible infection given lack of sensation increases her risk of lower extremity amputation. Patient remains adamant stating will this is the first wound I have ever had on my feet, so I think I am doing okay. Given our discussion today it is obvious patient will not continue to follow recommended advice for shoe gear. Discussed signs and symptoms of infection. Discussed with the patient that if she begins to have increasing redness about the ulcerative site that moves up the foot/leg, purulent drainage from the wound site, increasing foul odor from the wound, or if she experiences fever greater than 101 degree accompanied by nausea, vomiting, chills that these are signs of a progressing infection and she should report to the ED to receive IV antibiotics and further evaluation. She voices understanding of this today. The following work up and care recommendations were made: Dressing: Wash with Dakin's. Apply collagen powder, hydrogel, PHMB dressing. Change dressing daily. Wash: Soap and water Tissue growth optimization: Collagen powder/hydrogel/PHMB dressing Offload: Surgical shoe to left foot to offload preventing dorsal irritation from shoe gear Vascular: Weakly DP and PT pulses, biphasic Doppler pulses. Edema: Currently no edema. Continue to elevate lower extremities at times of rest Infection: No signs of infection Pain: May take [id number] Tylenol for discomfort Host factors: DM type II with peripheral polyneuropathy, noncompliance in shoe gear/barefoot status, HTN, obesity I answered all the patient's questions. To return to the wound healing center in 1 week or call sooner if the patient has any questions or concerns.
[2024-01-19 11:22] VITALS: BP 141/85; PULSE 93; RESP 16; TEMP 36.7; BMI 32.8
--- NOTE | 2024-01-19 11:41 | PCM.WC.PN ---
History of Present Illness Date of Service: 01/19/24 Chief Complaint: Left foot ulceration History of Wound: Patient is a 73-year-old female with PMHx of diabetes mellitus type 2, HTN, obesity who presents to the wound care center with new ulceration of the dorsal aspect of the left foot. Patient states that 3 weeks ago her foot began to swell and overnight developed a blister to the top of the left foot which subsequently ruptured and broke down into a ulceration. She did follow with her PCP Dr. Felder. Patient was prescribed antibiotics however she does not know what they were but did complete antibiotic course. Patient has been applying antibiotic ointment and Band-Aids to the top of the foot. Patient feels that her wound is not progressing and healing. Her most recent A1c on 11/23/2023 was 7.5%. Patient states that she was down around 6.4% however this has gone up since last year. Patient continues to wear shoe gear but states she goes barefoot inside of her house and refuses to wear shoe gear inside house. She denies constitutional symptoms. Denies further complaints. Subjective Subjective This is a 73-year-old female who presents to the wound care center today for a follow-up of a left dorsal foot ulceration. She states that she has been continuing to change the dressing daily with the collagen powder. States that she can see that the wound continuing to get smaller and is nearing healing. States she has finally got a letter with denial and reasoning from insurance [employer] for the advanced wound care product. Denies constitutional symptoms. Denies further complaints. Objective Data Objective Data Vital Signs: Vital Signs Temp Pulse Resp BP 98.0 F 93 16 141/85 H 01/19/24 11:22 01/19/24 11:22 01/19/24 11:22 01/19/24 11:22 Weight: 92.079 kg Body Mass Index (BMI) 32.8 Physical Exam Const alert, oriented x3 and no apparent distress General Appearance: cooperative HEENT normocephalic Eyes General Eye: normal appearance of both eyes Neck General: normal visual inspection Lymph Lymphatic: no lymphadenopathy noted and no lymphedema noted Resp normal respiratory effort Cardio regular rate and regular rhythm Extremity normal capillary refill, no joint enlargement, no calf tenderness and no pedal edema Extremity Narrative: Vascular: DP and PT pulses weakly palpable bilateral. CFT less than 5 seconds to digits of foot bilateral. Doppler demonstrates biphasic pedal pulses bilateral. Normal temperature gradient. Hair growth is diminished to the digits of the foot bilateral. Neurologic: Gross sensation intact. Light sensation intact. Protective sensation is diminished to bilateral foot consistent with diabetic peripheral polyneuropathy. Dermatological: Skin is mildly xerotic on the plantar aspect. Skin demonstrates normal turgor. Negative Stemmer sign second digit bilateral. Dorsal aspect of the left foot demonstrates full-thickness ulceration to the level of the subcutaneous tissue with healthy granular base. No erythema, no malodor, no purulent drainage, no lymphangitis/lymphedema, no palpable fluctuance/bogginess noted. Musculoskeletal: Muscle strength 5 of 5 age-appropriate bilateral. Decreased range of motion of the ankle joint dorsiflexion with the knee extended without pain or crepitus bilateral. Decreased range of motion of the first metatarsophalangeal joint in dorsiflexion without pain or crepitus bilateral. Skin no rashes or lesions noted, skin turgor normal and no jaundice Neuro moves all extremities Debridement Note Debridement Note Wound debrided: Left dorsal foot Laterality: Left Wound Grade/Stage: Kaur stage I Type of Debridement: Excisional debridement Anesthesia Used: 5% Lidocaine Gel Depth: Down to and including healthy tissue and in the subcutaneous layer Percentage of wound debrided: 100 Instrument Used: 3mm curette Tissue Removed: Fibrous, devitalized subcutaneous, biofilm, slough Severity: Fat Layer Exposed Amount of bleeding with debridement: Mild Bleeding Controlled with: Compression and gauze Patient tolerated procedure: Patient tolerated procedure well Post-Debridement Measurements and Additional Note: Post-Debridement Measurements/Treatment - Nurse 1 - General Ulcer Assessment Start: 01/12/24 11:20 Freq: Status: Active Protocol: MACIE Activity Type Activity Date Activity User E-sign Co-sign Detail Recorded Client Recorded Date Recorded By Document 01/12/24 11:21 DL [email or web address] 01/12/24 11:25 DL Document 01/19/24 11:22 JF 0000 01/19/24 11:29 JF 01/12/24 01/19/24 11:21 11:22 - Today's Visit Information Type of service Follow-up Visit Follow-up Visit (Physician/SOLAR INSTALLATION MANAGER (Physician/SOLAR INSTALLATION MANAGER ) ) Arrival Mode Ambulatory Ambulatory Transfer Assistance None Patient Identification Verified (Name & Yes Yes ) Patient Requires Transmission-Based No No Precautions Height and Weight Body Mass Index (BMI) 32.8 32.8 BMI Classification Obese Obese Vital Signs Temperature (97.8 F-99.1 F) 96.9 F L 98.0 F Temperature Source Temporal Temporal Pulse Rate (60-100) 93 93 Pulse Location Monitor Monitor Respiratory Rate (12-18) 18 16 Respiratory rate source Observation Observation Blood Pressure (90/60-120/80) 133/79 H 141/85 H Blood Pressure Mean (mm Hg) 97 103 Source Monitor Monitor Position Semi-Fowlers Blood Pressure Location Left Arm History Since Last Visit- (Skip if this is Patient's initial visit) Have you changed medications since your No No last visit? Any new allergies or adverse reactions No No Had a fall/change in ADL's that may No No increase risk of falls Signs or symptoms of abuse and/or No No neglect since last visit Have you been in the hospital since your No No last visit? Has dressing in place as prescribed Yes Yes Has compression in place as prescribed No No Has offloadiing in place as prescribed Yes Experienced any changes in pain level or No No management Left Footwear Surgical Shoe with pressure relief insole Right Footwear Regular Shoe Pain Scale: 0-10 Numeric Is Patient Pain Free? Yes Yes WC - Nurse 1 - General Ulcer Measurement Start: 01/12/24 11:20 Freq: Status: Active Protocol: Activity Type Activity Date Activity User E-sign Co-sign Detail Recorded Client Recorded Date Recorded By Document 01/12/24 11:21 DL [email or web address] 01/12/24 11:25 DL Document 01/19/24 11:22 0000 01/19/24 11:29 01/12/24 01/19/24 11:21 11:22 Wound Center Nurse 1 1. L foot dorsal -Combined with other wound No -Current Size (cm) - Length 0.8 0.1 -Current Size (cm) - Width 0.5 0.1 -Current Size (cm) - Depth 0.4 0.1 -Total Square Cm 0.40 0.01 -Photo Taken No -Tunneling No -Undermining/Tunneling No -Circular Undermining No -Exudate Amt Medium None Present -Exudate Type Serosanguineous -Wound Margin Distinct, Flat & Intact Outline Attached -Granulation Amt Large (67-100%) Small (1-33%) -Granulation Quality [place] -Slough/Fibrin No -Necrosis Amt Small (1-33%) -Necrotic Tissue Type Adherent Slough -Structure Exposed N/A N/A -Texture (Stormy-wound Skin Appearance) Scarring Assessed -Moisture (Stormy-wound Skin Appearance) No Abnormality Assessed,Dry/ Scaly -Color (Stormy-wound Skin Appearance) No Abnormality Assessed -Temperature (Stormy-wound Skin No Abnormality No Abnormality Appearance) (Pt Warm) (Pt Warm) -Tenderness on Palpation (Stormy-wound No No Skin Appearance) -Ulcer Cleansing Soap and Water Rinsed/ Irrigated with Saline -Foul Odor after Cleansing No No -Anesthetic Used 5% Lidocaine 5% Lidocaine Gel Gel Lower Limb Edema Present NA WC - Nurse 2 - General Ulcer CM Notes Start: 01/12/24 11:20 Freq: Status: Active Protocol: Activity Type Activity Date Activity User E-sign Co-sign Detail Recorded Client Recorded Date Recorded By Document 01/12/24 12:12 [facility] 01/12/24 12:14 [facility] Document 01/19/24 11:30 [facility] 01/19/24 11:38 [facility] 01/12/24 01/19/24 12:12 11:30 Wound Center Nurse 2 1. L foot dorsal -Time 12:12 11:31 -Correct Patient Yes -Correct Side, Site, Position Yes -Correct Procedure Yes -Procedure Performed Yes -Type of Procedure Debridement -Clinical Debridement Subcutaneous -Tissue Removed Subcutaneous -Post Debridement (cm) - Length 0.9 0.6 -Post Debridement (cm) - Width 0.5 0.3 -Post Debridement (cm) - Depth 0.2 0.2 -Total Square (Post) (cm) 0.45 0.18 -Area of Debridement (cm) - Length 0.9 0.6 -Area of Debridement (cm) - Width 0.5 0.3 -Total Square (Area) (cm) 0.45 0.18 -Tunneling No -Undermining/Tunneling No -Circular Undermining No -Wound/Ulcer Outcome Not Healed -Ulcer Cleansing Rinsed/ Irrigated with Saline -Foul Odor after Cleansing No -Bioengineered Tissue No -Bleeding Controlled with Pressure -Treatment Response Procedure Tolerated Well -Offloading No -Debridement - Subq, 1st 20sq cm Yes Pain Scale: 0-10 Numeric Is Patient Pain Free? Yes Yes - Nurse 3 - General Ulcer D/C NN Start: 01/12/24 11:20 Freq: Status: Active Protocol: Activity Type Activity Date Activity User E-sign Co-sign Detail Recorded Client Recorded Date Recorded By Document 01/12/24 12:26 RB wound center 01/12/24 12:27 RB Document 01/19/24 11:40 DS 1 01/19/24 11:41 DS 01/12/24 01/19/24 12:26 11:40 Wound Care Center Nurse 3 1. L foot dorsal -Ulcer Cleansing Rinsed/ Rinsed/ Irrigated with Irrigated with Saline Saline -Primary Dressing Applied AMD Dressing AMD Dressing 4x4,C Hydrogel 4x4,C Hydrogel ($),Collagen ($) Powder ($) -Primary Dressing Covered/Secured with Dry Gauze,Dry Dry Gauze & Gauze & Roll Roll Gauze, Gauze,Secured Secured with with Tape Tape -AMD Dressing 4x4 2 1 Pain Scale: 0-10 Numeric Is Patient Pain Free? Yes Yes - Visit Discharge Discharge Condition Stable Stable Ambulatory Status Ambulatory Ambulatory Transportation Private Auto Private Auto Medication Reconcilliation completed & No Yes provided to patient/care provider Clinical Summary of Care Provided Yes Yes Assessment/Plan Assessment/Plan (1) Non-pressure chronic ulcer of other part of left foot with fat layer exposed: CODE(S): L97.522 - Non-pressure chronic ulcer of other part of left foot with fat layer exposed (2) Type 2 diabetes mellitus without complications: CODE(S): E11.9 - Type 2 diabetes mellitus without complications (3) Type 2 diabetes mellitus with foot ulcer: CODE(S): E11.621 - Type 2 diabetes mellitus with foot ulcer; L97.509 - Non-pressure chronic ulcer of other part of unspecified foot with unspecified severity (4) Essential (primary) hypertension: CODE(S): I10 - Essential (primary) hypertension (5) Obesity, unspecified: CODE(S): E66.9 - Obesity, unspecified PLAN: Plan Patient seen and evaluated Ulceration had been present for 3 weeks treated at home by patient and by PCP prior to referral to wound care center. Dorsal aspect of the left foot demonstrates full-thickness ulceration to the level of the subcutaneous tissue with healthy granular base. Wound is granulating in well. No signs of infection Ulceration underwent debridement as noted in the clinical panel above. Ulceration postdebridement measures 0.6 cm x 0.3 cm x 0.2 cm. No signs of infection. Collagen powder, hydrogel, and PHMB dressing applied to the foot. She was instructed to change dressing daily. Discussed washing with Dakin's prior to her applying the collagen powder. She was then offloaded in surgical shoe to the left foot to prevent dorsal irritation secondary to shoe gear strapping/laces. There is continued reduction in ulcerative size versus previous visit. Ulceration is granulating in well and is nearing healed status. Applied for advanced wound care product, EpiFix for application, insurance has denied stating not medically necessary. Previous A1c 7.5% on 11/23/2023. Discussed continued glycemic control to bring A1c down with goal of 6.5% to optimize wound healing. Encourage lifestyle modification with daily exercise. Discussed proper diabetic diet today. Discussed adequate protein intake to continue to aid in wound healing. Gage supplementation was also recommended. Long discussion was had with patient on 12/01/23 about the necessity to not go barefoot about her house as she has lack of protective sensation secondary to diabetic peripheral polyneuropathy. Discussed that socks include barefoot. Encouraged shoe gear to be worn at all times. Supportive shoe gear was discussed with the patient today. Patient adamantly states I am not can wear shoes in my house, I go barefoot everywhere. Discussed continued progression of ulceration with possible infection given lack of sensation increases her risk of lower extremity amputation. Patient remains adamant stating will this is the first wound I have ever had on my feet, so I think I am doing okay. Given our discussion today it is obvious patient will not continue to follow recommended advice for shoe gear. Discussed signs and symptoms of infection. Discussed with the patient that if she begins to have increasing redness about the ulcerative site that moves up the foot/leg, purulent drainage from the wound site, increasing foul odor from the wound, or if she experiences fever greater than 101 degree accompanied by nausea, vomiting, chills that these are signs of a progressing infection and she should report to the ED to receive IV antibiotics and further evaluation. She voices understanding of this today. The following work up and care recommendations were made: Dressing: Wash with Dakin's. Apply collagen powder, hydrogel, PHMB dressing. Change dressing daily. Wash: Soap and water Tissue growth optimization: Collagen powder/hydrogel/PHMB dressing Offload: Surgical shoe to left foot to offload preventing dorsal irritation from shoe gear Vascular: Weakly DP and PT pulses, biphasic Doppler pulses. Edema: Currently no edema. Continue to elevate lower extremities at times of rest Infection: No signs of infection Pain: May take [id number] Tylenol for discomfort Host factors: DM type II with peripheral polyneuropathy, noncompliance in shoe gear/barefoot status, HTN, obesity I answered all the patient's questions. To return to the wound healing center in 1 week or call sooner if the patient has any questions or concerns.
[2024-01-26 11:25] VITALS: BP 93/60; PULSE 91; RESP 20; TEMP 36.4; BMI 32.8
--- NOTE | 2024-01-26 13:20 | PCM.WC.PN ---
History of Present Illness Date of Service: 01/26/24 Chief Complaint: Left foot ulceration History of Wound: Patient is a 73-year-old female with PMHx of diabetes mellitus type 2, HTN, obesity who presents to the wound care center with new ulceration of the dorsal aspect of the left foot. Patient states that 3 weeks ago her foot began to swell and overnight developed a blister to the top of the left foot which subsequently ruptured and broke down into a ulceration. She did follow with her PCP Dr. Felder. Patient was prescribed antibiotics however she does not know what they were but did complete antibiotic course. Patient has been applying antibiotic ointment and Band-Aids to the top of the foot. Patient feels that her wound is not progressing and healing. Her most recent A1c on 11/23/2023 was 7.5%. Patient states that she was down around 6.4% however this has gone up since last year. Patient continues to wear shoe gear but states she goes barefoot inside of her house and refuses to wear shoe gear inside house. She denies constitutional symptoms. Denies further complaints. Subjective Subjective This is a 73-year-old female who presents to the wound care center today for a follow-up of a left dorsal foot ulceration. She states that she has been continuing to change the dressing daily with the collagen powder. States that she can see that the wound continuing to get smaller and is almost healed. Denies constitutional symptoms. Denies further complaints. Objective Data Objective Data Vital Signs: Vital Signs Temp Pulse Resp BP 97.6 F L 91 20 H 93/60 01/26/24 11:25 01/26/24 11:25 01/26/24 11:25 01/26/24 11:25 Weight: 92.079 kg Body Mass Index (BMI) 32.8 Physical Exam Const alert, oriented x3 and no apparent distress General Appearance: cooperative HEENT normocephalic Eyes General Eye: normal appearance of both eyes Neck General: normal visual inspection Lymph Lymphatic: no lymphadenopathy noted and no lymphedema noted Resp normal respiratory effort Cardio regular rate and regular rhythm Extremity normal capillary refill, no joint enlargement, no calf tenderness and no pedal edema Extremity Narrative: Vascular: DP and PT pulses weakly palpable bilateral. CFT less than 5 seconds to digits of foot bilateral. Doppler demonstrates biphasic pedal pulses bilateral. Normal temperature gradient. Hair growth is diminished to the digits of the foot bilateral. Neurologic: Gross sensation intact. Light sensation intact. Protective sensation is diminished to bilateral foot consistent with diabetic peripheral polyneuropathy. Dermatological: Skin is mildly xerotic on the plantar aspect. Skin demonstrates normal turgor. Negative Stemmer sign second digit bilateral. Dorsal aspect of the left foot demonstrates full-thickness ulceration to the level of the subcutaneous tissue with healthy granular base. No erythema, no malodor, no purulent drainage, no lymphangitis/lymphedema, no palpable fluctuance/bogginess noted. Musculoskeletal: Muscle strength 5 of 5 age-appropriate bilateral. Decreased range of motion of the ankle joint dorsiflexion with the knee extended without pain or crepitus bilateral. Decreased range of motion of the first metatarsophalangeal joint in dorsiflexion without pain or crepitus bilateral. Skin no rashes or lesions noted, skin turgor normal and no jaundice Neuro moves all extremities Debridement Note Debridement Note Wound debrided: Left dorsal foot Laterality: Left Wound Grade/Stage: Kaur stage I Type of Debridement: Excisional debridement Anesthesia Used: 5% Lidocaine Gel Depth: Down to and including healthy tissue and in the subcutaneous layer Percentage of wound debrided: 100 Instrument Used: - (1 mm curette) Tissue Removed: Fibrous, devitalized subcutaneous, biofilm, slough Severity: Fat Layer Exposed Amount of bleeding with debridement: Mild Bleeding Controlled with: Compression and gauze Patient tolerated procedure: Patient tolerated procedure well Post-Debridement Measurements and Additional Note: Post-Debridement Measurements/Treatment MADELINE - Nurse 1 - General Ulcer Assessment Start: 01/12/24 11:20 Freq: Status: Active Protocol: MACIE Activity Type Activity Date Activity User E-sign Co-sign Detail Recorded Client Recorded Date Recorded By Document 01/12/24 11:21 DL [email or web address] 01/12/24 11:25 DL Document 01/19/24 11:22 JF 0000 01/19/24 11:29 Document 01/26/24 11:25 DL [email or web address] 01/26/24 11:31 DL Edit Result 01/26/24 11:25 DL (1) [id number] 01/26/24 11:38 DL (1) Pulse Rate (60-100) => 91 Pulse Location => Monitor Blood Pressure (90/60-120/80) => 93/60 Blood Pressure Mean (mm Hg) => 71 Source => Monitor 01/12/24 01/19/24 01/26/24 11:21 11:22 11:25 WC - Today's Visit Information Type of service Follow-up Visit Follow-up Visit Follow-up Visit (Physician/REFLESHER (Physician/REFLESHER (Physician/REFLESHER ) ) ) Arrival Mode Ambulatory Ambulatory Ambulatory Transfer Assistance None None Patient Identification Verified (Name & Yes Yes Yes ) Patient Requires Transmission-Based No No No Precautions Height and Weight Body Mass Index (BMI) 32.8 32.8 32.8 BMI Classification Obese Obese Obese Vital Signs Temperature (97.8 F-99.1 F) 96.9 F L 98.0 F 97.6 F L Temperature Source Temporal Temporal Temporal Pulse Rate (60-100) 93 93 91 Pulse Location Monitor Monitor Monitor Respiratory Rate (12-18) 18 16 20 H Respiratory rate source Observation Observation Observation Blood Pressure (90/60-120/80) 133/79 H 141/85 H 93/60 Blood Pressure Mean (mm Hg) 97 103 71 Source Monitor Monitor Monitor Position Semi-Fowlers Blood Pressure Location Left Arm History Since Last Visit- (Skip if this is Patient's initial visit) Have you changed medications since your No No No last visit? Any new allergies or adverse reactions No No No Had a fall/change in ADL's that may No No No increase risk of falls Signs or symptoms of abuse and/or No No No neglect since last visit Have you been in the hospital since your No No No last visit? Has dressing in place as prescribed Yes Yes Yes Has compression in place as prescribed No No N/A Has offloadiing in place as prescribed Yes Yes Experienced any changes in pain level or No No No management Left Footwear Surgical Shoe with pressure relief insole Right Footwear Regular Shoe Pain Scale: 0-10 Numeric Is Patient Pain Free? Yes Yes Yes - Nurse 1 - General Ulcer Measurement Start: 01/12/24 11:20 Freq: Status: Active Protocol: Activity Type Activity Date Activity User E-sign Co-sign Detail Recorded Client Recorded Date Recorded By Document 01/12/24 11:21 DL [email or web address] 01/12/24 11:25 DL Document 01/19/24 11:22 JF 0000 01/19/24 11:29 JF Document 01/26/24 11:25 DL [email or web address] 01/26/24 11:31 DL 01/12/24 01/19/24 01/26/24 11:21 11:22 11:25 Wound Center Nurse 1 1. L foot dorsal -Combined with other wound No -Current Size (cm) - Length 0.8 0.1 0.1 -Current Size (cm) - Width 0.5 0.1 0.1 -Current Size (cm) - Depth 0.4 0.1 0.1 -Total Square Cm 0.40 0.01 0.01 -Photo Taken No Yes -Tunneling No -Undermining/Tunneling No -Circular Undermining No -Exudate Amt Medium None Present Small -Exudate Type Serosanguineous -Wound Margin Distinct, Flat & Intact Distinct, Outline Outline Attached Attached -Granulation Amt Large (67-100%) Small (1-33%) Large (67-100%) -Granulation Quality Red [place] -Slough/Fibrin No -Necrosis Amt Small (1-33%) None Present (0 %) -Necrotic Tissue Type Adherent Slough -Structure Exposed N/A N/A N/A -Texture (Stormy-wound Skin Appearance) Scarring Assessed Scarring -Moisture (Stormy-wound Skin Appearance) No Abnormality Assessed,Dry/ No Abnormality Scaly -Color (Stormy-wound Skin Appearance) No Abnormality Assessed No Abnormality -Temperature (Stormy-wound Skin No Abnormality No Abnormality No Abnormality Appearance) (Pt Warm) (Pt Warm) (Pt Warm) -Tenderness on Palpation (Stormy-wound No No No Skin Appearance) -Ulcer Cleansing Soap and Water Rinsed/ Rinsed/ Irrigated with Irrigated with Saline Saline -Foul Odor after Cleansing No No No -Anesthetic Used 5% Lidocaine 5% Lidocaine 5% Lidocaine Gel Gel Gel Lower Limb Edema Present NA WC - Nurse 2 - General Ulcer CM Notes Start: 01/12/24 11:20 Freq: Status: Active Protocol: Activity Type Activity Date Activity User E-sign Co-sign Detail Recorded Client Recorded Date Recorded By Document 01/12/24 12:12 [facility] 01/12/24 12:14 BMF Document 01/19/24 11:30 [facility] 01/19/24 11:38 BMF Edit Result 01/19/24 11:30 BMF (1) [id number] 01/19/24 12:13 BMF Document 01/26/24 11:55 [facility] 01/26/24 12:01 [facility] (1) 1. L foot dorsal - Correct Patient => Yes - Correct Side, Site, Position => Yes - Correct Procedure => Yes - Procedure Performed => Yes - Type of Procedure => Debridement - Clinical Debridement => Subcutaneous - Tissue Removed => Subcutaneous - Tunneling => No - Undermining/Tunneling => No - Circular Undermining => No - Wound/Ulcer Outcome => Not Healed - Ulcer Cleansing => Rinsed/Irrigated => with Saline - Foul Odor after Cleansing => No - Bioengineered Tissue => No - Bleeding Controlled with => Pressure - Treatment Response => Procedure => Tolerated Well - Debridement - Subq, 1st 20sq cm => Yes 01/12/24 01/19/24 01/26/24 12:12 11:30 11:55 Wound Center Nurse 2 1. L foot dorsal -Time 12:12 11:31 11:57 -Correct Patient Yes Yes Yes -Correct Side, Site, Position Yes Yes Yes -Correct Procedure Yes Yes Yes -Procedure Performed Yes Yes Yes -Type of Procedure Debridement Debridement Debridement -Clinical Debridement Subcutaneous Subcutaneous Subcutaneous -Tissue Removed Subcutaneous Subcutaneous Subcutaneous -Post Debridement (cm) - Length 0.9 0.6 0.4 -Post Debridement (cm) - Width 0.5 0.3 0.2 -Post Debridement (cm) - Depth 0.2 0.2 0.1 -Total Square (Post) (cm) 0.45 0.18 0.08 -Area of Debridement (cm) - Length 0.9 0.6 0.4 -Area of Debridement (cm) - Width 0.5 0.3 0.2 -Total Square (Area) (cm) 0.45 0.18 0.08 -Tunneling No No No -Undermining/Tunneling No No No -Circular Undermining No No No -Wound/Ulcer Outcome Not Healed Not Healed Not Healed -Ulcer Cleansing Rinsed/ Rinsed/ Rinsed/ Irrigated with Irrigated with Irrigated with Saline Saline Saline -Foul Odor after Cleansing No No No -Bioengineered Tissue No No No -Bleeding Controlled with Pressure Pressure Pressure -Treatment Response Procedure Procedure Procedure Tolerated Well Tolerated Well Tolerated Well -Offloading No -Debridement - Subq, 1st 20sq cm Yes Yes Yes Pain Scale: 0-10 Numeric Is Patient Pain Free? Yes Yes Yes - Nurse 3 - General Ulcer D/C NN Start: 01/12/24 11:20 Freq: Status: Active Protocol: Activity Type Activity Date Activity User E-sign Co-sign Detail Recorded Client Recorded Date Recorded By Document 01/12/24 12:26 RB wound center 01/12/24 12:27 RB Document 01/19/24 11:40 DS 1 01/19/24 11:41 DS Document 01/26/24 12:01 [facility] 01/26/24 12:02 BMF 01/12/24 01/19/24 01/26/24 12:26 11:40 12:01 Wound Care Center Nurse 3 1. L foot dorsal -Ulcer Cleansing Rinsed/ Rinsed/ Rinsed/ Irrigated with Irrigated with Irrigated with Saline Saline Saline -Foul Odor after Cleansing No -Primary Dressing Applied AMD Dressing AMD Dressing AMD Dressing 4x4,C Hydrogel 4x4,C Hydrogel 4x4,Promogran ($),Collagen ($) Angie Matter Powder ($) -Other Dressing PER KW ORAL SURGERY ASSISTANT -Primary Dressing Covered/Secured with Dry Gauze,Dry Dry Gauze & Dry Gauze & Gauze & Roll Roll Gauze, Roll Gauze, Gauze,Secured Secured with Secured with with Tape Tape Tape -AMD Dressing 4x4 2 1 2 -Promogran Angie Matter 1 Treatment Response Procedure Tolerated Well Pain Scale: 0-10 Numeric Is Patient Pain Free? Yes Yes Yes - Visit Discharge Discharge Condition Stable Stable Stable Ambulatory Status Ambulatory Ambulatory Ambulatory Transportation Private Auto Private Auto Private Auto Medication Reconcilliation completed & No Yes provided to patient/care provider Clinical Summary of Care Provided Yes Yes Assessment/Plan Assessment/Plan (1) Non-pressure chronic ulcer of other part of left foot with fat layer exposed: CODE(S): L97.522 - Non-pressure chronic ulcer of other part of left foot with fat layer exposed (2) Type 2 diabetes mellitus without complications: CODE(S): E11.9 - Type 2 diabetes mellitus without complications (3) Type 2 diabetes mellitus with foot ulcer: CODE(S): E11.621 - Type 2 diabetes mellitus with foot ulcer; L97.509 - Non-pressure chronic ulcer of other part of unspecified foot with unspecified severity (4) Essential (primary) hypertension: CODE(S): I10 - Essential (primary) hypertension (5) Obesity, unspecified: CODE(S): E66.9 - Obesity, unspecified PLAN: Plan Patient seen and evaluated Ulceration had been present for 3 weeks treated at home by patient and by PCP prior to referral to wound care center. Dorsal aspect of the left foot demonstrates full-thickness ulceration to the level of the subcutaneous tissue with healthy granular base. Wound is granulating in well. No signs of infection Ulceration underwent debridement as noted in the clinical panel above. Ulceration postdebridement measures 0.4 cm x 0.2 cm x 0.1 cm. No signs of infection. Collagen powder, hydrogel, and PHMB dressing applied to the foot. She was instructed to change dressing daily. Discussed washing with Dakin's prior to her applying the collagen powder. She was then offloaded in surgical shoe to the left foot to prevent dorsal irritation secondary to shoe gear strapping/laces. There is continued reduction in ulcerative size versus previous visit. Ulceration is granulating in well and is nearing healed status. Applied for advanced wound care product, EpiFix for application, insurance has denied stating not medically necessary. Previous A1c 7.5% on 11/23/2023. Discussed continued glycemic control to bring A1c down with goal of 6.5% to optimize wound healing. Encourage lifestyle modification with daily exercise. Discussed proper diabetic diet today. Discussed adequate protein intake to continue to aid in wound healing. Gage supplementation was also recommended. Long discussion was had with patient on 12/01/23 about the necessity to not go barefoot about her house as she has lack of protective sensation secondary to diabetic peripheral polyneuropathy. Discussed that socks include barefoot. Encouraged shoe gear to be worn at all times. Supportive shoe gear was discussed with the patient today. Patient adamantly states I am not can wear shoes in my house, I go barefoot everywhere. Discussed continued progression of ulceration with possible infection given lack of sensation increases her risk of lower extremity amputation. Patient remains adamant stating will this is the first wound I have ever had on my feet, so I think I am doing okay. Given our discussion it is obvious patient will not continue to follow recommended advice for shoe gear. Discussed signs and symptoms of infection. Discussed with the patient that if she begins to have increasing redness about the ulcerative site that moves up the foot/leg, purulent drainage from the wound site, increasing foul odor from the wound, or if she experiences fever greater than 101 degree accompanied by nausea, vomiting, chills that these are signs of a progressing infection and she should report to the ED to receive IV antibiotics and further evaluation. She voices understanding of this today. The following work up and care recommendations were made: Dressing: Wash with Dakin's. Apply collagen powder, hydrogel, PHMB dressing. Change dressing daily. Wash: Soap and water Tissue growth optimization: Collagen powder/hydrogel/PHMB dressing Offload: Surgical shoe to left foot to offload preventing dorsal irritation from shoe gear Vascular: Weakly DP and PT pulses, biphasic Doppler pulses. Edema: Currently no edema. Continue to elevate lower extremities at times of rest Infection: No signs of infection Pain: May take [id number] Tylenol for discomfort Host factors: DM type II with peripheral polyneuropathy, noncompliance in shoe gear/barefoot status, HTN, obesity I answered all the patient's questions. To return to the wound healing center in 1 week or call sooner if the patient has any questions or concerns.
[2024-02-02 11:30] VITALS: BP 123/69; PULSE 96; RESP 18; TEMP 36.6; BMI 32.8
--- NOTE | 2024-02-02 13:35 | PN.PCM_ITS ---
History of Present Illness Date of Service: 02/02/24 Chief Complaint: Left foot ulceration History of Wound: Patient is a 73-year-old female with PMHx of diabetes mellitus type 2, HTN, obesity who presents to the wound care center with new ulceration of the dorsal aspect of the left foot. Patient states that 3 weeks ago her foot began to swell and overnight developed a blister to the top of the left foot which subsequently ruptured and broke down into a ulceration. She did follow with her PCP Dr. Felder. Patient was prescribed antibiotics however she does not know what they were but did complete antibiotic course. Patient has been applying antibiotic ointment and Band-Aids to the top of the foot. Patient feels that her wound is not progressing and healing. Her most recent A1c on 11/23/2023 was 7.5%. Patient states that she was down around 6.4% however this has gone up since last year. Patient continues to wear shoe gear but states she goes barefoot inside of her house and refuses to wear shoe gear inside house. She denies constitutional symptoms. Denies further complaints. Subjective Subjective This is a 73-year-old female who presents to the wound care center today for a follow-up of a left dorsal foot ulceration. She states that she has been continuing to change the dressing daily with the collagen powder. She believes the ulcer has healed today. Denies constitutional symptoms. Denies further complaints. Objective Data Objective Data Vital Signs: Vital Signs Temp Pulse Resp BP O2 Del Method 97.8 F 96 18 123/69 H Room Air 02/02/24 11:30 02/02/24 11:30 02/02/24 11:30 02/02/24 11:30 02/02/24 11:30 Oxygen Delivery Method Room Air Weight: 92.079 kg Body Mass Index (BMI) 32.8 Physical Exam Const alert, oriented x3 and no apparent distress General Appearance: cooperative HEENT normocephalic Eyes General Eye: normal appearance of both eyes Neck General: normal visual inspection Lymph Lymphatic: no lymphadenopathy noted and no lymphedema noted Resp normal respiratory effort Cardio regular rate and regular rhythm Extremity normal capillary refill, no joint enlargement, no calf tenderness and no pedal edema Extremity Narrative: Vascular: DP and PT pulses weakly palpable bilateral. CFT less than 5 seconds to digits of foot bilateral. Doppler demonstrates biphasic pedal pulses bilateral. Normal temperature gradient. Hair growth is diminished to the digits of the foot bilateral. Neurologic: Gross sensation intact. Light sensation intact. Protective sensation is diminished to bilateral foot consistent with diabetic peripheral polyneuropathy. Dermatological: Skin is mildly xerotic on the plantar aspect. Skin demonstrates normal turgor. Negative Stemmer sign second digit bilateral. Dorsal aspect of the left foot demonstrates healed ulcer. No signs of infection. Musculoskeletal: Muscle strength 5 of 5 age-appropriate bilateral. Decreased range of motion of the ankle joint dorsiflexion with the knee extended without pain or crepitus bilateral. Decreased range of motion of the first metatarsophalangeal joint in dorsiflexion without pain or crepitus bilateral. Skin no rashes or lesions noted, skin turgor normal and no jaundice Neuro moves all extremities Debridement Note Debridement Note No debridement was completed: No debridement was completed today Post-Debridement Measurements and Additional Note: Post-Debridement Measurements/Treatment - Nurse 1 - General Ulcer Assessment Start: 01/12/24 11:20 Freq: Status: Active Protocol: MACIE Activity Type Activity Date Activity User E-sign Co-sign Detail Recorded Client Recorded Date Recorded By Document 01/12/24 11:21 DL 10.10.25.7 01/12/24 11:25 DL Document 01/19/24 11:22 0000 01/19/24 11:29 Document 01/26/24 11:25 DL [email or web address] 01/26/24 11:31 DL Edit Result 01/26/24 11:25 DL (1) [id number] 01/26/24 11:38 DL Document 02/02/24 11:30 GM 02/02/24 11:37 GM (1) Pulse Rate (60-100) => 91 Pulse Location => Monitor Blood Pressure (90/60-120/80) => 93/60 Blood Pressure Mean (mm Hg) => 71 Source => Monitor 01/12/24 01/19/24 01/26/24 11:21 11:22 11:25 - Today's Visit Information Type of service Follow-up Visit Follow-up Visit Follow-up Visit (Physician/MOTION PICTURE FILM EXAMINER (Physician/MOTION PICTURE FILM EXAMINER (Physician/MOTION PICTURE FILM EXAMINER ) ) ) Arrival Mode Ambulatory Ambulatory Ambulatory Transfer Assistance None None Patient Identification Verified (Name & Yes Yes Yes ) Patient Requires Transmission-Based No No No Precautions Height and Weight Body Mass Index (BMI) 32.8 32.8 32.8 BMI Classification Obese Obese Obese Vital Signs Temperature (97.8 F-99.1 F) 96.9 F L 98.0 F 97.6 F L Temperature Source Temporal Temporal Temporal Pulse Rate (60-100) 93 93 91 Pulse Location Monitor Monitor Monitor Respiratory Rate (12-18) 18 16 20 H Respiratory rate source Observation Observation Observation Oxygen Delivery Method Blood Pressure (90/60-120/80) 133/79 H 141/85 H 93/60 Blood Pressure Mean (mm Hg) 97 103 71 Source Monitor Monitor Monitor Position Semi-Fowlers Blood Pressure Location Left Arm History Since Last Visit- (Skip if this is Patient's initial visit) Have you changed medications since your No No No last visit? Any new allergies or adverse reactions No No No Had a fall/change in ADL's that may No No No increase risk of falls Signs or symptoms of abuse and/or No No No neglect since last visit Have you been in the hospital since your No No No last visit? Has dressing in place as prescribed Yes Yes Yes Has compression in place as prescribed No No N/A Has offloadiing in place as prescribed Yes Yes Experienced any changes in pain level or No No No management Left Footwear Surgical Shoe with pressure relief insole Right Footwear Regular Shoe Pain Scale: 0-10 Numeric Is Patient Pain Free? Yes Yes Yes 02/02/24 11:30 WC - Today's Visit Information Type of service Follow-up Visit (Physician/MOTION PICTURE FILM EXAMINER ) Arrival Mode Ambulatory Transfer Assistance None Patient Identification Verified (Name & Yes ) Patient Requires Transmission-Based Precautions Height and Weight Body Mass Index (BMI) 32.8 BMI Classification Obese Vital Signs Temperature (97.8 F-99.1 F) 97.8 F Temperature Source Oral Pulse Rate (60-100) 96 Pulse Location Monitor Respiratory Rate (12-18) 18 Respiratory rate source Observation Oxygen Delivery Method Room Air Blood Pressure (90/60-120/80) 123/69 H Blood Pressure Mean (mm Hg) 87 Source Monitor Position Sitting Blood Pressure Location Left Arm History Since Last Visit- (Skip if this is Patient's initial visit) Have you changed medications since your No last visit? Any new allergies or adverse reactions No Had a fall/change in ADL's that may No increase risk of falls Signs or symptoms of abuse and/or No neglect since last visit Have you been in the hospital since your No last visit? Has dressing in place as prescribed Yes Has compression in place as prescribed N/A Has offloadiing in place as prescribed Yes Experienced any changes in pain level or No management Left Footwear Surgical Shoe with pressure relief insole Right Footwear Regular Shoe Pain Scale: 0-10 Numeric Is Patient Pain Free? Yes WC - Nurse 1 - General Ulcer Measurement Start: 01/12/24 11:20 Freq: Status: Active Protocol: Activity Type Activity Date Activity User E-sign Co-sign Detail Recorded Client Recorded Date Recorded By Document 01/12/24 11:21 DL [email or web address] 01/12/24 11:25 DL Document 01/19/24 11:22 JF 0000 01/19/24 11:29 JF Document 01/26/24 11:25 DL .10.25.7 01/26/24 11:31 DL Document 02/02/24 11:30 GM 02/02/24 11:37 GM 01/12/24 01/19/24 01/26/24 11:21 11:22 11:25 Wound Center Nurse 1 1. L foot dorsal -Combined with other wound No -Current Size (cm) - Length 0.8 0.1 0.1 -Current Size (cm) - Width 0.5 0.1 0.1 -Current Size (cm) - Depth 0.4 0.1 0.1 -Total Square Cm 0.40 0.01 0.01 -Date of Last Picture (Recall this field) -Photo Taken No Yes -Epithelialization -Tunneling No -Undermining/Tunneling No -Circular Undermining No -Exudate Amt Medium None Present Small -Exudate Type Serosanguineous -Wound Margin Distinct, Flat & Intact Distinct, Outline Outline Attached Attached -Granulation Amt Large (67-100%) Small (1-33%) Large (67-100%) -Granulation Quality Red Emison Emison -Slough/Fibrin No -Necrosis Amt Small (1-33%) None Present (0 %) -Necrotic Tissue Type Adherent Slough -Structure Exposed N/A N/A N/A -Texture (Stormy-wound Skin Appearance) Scarring Assessed Scarring -Moisture (Stormy-wound Skin Appearance) No Abnormality Assessed,Dry/ No Abnormality Scaly -Color (Stormy-wound Skin Appearance) No Abnormality Assessed No Abnormality -Temperature (Stormy-wound Skin No Abnormality No Abnormality No Abnormality Appearance) (Pt Warm) (Pt Warm) (Pt Warm) -Tenderness on Palpation (Stormy-wound No No No Skin Appearance) -Ulcer Cleansing Soap and Water Rinsed/ Rinsed/ Irrigated with Irrigated with Saline Saline -Foul Odor after Cleansing No No No -Anesthetic Used 5% Lidocaine 5% Lidocaine 5% Lidocaine Gel Gel Gel -Wound Comment(s) Lower Limb Edema Present NA 02/02/24 11:30 Wound Center Nurse 1 1. L foot dorsal -Combined with other wound -Current Size (cm) - Length 0.1 -Current Size (cm) - Width 0.1 -Current Size (cm) - Depth 0.1 -Total Square Cm 0.01 -Date of Last Picture (Recall this 02/02/24 field) -Photo Taken Yes -Epithelialization Large 67-100% -Tunneling No -Undermining/Tunneling No -Circular Undermining No -Exudate Amt None Present -Exudate Type -Wound Margin Flat & Intact -Granulation Amt -Granulation Quality -Slough/Fibrin -Necrosis Amt -Necrotic Tissue Type -Structure Exposed -Texture (Stormy-wound Skin Appearance) -Moisture (Stormy-wound Skin Appearance) -Color (Stormy-wound Skin Appearance) -Temperature (Stormy-wound Skin Appearance) -Tenderness on Palpation (Stormy-wound Skin Appearance) -Ulcer Cleansing -Foul Odor after Cleansing -Anesthetic Used -Wound Comment(s) WOUND LOOKS HEALED Lower Limb Edema Present WC - Nurse 2 - General Ulcer CM Notes Start: 01/12/24 11:20 Freq: Status: Active Protocol: Activity Type Activity Date Activity User E-sign Co-sign Detail Recorded Client Recorded Date Recorded By Document 01/12/24 12:12 [facility] 01/12/24 12:14 BM Document 01/19/24 11:30 [facility] 01/19/24 11:38 BM Edit Result 01/19/24 11:30 BMF (1) [id number] 01/19/24 12:13 BMF Document 01/26/24 11:55 [facility] 01/26/24 12:01 BMF Document 02/02/24 13:14 BM [id number] 02/02/24 13:15 [facility] (1) 1. L foot dorsal - Correct Patient => Yes - Correct Side, Site, Position => Yes - Correct Procedure => Yes - Procedure Performed => Yes - Type of Procedure => Debridement - Clinical Debridement => Subcutaneous - Tissue Removed => Subcutaneous - Tunneling => No - Undermining/Tunneling => No - Circular Undermining => No - Wound/Ulcer Outcome => Not Healed - Ulcer Cleansing => Rinsed/Irrigated => with Saline - Foul Odor after Cleansing => No - Bioengineered Tissue => No - Bleeding Controlled with => Pressure - Treatment Response => Procedure => Tolerated Well - Debridement - Subq, 1st 20sq cm => Yes 01/12/24 01/19/24 01/26/24 12:12 11:30 11:55 Wound Center Nurse 2 1. L foot dorsal -Time 12:12 11:31 11:57 -Correct Patient Yes Yes Yes -Correct Side, Site, Position Yes Yes Yes -Correct Procedure Yes Yes Yes -Procedure Performed Yes Yes Yes -Type of Procedure Debridement Debridement Debridement -Clinical Debridement Subcutaneous Subcutaneous Subcutaneous -Tissue Removed Subcutaneous Subcutaneous Subcutaneous -Post Debridement (cm) - Length 0.9 0.6 0.4 -Post Debridement (cm) - Width 0.5 0.3 0.2 -Post Debridement (cm) - Depth 0.2 0.2 0.1 -Total Square (Post) (cm) 0.45 0.18 0.08 -Area of Debridement (cm) - Length 0.9 0.6 0.4 -Area of Debridement (cm) - Width 0.5 0.3 0.2 -Total Square (Area) (cm) 0.45 0.18 0.08 -Tunneling No No No -Undermining/Tunneling No No No -Circular Undermining No No No -Wound/Ulcer Outcome Not Healed Not Healed Not Healed -Ulcer Cleansing Rinsed/ Rinsed/ Rinsed/ Irrigated with Irrigated with Irrigated with Saline Saline Saline -Foul Odor after Cleansing No No No -Bioengineered Tissue No No No -Bleeding Controlled with Pressure Pressure Pressure -Treatment Response Procedure Procedure Procedure Tolerated Well Tolerated Well Tolerated Well -Offloading No -Debridement - Subq, 1st 20sq cm Yes Yes Yes Pain Scale: 0-10 Numeric Is Patient Pain Free? Yes Yes Yes 02/02/24 13:14 Wound Center Nurse 2 1. L foot dorsal -Time -Correct Patient -Correct Side, Site, Position -Correct Procedure -Procedure Performed -Type of Procedure -Clinical Debridement -Tissue Removed -Post Debridement (cm) - Length 0 -Post Debridement (cm) - Width 0 -Post Debridement (cm) - Depth 0 -Total Square (Post) (cm) 0 -Area of Debridement (cm) - Length 0 -Area of Debridement (cm) - Width 0 -Total Square (Area) (cm) 0 -Tunneling -Undermining/Tunneling -Circular Undermining -Wound/Ulcer Outcome Healed- Epithelialized -Ulcer Cleansing -Foul Odor after Cleansing -Bioengineered Tissue -Bleeding Controlled with -Treatment Response -Offloading -Debridement - Subq, 1st 20sq cm Pain Scale: 0-10 Numeric Is Patient Pain Free? Yes WC - Nurse 3 - General Ulcer D/C NN Start: 01/12/24 11:20 Freq: Status: Active Protocol: Activity Type Activity Date Activity User E-sign Co-sign Detail Recorded Client Recorded Date Recorded By Document 01/12/24 12:26 [facility] wound center 01/12/24 12:27 RB Document 01/19/24 11:40 DS 1 01/19/24 11:41 DS Document 01/26/24 12:01 [facility] 01/26/24 12:02 [facility] 01/12/24 01/19/24 01/26/24 12:26 11:40 12:01 Wound Care Center Nurse 3 1. L foot dorsal -Ulcer Cleansing Rinsed/ Rinsed/ Rinsed/ Irrigated with Irrigated with Irrigated with Saline Saline Saline -Foul Odor after Cleansing No -Primary Dressing Applied AMD Dressing AMD Dressing AMD Dressing 4x4,C Hydrogel 4x4,C Hydrogel 4x4,Promogran ($),Collagen ($) Angie Matter Powder ($) -Other Dressing PER KW LAND ACQUISITION ANALYST -Primary Dressing Covered/Secured with Dry Gauze,Dry Dry Gauze & Dry Gauze & Gauze & Roll Roll Gauze, Roll Gauze, Gauze,Secured Secured with Secured with with Tape Tape Tape -AMD Dressing 4x4 2 1 2 -Promogran Angie Matter 1 Treatment Response Procedure Tolerated Well Pain Scale: 0-10 Numeric Is Patient Pain Free? Yes Yes Yes WC - Visit Discharge Discharge Condition Stable Stable Stable Ambulatory Status Ambulatory Ambulatory Ambulatory Transportation Private Auto Private Auto Private Auto Medication Reconcilliation completed & No Yes provided to patient/care provider Clinical Summary of Care Provided Yes Yes Assessment/Plan Assessment/Plan (1) Non-pressure chronic ulcer of other part of left foot with fat layer exposed: CODE(S): L97.522 - Non-pressure chronic ulcer of other part of left foot with fat layer exposed (2) Type 2 diabetes mellitus without complications: CODE(S): E11.9 - Type 2 diabetes mellitus without complications (3) Type 2 diabetes mellitus with foot ulcer: CODE(S): E11.621 - Type 2 diabetes mellitus with foot ulcer; L97.509 - Non-pressure chronic ulcer of other part of unspecified foot with unspecified severity (4) Essential (primary) hypertension: CODE(S): I10 - Essential (primary) hypertension (5) Obesity, unspecified: CODE(S): E66.9 - Obesity, unspecified PLAN: Plan Patient seen and evaluated Ulceration had been present for 3 weeks treated at home by patient and by PCP prior to referral to wound care center. Dorsal aspect of the left foot demonstrates healed ulceration. No signs of infection She was instructed to continue to pad and protect the area for the next 10 to 15 days. Applied for advanced wound care product, EpiFix for application, insurance has denied stating not medically necessary. Previous A1c 7.5% on 11/23/2023. Discussed continued glycemic control to bring A1c down with goal of 6.5% to optimize wound healing. Encourage lifestyle modification with daily exercise. Discussed proper diabetic diet today. Discussed adequate protein intake to continue to aid in wound healing. Gage supplementation was also recommended. Long discussion was had with patient on 12/01/23 about the necessity to not go barefoot about her house as she has lack of protective sensation secondary to diabetic peripheral polyneuropathy. Discussed that socks include barefoot. Encouraged shoe gear to be worn at all times. Supportive shoe gear was discuss ed with the patient today. Patient adamantly states I am not can wear shoes in my house, I go barefoot everywhere. Discussed continued progression of ulceration with possible infection given lack of sensation increases her risk of lower extremity amputation. Patient remains adamant stating will this is the first wound I have ever had on my feet, so I think I am doing okay. Given our discussion it is obvious patient will not continue to follow recommended advice for shoe gear. Discussed signs and symptoms of infection. Discussed with the patient that if she begins to have increasing redness about the ulcerative site that moves up the foot/leg, purulent drainage from the wound site, increasing foul odor from the wound, or if she experiences fever greater than 101 degree accompanied by nausea, vomiting, chills that these are signs of a progressing infection and she should report to the ED to receive IV antibiotics and further evaluation. She voices understanding of this today. The following work up and care recommendations were made: Dressing: Pad and protect for the next 10 to 15 days as ulceration has healed Wash: Soap and water Tissue growth optimization: None Offload: Surgical shoe to left foot to offload preventing dorsal irritation from shoe gear Vascular: Weakly DP and PT pulses, biphasic Doppler pulses. Edema: Currently no edema. Continue to elevate lower extremities at times of rest Infection: No signs of infection Pain: May take [id number] Tylenol for discomfort Host factors: DM type II with peripheral polyneuropathy, noncompliance in shoe gear/barefoot status, HTN, obesity Due to healed status patient is being discharged from the wound care center today. I answered all the patient's questions. To return to the wound healing center as needed or call sooner if the patient has any questions or concerns.
== END 2024-02-02 15:26 | disposition home or self-care (01) ==
LOC: WC 11:30
PROVIDERS: PCP Family Medicine; Referring Provider Family Medicine; Visit Provider Student in an Organized Health Care Education/Training Program
DX: E11.621 Type 2 diabetes mellitus with foot ulcer (principal); L97.522 Non-pressure chronic ulcer of other part of left foot with fat layer exposed; E11.42 Type 2 diabetes mellitus with diabetic polyneuropathy; I10 Essential (primary) hypertension; E66.9 Obesity, unspecified; Z68.32 Body mass index [BMI] 32.0-32.9, adult; Z91.199 Patient's noncompliance with other medical treatment and regimen due to unspecified reason
CPT/HCPCS: 11042; 99213; G0463

== ENCOUNTER → 2024-03-06 | Outpatient (CLI) | payer MEDICARE, MEDICAID, SELFPAY ==
--- NOTE | 2024-03-06 10:33 | BI_ITS ---
MAMMOGRAPHY - BILATERAL SCREENING REASON FOR EXAM: Female, 73 years old. Routine annual screening examination. PERTINENT HISTORY: Sister with breast cancer. Grandmother with breast cancer. Aunt with breast cancer. TECHNIQUE: Digital bilateral breast [place] (3D mammographic acquisition) in the CC and MLO projections. 2-D mediolateral oblique (MLO) and craniocaudad (CC) views of both breasts were obtained. CAD: Full Field Digital Mammography with Computer Added Detection was performed. COMPARISON: Comparison is made with prior outside examination dated December 15, 2022. FINDINGS: Breast Composition: The breasts are heterogeneously dense, which may obscure small masses. There are no dominant masses or suspicious calcifications. Stable right axillary lymph nodes. No other significant abnormalities are identified. There has been no significant change since the prior study. BI/SCRN MAMM (CAD)W/[place] BILAT IMPRESSION: Stable bilateral screening mammogram. Yearly follow-up mammogram recommended. (A) ASSESSMENT CATEGORY: BIRADS Category 2: Benign. A letter regarding these results will be sent to the patient by the facility within 30 days. Approximately 10% of breast cancers are not detected by mammography. A normal mammogram should not delay biopsy of a clinically suspicious abnormality. [id number] Electronically Signed: Brian Mcintosh MD at 11:17 EDT ,
== END | disposition home or self-care (01) ==
LOC: OPBI 10:32
PROVIDERS: PCP Family Medicine; Referring Provider Family Medicine; Visit Provider Family Medicine
DX: Z12.31 Encounter for screening mammogram for malignant neoplasm of breast (principal)
CPT/HCPCS: 77063; 77067

== ENCOUNTER 2024-04-29 17:42 | Emergency (ER) | payer MEDICARE, MEDICAID, SELFPAY ==
[2024-04-29 17:42] VITALS: BP 116/82; PULSE 93; RESP 20; TEMP 36.7; O2SAT 96; BMI 33.5
--- NOTE | 2024-04-29 19:07 | EX.ED.GENINJ ---
HPI History of Present Illness Chief Complaint: Fall Detail of Chief Complaint: Patient slipped on wet floor landing on her buttocks. Complains of pain le Informant: patient Onset/Context/Timing Onset: Today (1499) Mechanism/Context: Blunt Injury and Fall (Standing position) Location of pain/injuries: - (Left buttocks) Quality of Pain: Aching Location: Left buttocks Current Severity: Mild Maximum Severity: Moderate Worsened by: Palpation Relieved by: Nothing Associated Symptoms Associated Symptoms: Negative for Parasthesias, Weakness, Loss of function, Inability to ambulate, Loss of consciousness or Amnesia Narrative Narrative: Patient is a 73-year-old woman. She was cleaning the walk-in shower. Patient states there was water on the floor. She went to turn to throat towel on it so she would not slipped. She slipped. She landed on her buttocks. She finished cleaning, made dinner ate dinner and took a shower prior to coming in. She states she applied ice. She is complains of pain in that area when she sits or pushes on it. She denies head trauma. Denies neck pain. Denies cardiac or respiratory symptoms. Moderate Prior similar symptoms: No Recent Illness/Hospitalization: No [facility] Medical History (Updated 04/29/24 @ 19:[address] Zan Palmer MD) Loose right total knee arthroplasty Vertigo Diabetes type 2, controlled HTN (hypertension) Home Medications ?Medication ?Instructions ?Recorded ?Last Taken ?Type atorvastatin 40 mg tablet 40 mg PO DAILY 12/01/23 Unknown History canagliflozin 300 mg tablet 300 mg PO DAILY 12/01/23 Unknown History (Invokana) carvedilol 6.25 mg tablet 6.25 mg PO BID 12/01/23 Unknown History lisinopril 20 mg tablet 20 mg PO DAILY 12/01/23 Unknown History metformin 500 mg tablet 500 mg PO BID 12/01/23 Unknown History phentermine 37.5 mg tablet 37.5 mg PO DAILY 12/01/23 Unknown History topiramate 25 mg tablet 25 mg PO BID 12/01/23 Unknown History Allergy/AdvReac Type Severity Reaction Status Date / Time codeine AdvReac HYPERACTIVI Verified 04/29/24 17:44 TY hydrochlorothiazide (From AdvReac DRY MOUTH Verified 04/29/24 17:44 Hyzaar) losartan (From Hyzaar) AdvReac DRY MOUTH Verified 04/29/24 17:44 pioglitazone (From Actos) AdvReac WEIGHT GAIN Verified 04/29/24 17:44 ADVAIR DISKUS AdvReac Mild ELEVATED Uncoded 05/24/23 20:25 LIVER FUNCTION Social History Smoking Status: Never smoker ROS ROS ED Constitutional Constitutional ED: Denies chills or fever(s) Eyes Eyes: Denies blurry vision or change in vision Cardiovascular Cardiovascular: Denies chest pain Respiratory/Chest Respiratory/Chest: Denies dyspnea Gastrointestinal Gastrointestinal: Denies abdominal pain Musculoskeletal Musculoskeletal: Denies back pain or neck pain Integumentary Denies rash Neurologic Neurologic: Denies paresthesias Hematologic/Lymphatic Hematologic/Lymphatic: Denies easy bleeding or easy bruising EXAM Physical Exam Const Vital Signs: 04/29/24 17:42 04/29/24 19:32 Temperature 98.0 F Temperature Source Temporal Pulse Rate 93 Respiratory Rate 20 H Respiratory Effort Normal Blood Pressure 116/82 H Blood Pressure Mean 93 Pulse Ox 96 Positive well nourished and well developed General Appearance ED: well developed and NAD HEENT atraumatic Eyes PERRL and EOMs intact bilaterally Neck full ROM Resp normal respiratory effort Cardio regular rhythm Rate: regular rate GI normal to inspection, nondistended, normoactive bowel sounds, non-tender, non-distended and no masses Back/Spine normal to inspection and no thoracic nor lumbar tenderness Back/Spine Narrative: There is pain outpatient over the left ischial tuberosity. Extremity normal to inspection and full ROM Extremity Narrative: Sebastien Sandhya 4 test causes pain in the left buttocks area in the vicinity of the left ischial tuberosity. There is pain palpation over the left ischial tuberosity. There is no pain ovation over the left greater trochanteric region. There is no pain with axial loading of the hip joint. There is no neurovascular mice of that extremity. There is no shortening. There is no discomfort with logrolling. Neuro oriented x3, CN's II-XII intact bilaterally and moves all extremities Psych mental status grossly normal and thought process normal Skin no rashes or lesions noted, no wounds, skin turgor normal and no jaundice MDM MDM MDM Narrative Medical decision making narrative: Differential diagnosis is contusion versus pelvic fracture. X-ray was obtained. Patient was offered pain medicine. She declined. Radiography Chest X-Ray - ED: 1 View and Read by ED Physician (Single view x-ray of the pelvis reveals no fracture. There is no acute process noted. This independent reviewed interpreted by me.) Diagnostic Testing: Clinical Impression(s) from Imaging Studies Pelvis X-Ray 04/29/24 19:15 IMPRESSION: Normal x-ray examination of the pelvis. Electronically Signed: Chava Fong MD at 19:28 EDT , Discharge Plan Triage Chief Complaint: Fall ED Provider: Zan Palmer Dx/Rx/DC Orders Clinical Impression: Contusion of left buttock, Type 2 diabetes mellitus without complications, Essential (primary) hypertension, Injury due to fall Instructions: ED Coccyx or Sacrum Contusion Prescriptions: No Action Invokana 300 mg tablet 300 mg PO DAILY metformin 500 mg tablet 500 mg PO BID lisinopril 20 mg tablet 20 mg PO DAILY carvedilol 6.25 mg tablet 6.25 mg PO BID Rx Instructions: must administer with a meal/food atorvastatin 40 mg tablet 40 mg PO DAILY phentermine 37.5 mg tablet 37.5 mg PO DAILY topiramate 25 mg tablet 25 mg PO BID Primary Care Provider: Jessica Felder Referrals: Jessica Felder MD [Primary Care Provider] - 1 Week if not improving Activity Restrictions/Additional Instructions: 1. Apply ice to your left buttocks 6 times a day 2. You may take Tylenol for the pain. Print Language: [place] Disposition Disposition: Home, Self Care
--- NOTE | 2024-04-29 19:15 | RAD_ITS ---
STUDY: X-RAY - PELVIS REASON FOR EXAM: Female, 73 years old. Injury/Pain -- Pain left ischial tuberosity TECHNIQUE: Three views of the pelvis were obtained. COMPARISON: None. FINDINGS: There is a non-specific bowel gas pattern. Normal visualized soft tissue structures. Normal bilateral iliac wings, sacroiliac joints and visualized sacrum. Normal visualized bilateral superior and inferior pubic rami. Normal pubic symphysis. Normal ischial tuberosities. Normal visualized right femoral head. Normal right acetabulum. Normal right hip joint. Normal visualized left femoral head. Normal left acetabulum. Normal left hip joint. RAD/Pelvis 1 or 2 Views IMPRESSION: Normal x-ray examination of the pelvis. Electronically Signed: Chava Fong MD at 19:28 EDT ,
== END 2024-04-29 20:01 | disposition home or self-care (01) ==
PROVIDERS: Emergency Provider Emergency Medicine; PCP Family Medicine; Visit Provider Emergency Medicine
DX: S30.0XXA Contusion of lower back and pelvis, initial encounter (principal); E11.9 Type 2 diabetes mellitus without complications; I10 Essential (primary) hypertension; W01.198A Fall on same level from slipping, tripping and stumbling with subsequent striking against other object, initial encounter; Y93.89 Activity, other specified; Z79.899 Other long term (current) drug therapy; Z79.84 Long term (current) use of oral hypoglycemic drugs; Z96.651 Presence of right artificial knee joint
CPT/HCPCS: 72170; 99282

== ENCOUNTER → 2025-01-18 | Outpatient (CLI) | payer MEDICARE, MEDICAID, SELFPAY ==
[2025-01-18 15:20] LABS: Absolute Lymphocyte Count 2.66 X10^3/uL (0.83-4.51); Absolute Neutrophil Count 4.6 X10^3/uL (2.0-7.7); Basophil# 0.05 X10^3/uL; Basophil% 0.6 % (0-1); Eosinophil# 0.68 X10^3/uL; Eosinophils% 7.8 % (0-5); Hematocrit 39.9 % (37-47); Hemoglobin 12.7 g/dL (12.0-15.0); Lymphocyte # 2.66 X10^3/ul (0.83-4.51); Lymphocyte % 30.7 % (19-41); Mean Corp Hgb Conc 31.8 g/dL (32-36); Mean Corpuscular Hgb 31.7 pg (27.0-32.0); Mean Corpuscular Volume 99.5 fL (81-99); Mean Platelet Vol. 11.4 fl (6.2-12.0); Monocyte# 0.64 X10^3/uL; Monocyte% 7.4 % (0-10); NRBC Flagged by Analyzer 0 % (0-5); Neutrophil # 4.62 X10^3/uL (2.7-7.7); Neutrophil % 53.3 % (47-70); Platelet Count 257 K/mm3 (150-450); RBC Distribution Width CV 13.7 % (11.6-14.6); RBC Distribution Width SD 49.9 fl (35.1-43.9); Red Blood Count 4.01 M/mm3 (4.2-5.4); White Blood Count 8.7 K/mm3 (4.4-11.0)
[2025-01-18 17:42] LABS: ALB/GLOB Ratio 1.8 RATIO (0.9-2.4); AST(SGOT) 19 U/L (<=31); Alanine Aminotransfer ALT/SGPT 25 U/L (<=34); Albumin, Serum 4.2 g/dL (3.4-4.8); Alkaline Phosphatase 69 U/L (35-104); Anion Gap 12 (5-15); BUN 18 mg/dL (4-19); BUN/Creat Ratio 15.9 RATIO (10-20); Calcium,Total 9.8 mg/dL (7.6-11.0); Carbon Dioxide 21.2 mmol/L (21.0-32.0); Chloride 108 mmol/L (98-108); EST Glomerular Filtration Rate 52 (>60); Globulin 2.3 g/dL (2.2-4.2); Glucose 115 mg/dL (70-99); Protein, Total 6.5 g/dL (5.9-8.4); Sodium Level 141 mmol/L (133-145); Total Bilirubin 0.56 mg/dL (0.00-1.30); Vitamin D,25 Hydroxy 43.9 ng/mL (30-100)
== END | disposition home or self-care (01) ==
LOC: MFPLAB 10:13
PROVIDERS: PCP Family Medicine; Referring Provider Family Medicine; Visit Provider Family Medicine
DX: I12.9 Hypertensive chronic kidney disease with stage 1 through stage 4 chronic kidney disease, or unspecified chronic kidney disease (principal); N18.32 Chronic kidney disease, stage 3b
CPT/HCPCS: 36415; 80053; 82306; 85025

== ENCOUNTER → 2025-03-07 | Outpatient (CLI) | payer MEDICARE, MEDICAID, SELFPAY ==
--- NOTE | 2025-03-07 10:38 | BI_ITS ---
EXAM: SCRN MAMM (CAD)W/[place] BILAT DATE: 03/07/2025 CLINICAL HISTORY: F, Age 74 y/o , SCREENING Sister with breast cancer. Grandmother with breast cancer. Aunt with breast cancer. TECHNIQUE: SCRN MAMM (CAD)W/[place] BILAT COMPARISON: Prior exam(s) dated March 06, 2025.. FINDINGS: TISSUE DENSITY: The breasts are heterogeneously dense, which may obscure small masses. Bilateral Breast Mammographic Findings: No significant masses, calcifications or other abnormalities are identified. Stable scattered bilateral calcifications most likely secretory in nature. No suspicious masses, areas of developing architectural distortion, or suspicious calcifications. There has been no significant interval change. BI/SCRN MAMM (CAD)W/[place] BILAT IMPRESSION: Stable examination. OVERALL FINAL ASSESSMENT BI-RADS 2: BENIGN RECOMMENDATION: Routine annual follow-up in 1 Year A letter with findings and recommendations will be mailed to the patient. Reading Location: [facility]
== END | disposition home or self-care (01) ==
LOC: OPBI 10:37
PROVIDERS: PCP Family Medicine; Referring Provider Family Medicine; Visit Provider Family Medicine
DX: Z12.31 Encounter for screening mammogram for malignant neoplasm of breast (principal); Z80.3 Family history of malignant neoplasm of breast
CPT/HCPCS: 77063; 77067